=== PATIENT | male | born 1945 | race Caucasian/White ===

== ENCOUNTER 2020-10-31 07:32 | Outpatient (REF) | payer MEDICARE, SELFPAY ==
--- NOTE | ~2020-10-31 | XR_ITS ---
EXAMINATION: XR KNEE, RIGHT XR KNEE, STANDING BILATERAL CLINICAL INFORMATION: Pain. COMPARISON: Right knee on 06/04/2018 TECHNIQUE: Two views right knee and AP bilateral knees standing. FINDINGS: There is a right knee arthroplasty with a femoral and tibial component well articulated with no evidence of loosening. No soft tissue swelling seen on the lateral view. On AP bilateral knee exam, the right knee prosthesis is visualized in alignment. Mild reduction in the lateral and medial compartment joint space left knee is seen. No fracture seen in left knee. 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 No joint effusion is visualized on the present exam. There is no prosthetic loosening.
--- NOTE | ~2020-10-31 | XR_ITS ---
EXAMINATION: XR KNEE, RIGHT XR KNEE, STANDING BILATERAL CLINICAL INFORMATION: Pain. COMPARISON: Right knee on 06/04/2018 TECHNIQUE: Two views right knee and AP bilateral knees standing. FINDINGS: There is a right knee arthroplasty with a femoral and tibial component well articulated with no evidence of loosening. No soft tissue swelling seen on the lateral view. On AP bilateral knee exam, the right knee prosthesis is visualized in alignment. Mild reduction in the lateral and medial compartment joint space left knee is seen. No fracture seen in left knee. 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 No joint effusion is visualized on the present exam. There is no prosthetic loosening.
== END 2020-10-31 07:33 | disposition home or self-care (01) ==
LOC: HO.HOSX 07:32
PROVIDERS: Visit Provider Orthopaedic Surgery
DX: M25.461 Effusion, right knee (principal); M25.562 Pain in left knee; Z96.651 Presence of right artificial knee joint
CPT/HCPCS: 73560; 73565; 99202

== ENCOUNTER → 2020-11-08 10:54 | Outpatient (REF) | payer MEDICARE, SELFPAY ==
--- NOTE | ~2020-11-08 | NM_ITS ---
EXAMINATION: 3 PHASE BONE SCAN CLINICAL INFORMATION: Right knee pain and effusion. Total right knee arthroplasty. COMPARISON: Right knee x-ray 10/31/2020. TECHNIQUE: Following intravenous administration of 26 mCi of 99m- technetium MDP, three-phase bone scan of both knees and whole body third phase was obtained. FINDINGS: On the first phase of bone scan there is significant increased perfusion seen to the right knee. On second phase bone scan there is increased blood pool activity about the right knee joint. On third phase bone scan there is increased activity seen in the right anterior patella and the left medial joint with prosthesis-appearing area. On the third phase whole body scan there is no abnormal activity seen in the calvarium, neck, ribs or the upper extremities. There is smooth scoliosis of dorsolumbar spine. Both kidneys are joined at the interpole suggestive of horseshoe-shaped kidneys with mild focal caliectasis of the left kidney. Moderate intense activity seen in the right patella and moderate activity in the right knee joint. Also visualized is mild increased activity in the left ankle joint. NM/NM bone 3 phase IMPRESSION: Abnormal three-phase bone scan right knee with significant activity in the patella and medial femoral condyle. Also visualized is a right knee photopenic defect from prosthesis. Increased activity in patella may be related to osteomyelitis or osteonecrosis. Correlate with clinical exam. Also visualized is mild increased activity in the medial femoral condyle. Mild degenerative changes left ankle mortise. 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
== END ==
LOC: HO.NUCMED 10:54
PROVIDERS: PCP Physician Assistant Medical; Visit Provider Orthopaedic Surgery
DX: M25.461 Effusion, right knee (principal); Z96.651 Presence of right artificial knee joint
CPT/HCPCS: 78315; A9503

== ENCOUNTER → 2020-11-30 09:50 | Outpatient (BNVA) | payer MEDICARE, SELFPAY | PROVIDERS: Visit Provider Orthopaedic Surgery | DX: T84.032D Mechanical loosening of internal right knee prosthetic joint, subsequent encounter (principal) | CPT/HCPCS: 99212 ==

== ENCOUNTER → 2021-01-02 10:37 | Outpatient (BNVA) | payer MEDICARE, SELFPAY | PROVIDERS: PCP Physician Assistant Medical; Visit Provider Orthopaedic Surgery | DX: Z01.812 Encounter for preprocedural laboratory examination (principal); Z01.810 Encounter for preprocedural cardiovascular examination | CPT/HCPCS: 93005 ==

== ENCOUNTER → 2021-01-23 13:04 | Outpatient (BNVA) | payer MEDICARE, SELFPAY | PROVIDERS: PCP Physician Assistant Medical; Visit Provider Internal Medicine | DX: Z01.810 Encounter for preprocedural cardiovascular examination (principal); I48.0 Paroxysmal atrial fibrillation; I51.9 Heart disease, unspecified; E78.00 Pure hypercholesterolemia, unspecified; Z87.891 Personal history of nicotine dependence; Z88.1 Allergy status to other antibiotic agents; Z79.01 Long term (current) use of anticoagulants; Z79.899 Other long term (current) drug therapy | CPT/HCPCS: 99202 ==

== ENCOUNTER → 2021-01-29 09:18 | Outpatient (REF) | payer MEDICARE, SELFPAY ==
--- NOTE | 2021-01-29 09:22 | CA_ITS ---
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 - There is mild aortic valve regurgitation. Findings Left Ventricle Normal left ventricular cavity size. There is mildly increased left ventricular wall thickness. The left ventricular systolic function is low normal. E/E prime ratio is <8, consistent with normal filling pressures. Evidence suggests grade I (mild) diastolic dysfunction. Visually estimated LVEF about 50%. Right Ventricle Normal right ventricular cavity size and systolic function. Atria The left atrium is mildly dilated. The right atrium is normal in size. Aortic Valve There is a normal trileaflet aortic valve. There is no aortic valve stenosis. There is mild aortic valve regurgitation. Mitral Valve The mitral valve appears normal. There is no mitral valve stenosis. Trace to mild mitral regurgitation. Pulmonic Valve The pulmonic valve was not well visualized. Tricuspid Valve Normal tricuspid valve structure. There is trace tricuspid valve regurgitation. The pulmonary artery systolic pressure is normal. Great Vessels The asc aorta is normal in size. Venous The inferior vena cava is normal in size and collapses greater than 50% with inspiration. Pericardium/Pleural Prominent epicardial adipose tissue noted. Prior Study Comparison No prior study available for comparison. Measurements 2D Linear Measurements IVSd: 1.01 0.6-0.9/0.6-1.0 cm LVIDd: 4.26 3.9-5.3/4.2-5.9 cm LVIDd Index: 2.32 2.4-3.2/2.2-3.1 cm/m2 LVIDs: 3.19 2.0-3.6 cm LVPWd: 1.06 0.7-1.1 cm Ao Root: 3.70 2.1-3.5 cm LA Diam: 3.70 2.7-3.8/3.0-4.0 cm LAIDs Index: 2.01 1.5-2.3 cm/m2 LV Mass: 183.38 67-162/88-224 g LV Mass Index: 99.66 43-95/49-115 g/m2 LVOT Diam: 2.20 3.0+(-)1.3 cm 2D Systolic Function EF 4C: 44.20 >55% EF 2C: 46.50 >55% EF BiP: 45.90 >55% Mitral Valve MV Pk E: 0.45 MV PK A: 0.70 MV Decel Time: 366.00 E/A: 0.60 E'Lateral: 6.74 E'Medial: 7.18 E/E' Med: 6.30 E/E' Lat: 6.70 PHT: 107.00 MVA PHT: 2.06 Decel Mora: 1.23 Aortic Valve AoV Pk Sulaiman: 1.33 AoV Mn Sulaiman: 0.76 AoV VTI: 0.27 AoV Pk Grad: 7.00 Aov Mn Grad: 3.00 JANETTE Cont.VTI: 3.50 AI Pk Sulaiman: 3.65 AI Mora: 1.37 LVOT LVOT Pk Sulaiman: 1.07 LVOT Mn Sulaiman: 0.56 LVOT VTI: 0.25 LVOT Pk Grad: 5.00 LVOT Mn Grad: 2.00 LVOT Diam: 2.20 LVOT Area: 3.80 Diastolic Function MV Pk E: 0.45 MV Pk A: 0.70 E/A: 0.60 E'Medial: 7.18 E/E' Med: 6.30 E' Laterial: 6.74 E/E' Lat: 6.70 Right Ventricle TAPSE (mm): 24.00 TVS' Sulaiman: 13.00 Tricuspid Valve TR Pk Sulaiman: 2.11 TR Pk Grad: 18.00 RA Press: 3.00 RVSP: 21.00 Great Vessels Aorta Ao Root-2D: 3.70 2.0-3.7 cm Pulmonary Valve PV Pk Sulaiman: 0.84 Peak PV Grad: 3.00 Updated in Other Vendor System with Status of Final Von Gu MD electronically signed on 01/29/2021 11:54:56 AM with status of Final
== END ==
LOC: HO.CARD 09:18
PROVIDERS: Visit Provider Internal Medicine
DX: I48.0 Paroxysmal atrial fibrillation (principal)
CPT/HCPCS: 93306

== ENCOUNTER → 2021-01-30 09:22 | Outpatient (REF) | payer MEDICARE, SELFPAY ==
--- NOTE | ~2021-01-30 | NM_ITS ---
Myocardial perfusion study Indication: Preoperative cardiovascular risk stratification Technique: The patient was brought in for a Lexiscan perfusion study on 01/30/2021. Patient performed low-level exercise and was injected 0.4 mg of Lexiscan intravenously. Within a minute of injection, 25 mCi of sestamibi was given intravenously. Images were obtained using the SPECT gamma camera interlaced with the gating device. Images were obtained in supine position. Resting perfusion study was performed on 01/31/2021. Patient was administered 25 mCi of sestamibi intravenously at rest. Images were then obtained in supine position. Images obtained with and without CT attenuation. Total DLP 111 mGy-cm. Images were processed with the software and compared side to side in short axis, horizontal long axis and vertical long axis views. Findings: The stress perfusion study showed nonattenuated images show mildly to moderately reduced uptake in the inferior wall of the LV myocardium. Is also mildly reduced uptake in the inferoseptal wall of the LV myocardium. Remainder of the LV myocardium is normally perfused. Attenuation corrected images show mildly reduced uptake in the anterior wall and moderately to severely reduced uptake in the apex as well as mildly reduced uptake in the inferior wall of the LV myocardium. Lateral wall with normal perfusion.. The gated study shows reduced LV systolic function with calculated LVEF of 46%. LV cavity is mildly to moderately dilated size. The gated study shows reduced wall thickening and contraction of inferior segments. Resting study shows nonattenuated images show mildly to moderately reduced uptake in the inferior as well as inferoseptal wall of the LV myocardium. Remainder of the LV myocardium is normally perfused. Attenuation corrected images show normal uptake in the anterior wall of the LV myocardium. There is also improved uptake in the apex.. Gating at rest reveals inferior wall motion abnormality with ejection fraction at 50%. The findings are consistent with fixed inferior defect most suggestive of nontransmural infarct in the RCA territory. Inferior wall is normally perfused on nonattenuated images which may suggest normal perfusion. However there is abnormality noted on nonattenuated images.. NM/NM cardiolite stress test Impression: 1. Myocardial perfusion imaging study shows fixed inferior defect suggestive nontransmural infarct. There is no clear reversible defect on nonattenuated images suggestive of ischemia. 2. Gated LVEF is 46% with stress and 50% with rest 3. Transient ischemic dilatation present EKG is nondiagnostic for ischemia
--- NOTE | 2021-01-30 09:25 | CA_ITS ---
Acquisition Time: 2021-01-30 09:24:55 Total Exercise Time: 00:02:00 Test Indications: Abnormal ECG Medications: FLECAINIDE PRAVASTATIN WARFARIN Protocol: LEXISCAN Max HR: 096 BPM 67% of Pred: 143 BPM Max BP: 150/062 mmHG Max Work Load: 1.0 METS Pharmacological stress test with Lexiscan injection, while sitting and kicking his legs, without anginal symptoms, without arrythmia, with normotensive response to injection, with nondiagnostic EKG for ischemia. In recovery he reported shortness of breath and lightheadedness that was treated with aminophylline 75mg IVP to reverse Lexiscan with improvement in symptoms. Nuclear images pending. Test reviewed with Dr Gu. Referred By: Von Gu Overread By: RAYNA WAN
== END ==
LOC: HO.CARD 09:22
PROVIDERS: Visit Provider Internal Medicine
DX: Z01.810 Encounter for preprocedural cardiovascular examination (principal)
CPT/HCPCS: 78452; 93017; A9500; J0280; J2785

== ENCOUNTER 2021-02-04 12:47 | Outpatient (REF) | payer MEDICARE, SELFPAY ==
--- NOTE | ~2021-02-04 | XR_ITS ---
EXAMINATION: XR KNEE, RIGHT CLINICAL INFORMATION: Right knee pain. COMPARISON: 10/31/2020 and studies dating back to 09/16/2009 TECHNIQUE: AP and lateral views of the right knee. FINDINGS: The patient status post right knee arthroplasty. The femoral and tibial components appear in alignment on lateral view. No evidence of fracture or loosening. There is a right knee effusion. Vascular calcifications are noted. XR/XR knee RT 2V IMPRESSION: Status post right total knee arthroplasty without acute fracture or evidence of loosening. Right knee effusion.
[2021-02-04 18:29] LABS: Erythrocyte Sedimentation Rate 23 MM/HR (0-15)
== END 2021-02-04 12:48 | disposition home or self-care (01) ==
LOC: HO.HOSX 12:47
PROVIDERS: Visit Provider Orthopaedic Surgery
DX: M25.561 Pain in right knee (principal); Z87.891 Personal history of nicotine dependence; Z96.651 Presence of right artificial knee joint
CPT/HCPCS: 36415; 73560; 85652; 86140; 99212

== ENCOUNTER → 2021-02-11 11:59 | Outpatient (BNVA) | payer MEDICARE, SELFPAY | PROVIDERS: Visit Provider Orthopaedic Surgery | DX: M25.461 Effusion, right knee (principal); Z96.651 Presence of right artificial knee joint | CPT/HCPCS: 20610; 99212 ==

== ENCOUNTER → 2021-02-14 13:04 | Outpatient (BNVA) | payer MEDICARE, SELFPAY | PROVIDERS: Visit Provider Orthopaedic Surgery | DX: T84.59XA Infection and inflammatory reaction due to other internal joint prosthesis, initial encounter (principal); Z96.659 Presence of unspecified artificial knee joint | CPT/HCPCS: 99212 ==

== ENCOUNTER 2021-02-19 07:47 | Inpatient (IN) | payer MEDICARE, SELFPAY ==
[2021-02-18 13:00] VITALS: BP 178/72; PULSE 50; RESP 20; O2SAT 96; BMI 25.0
--- NOTE | 2021-02-18 13:27 | HO.ANESPROP2 ---
Documented by User: Elinor Godinez NP 02/18/21 14:44 HPI - Anesthesia Eval Consult details Narrative: 75yo M for Right Knee Total resection with antibiotic spacer insertion R TKA done 2016 Cardiac cleared at [facility] Coumadin for afib Pt stacy at [facility]. Recently started on Metoprolol by cardiology (switched from flecinide). PCP clearance lists ADR with metoprolol (severe bradycardia). Case reviewed with Dr Carmen. Pt to hold metoprolol preop. [facility] Active Problems Active Problems: All Active Problems (Updated 02/15/21 @ 08:20 by Izabella Herrera RN) Effusion, right knee (Acute) History of total right knee replacement (TKR) (Acute) Mechanical loosening of internal right knee prosthetic joint, subsequent encounter (Acute) PAF (paroxysmal atrial fibrillation) (Acute) Preoperative cardiovascular examination (Acute) Encounter for monitoring anti-arrhythmic therapy (Acute) Infected prosthetic knee joint (Acute) Past Medical History Medical History (Updated 02/15/21 @ 08:20 by Izabella Herrera RN) Abnormal gait Arthritis Atrial fibrillation Benign essential hypertension BPH (benign prostatic hyperplasia) Coronary arteriosclerosis in [place] artery Glaucoma Heart disease High cholesterol Myocardial infarct, old Raynaud phenomenon RBBB (right bundle branch block) Family History Family History Father No problems noted. Mother No problems noted. Family history of problems with anesthesia: No Surgical History Surgical History (Updated 02/18/21 @ 13:11 by Izabella Herrera RN) History of bunionectomy of left great toe History of cardiac radiofrequency ablation History of cystoscopy History of left inguinal hernia repair History of meniscectomy of right knee History of prostate surgery History of total knee replacement History of Problems with Anesthesia: No Social History Social History Are you a primary patient centered care specialist to a significant other at home: No Do you presently have visiting nurse or other home services: No Alcohol intake: never Patient Tobacco Use Status: Former Tobacco user Quit Date: 1991 Tobacco use type: Cigarette Second Hand Smoke Exposure: No Use of substances other than those prescribed or required for medical reasons: No Have you been hit, kicked, punched, or otherwise hurt by someone within the past year? If so, by whom?: No Are you DNR?: No Advance Directives: No (Patient to bring copy DOS) Advance Directives Information Provided: Yes Advance Directives on File: No Recently lost weight without trying: No Eating poorly because of decreased appetite: No Nutrition Risks: No Nutritional Risk Current occupational status: retired Current occupation: left handed Narrative Narrative: No recent illness No CP/SOB with walking Meds Allergies Allergy/AdvReac Type Severity Reaction Status Date / Time ciprofloxacin [From CIPRO] Allergy Intermediate RASH Verified 02/11/21 12:24 Chocolate Allergy Sneezing Verified 02/18/21 13:15 milk Allergy Sneezing Verified 02/18/21 13:25 metoprolol AdvReac Severe Verified 02/18/21 13:28 Bradycardia Home Medications Medication Instructions Recorded Confirmed Last Taken Type brimonidine 0.2 % eye drops 1 drp OPHTHALMIC (EYE) BID ml 10/31/20 02/18/21 02/19/21 History dorzolamide 22.3 mg-timolol 6.8 1 drp OPHTHALMIC (EYE) BID ml 10/31/20 02/18/21 Unknown History mg/mL eye drops latanoprost 0.005 % eye drops 1 drp OPHTHALMIC (EYE) BEDTIME 10/31/20 02/15/21 02/19/21 History pravastatin 80 mg tablet 80 mg PO BEDTIME 10/31/20 02/15/21 Unknown History warfarin 2.5 mg tablet 2.5 mg PO DAILY 10/31/20 02/18/21 02/14/21 History cholecalciferol (vitamin D3) 25 25 mcg PO DAILY 02/18/21 02/18/21 Unknown History mcg (1,000 unit) capsule (Vitamin D3) Exam Exam Date and Time: February 18, 2021 1327 Height,Weight and Vital Signs: Height 5 ft 7 in Weight 72.575 kg Last Vital Signs Pulse 50 02/18/21 13:00 Resp 20 02/18/21 13:00 BP 178/72 H 02/18/21 13:00 Pulse Ox 96 02/18/21 13:00 Pertinent Lab Results Pertinent Lab Results: Laboratory Tests 01/02/21 01/02/21 11:58 11:58 WBC 6.8 Hgb 13.3 L Hct 41.2 L Plt Count 204 Sodium 141 Potassium 4.3 Chloride 109 H Carbon Dioxide 26 BUN 22 H Creatinine 1.04 Narrative Narrative: EKG 12/2020 Vent. Rate : 047 BPM ? ? Atrial Rate : 047 BPM ?? P-R Int : 192 ms? QRS Dur : 146 ms ? ? QT Int : 482 ms ? ? ? P-R-T Axes : 077 -58 035 degrees ?? QTc Int : 426 ms ? Sinus bradycardia Left axis deviation Right bundle branch block Abnormal ECG When compared with ECG of 17-AUG-2018 14:15, QT has shortened ECHO 01/29/21 Conclusions: - Visually estimated LVEF about 50%. ? - There is mild aortic valve regurgitation.? ? ? NM cardiolite stress test 01/2021 Impression: ? 1.? Myocardial perfusion imaging study shows fixed inferior defect suggestive nontransmural infarct. There is no clear reversible defect on nonattenuated images suggestive of ischemia. 2.? Gated LVEF is 46% with stress and 50% with rest 3. Transient ischemic dilatation present ? EKG is nondiagnostic for ischemia Airway Mallampati Class: I TM Dist: >3cm Neck ROM: Full Loose/Missing/Broken Teeth: Yes (Molars extracted, 1xcrown) Heart: stacy, regular Lungs: CTAB Assessment and Plan Assessment Anesthesia Assessment: Anesthesia Plan Discussed and PAT Visit Final Anesthetic Review Family History of Problems with Anesthesia: No History of Problems with Anesthesia: No Documented by User: Jeromy Beckett MD 02/19/21 10:59 [facility] Past Medical History Medical History (Updated 02/15/21 @ 08:20 by Izabella Herrera RN) Abnormal gait Arthritis Atrial fibrillation Benign essential hypertension BPH (benign prostatic hyperplasia) Coronary arteriosclerosis in [place] artery Glaucoma Heart disease High cholesterol Myocardial infarct, old Raynaud phenomenon RBBB (right bundle branch block) Family History Family History Father No problems noted. Mother No problems noted. Surgical History Surgical History (Updated 02/18/21 @ 13:11 by Izabella Herrera RN) History of bunionectomy of left great toe History of cardiac radiofrequency ablation History of cystoscopy History of left inguinal hernia repair History of meniscectomy of right knee History of prostate surgery History of total knee replacement Social History Social History Are you a primary patient centered care specialist to a significant other at home: No Do you presently have visiting nurse or other home services: No Alcohol intake: never Patient Tobacco Use Status: Former Tobacco user Quit Date: 1991 Tobacco use type: Cigarette Second Hand Smoke Exposure: No Use of substances other than those prescribed or required for medical reasons: No Have you been hit, kicked, punched, or otherwise hurt by someone within the past year? If so, by whom?: No Are you DNR?: No Advance Directives: No (Patient to bring copy DOS) Advance Directives Information Provided: Yes Advance Directives on File: No Recently lost weight without trying: No Eating poorly because of decreased appetite: No Nutrition Risks: No Nutritional Risk Current occupational status: retired Current occupation: left handed Meds Allergies Allergy/AdvReac Type Severity Reaction Status Date / Time ciprofloxacin [From CIPRO] Allergy Intermediate RASH Verified 02/11/21 12:24 Chocolate Allergy Sneezing Verified 02/18/21 13:15 milk Allergy Sneezing Verified 02/18/21 13:25 metoprolol AdvReac Severe Verified 02/18/21 13:28 Bradycardia Home Medications Medication Instructions Recorded Confirmed Last Taken Type brimonidine 0.2 % eye drops 1 drp OPHTHALMIC (EYE) BID ml 10/31/20 02/18/21 02/19/21 History dorzolamide 22.3 mg-timolol 6.8 1 drp OPHTHALMIC (EYE) BID ml 10/31/20 02/18/21 Unknown History mg/mL eye drops latanoprost 0.005 % eye drops 1 drp OPHTHALMIC (EYE) BEDTIME 10/31/20 02/15/21 02/19/21 History pravastatin 80 mg tablet 80 mg PO BEDTIME 10/31/20 02/15/21 Unknown History warfarin 2.5 mg tablet 2.5 mg PO DAILY 0602/18/21 02/14/21 History cholecalciferol (vitamin D3) 25 25 mcg PO DAILY 02/18/21 02/18/21 Unknown History mcg (1,000 unit) capsule (Vitamin D3) Assessment and Plan Final Anesthetic Review NPO: Yes ASA Class: III Final Preanesthetic Review: No Changes in Pt Med Stat, Meds/Allgs Chart Reviewed, Consent Obtained/Reviewed and Anes Risks/Benef Reviewed Patient Risk: Intermediate Procedure Risk: Intermediate Anesthetic Plan Anesthetic Plan: GA and Regional Block Disposition: Standard PACU
[2021-02-18 15:31] LABS: MRSA Nasal PCR NEGATIVE (Negative); SA Nasal PCR NEGATIVE (Negative)
[2021-02-18 15:57] LABS: Basophils Absolute Auto 0.1 X10*3/uL (0.0-0.2); Basophils Percent Auto 0.8 % (0-2); Eosinophils Absolute Auto 0.3 X10*3/uL (0.0-0.4); Eosinophils Percent Auto 4.7 % (0-4); Hematocrit 44.7 % (42-52); Imm Gran Abs Auto 0.02 X10*3/uL (0.00-0.03); Imm Gran Pct Auto 0.3 % (0.0-0.4); Lymphocytes Absolute Auto 1.3 X10*3/uL (1.2-4.9); Lymphocytes Percent Auto 19.4 % (20-40); MANUAL DIFF FLAG NO; Mean Corpuscular HGB Conc 31.3 g/dl (31.0-36.0); Mean Corpuscular Hemoglobin 28.1 pg (27.0-33.0); Mean Corpuscular Volume 89.8 fL (80-98); Mean Platelet Volume 11.2 fL (9.4-12.4); Monocytes Absolute Auto 0.8 X10*3/uL (0.1-1.2); Monocytes Percent Auto 12.6 % (2-11); Neutrophils Absolute Auto 4.1 X10*3/uL (2.0-8.3); Neutrophils Percent Auto 62.2 % (45-73); Platelet Count 287 X10*3/uL (160-400); Red Blood Count 4.98 X10*6/uL (4.60-5.80); Red Cell Distribution Width 13.1 % (11.0-16.0); White Blood Count 6.7 X10*3/uL (4.8-10.8)
[2021-02-18 16:29] LABS: C Reactive Protein 3.34 mg/dL (< or = 0.50)
[2021-02-18 16:49] LABS: Erythrocyte Sedimentation Rate 33 MM/HR (0-15)
[2021-02-19] VITALS (12 sets, daily range): BP systolic 113–161; BP diastolic 61–73; PULSE 46–73; RESP 14–18; TEMP 36.3–37.2; O2SAT 94–100
--- NOTE | ~2021-02-19 | XR_ITS ---
EXAMINATION: XR KNEE, RIGHT CLINICAL INFORMATION: Revision right TKA with spacer COMPARISON: Radiographs right knee 10/31/2020 and 02/04/2021 TECHNIQUE: AP and crosstable lateral views of the right knee are obtained. FINDINGS: There are postsurgical changes with removal right total knee arthroplasty hardware and placement of spacer. There are numerous punctate high attenuation densities adjacent to the spacer. There are degenerative changes posterior patella and some chronic mineralization in the anterior superior soft tissues again seen. No acute fracture or dislocation. There is expected gas in the anterior superficial soft tissues and suprapatellar bursa with overlying skin anoop. XR/XR knee RT 2V IMPRESSION: Postsurgical changes. No acute fracture or dislocation.
[2021-02-19 08:14] LABS: INTERNATIONAL NORM RATIO 1.3 (0.9-1.1); Prothrombin Time 14.7 SEC (9.9-13.0)
[2021-02-19 08:34] LABS: COVID-19 Test Negative (Negative)
[2021-02-19] MEDS: Lactated Ringers 1,000 ML 100 ML IVCONT (08:47)
--- NOTE | 2021-02-19 09:54 | MHC.SHP ---
Pre-Procedural Eval Section A Date of Service: 02/19/21 The patient is an INPATIENT: No Changes since office visit: Yes Patient answered all questions; No Cold of Flu in the past 2 weeks, No New Medical Problems and No Changes in Medication The History & Physical has been completed within 30 days and I have reviewed it.: Yes Section B Chief Complaint: infected knee Allergies: Allergies Allergy/AdvReac Type Severity Reaction Status Date / Time ciprofloxacin [From CIPRO] Allergy Intermediate RASH Verified 02/11/21 12:24 Chocolate Allergy Sneezing Verified 02/18/21 13:15 milk Allergy Sneezing Verified 02/18/21 13:25 metoprolol AdvReac Severe Verified 02/18/21 13:28 Bradycardia Plan I have reviewed the history and physical and performed a pertinent physical examination on my patient. No changes have occurred unless specified.
[2021-02-19 11:17] LABS: Source Synovial Fluid Right knee
[2021-02-19 11:46] LABS: MN% 16.2 %; PMN% 83.8 %
[2021-02-19 11:47] LABS: RBC Synovial Fluid < 0.002 X10*6/uL; WBC Synovial Fluid 19.205 X10*3/uL
--- NOTE | 2021-02-19 12:50 | P.BOP_ITS ---
Brief Operative Note Date of Service: 02/19/21 Pre-op diagnosis: infected right knee arthroplasty Procedure: resection arthroplasty and placement of antibiotic spacer Implants: Remedy knee spacer M/M Surgeon: Valdez Agrawal MD Anesthesia: GETA and regional Was an Angle Furnaceman used for this Procedure?: Yes Angle Furnaceman: Devante Rinaldi Estimated blood loss (mL): 250 IV fluids (mL): 1,200 Pathology: other (cultures x3) Condition: stable Disposition: PACU
--- NOTE | 2021-02-19 12:53 | W.PM.OPN ---
Operative Note Operative Note Date of Service: 02/19/21 Narrative: Pre-op diagnosis: infected right knee arthroplasty Procedure: resection arthroplasty and placement of antibiotic spacer Implants: Remedy knee spacer M/M Surgeon: Valdez Agrawal MD Anesthesia: GETA and regional Was an Aircraft Steel Fabricator used for this Procedure?: Yes Aircraft Steel Fabricator: Devante Rinaldi Estimated blood loss (mL): 250 IV fluids (mL): 1,200 Pathology: other (cultures x3) Condition: stable Disposition: PACU Indications: Patient has had pain and effusion in the right knee for years. Aspiration showed elevated cell count with elevated synovial CRP as well as serum elevation of ESR and CRP all consistent with chronic infection. He was consented to undergo resection arthroplasty with placement of antibiotic spacer. Procedure in detail: Patient was brought to the operating room placed supine on the operative table and prepped and draped in standard sterile fashion. A time-out was called to identify proper site proper procedure proper surgeon IV antibiotics per weight were not administered. I aspirated 30 mL of straw-colored turbid fluid and sent this for culture. I then made a standard midline incision down to the retinaculum and performed a medial parapatellar arthrotomy. I everted patella and performed a medial peel. My Hohmann retractors were placed and I examined the knee. There was a fulminant synovitis which was removed and suspicious looking debris in the suprapatellar pouch which was removed and sent for culture. I then used a sagittal saw to undermine the femoral component and a flexible osteotome. I was able to remove the femoral component with minimal bone loss. Cultures deep to the prosthesis were obtained and sent. IV antibiotics were then removed. I then placed my dull Hohmann to protect the popliteal fossa and used a sagittal saw again to undermine the tibial component cutting that to trabecular metal posts. Again there was minimal bone loss upon removal and I subsequently used a flexible osteotome to remove the 2 posts. On the medial side there was some bone loss distal to the post. This was a contained defect. I then sized the spacer on the back table and trialed a medium femur and a medium tibia. I was happy with the extension and stability therefore all instrumentation was removed. I then proceeded to remove all necrotic debris from both the bone in the surrounding soft tissue envelope with a rongeur and currette and 9 L of warm saline was used via pulse lavage to thoroughly irrigate the knee. I then mixed 2 bags of Pal[place] bone cement with 10 g of powdered vancomycin this was then placed on the underside of the spacer and the components were placed while in flexion. I extended the knee and was able to compress the cement with acceptable alignment of the spacer. At full extension he was stable. Once the cement was dry all excess cement was removed. I then took the knee through 110 degree range of motion and was stable. I then performed a layered closure with Quill, subcuticular monofilament followed by anoop on the skin. Patient was sent placed in sterile dressing extubated brought to recovery room stable condition there were no known complications. He be placed on IV antibiotics and we will follow him for the next 2-3 months and when there is no evidence of infection he will return for reimplantation.
[2021-02-19 12:59] LABS: BF Shift QC OK YES; Lymphocytes Synovial Fluid 3 %; Monocytes Synovial Fluid 2 %; Neutrophils Synovial Fluid 95 %
[2021-02-19] MEDS: ondansetron HCL 4 MG/2 ML VIAL IVPUSH (13:12)
[2021-02-19] MEDS: Dextrose 5 % and 0.45 % NaCl 1,000 ML 80 ML IVCONT (14:09)
[2021-02-19 15:57] LABS: Creatinine Clr Calc Pharmacy 62.1; Estimated Glomerular Filt Rate > 60
--- NOTE | 2021-02-19 16:07 | PM.IMCN ---
History of Present Illness Data of Consult Service Date: 02/19/21 Primary Care Provider: Glenny Henderson PA-C HPI Reason for consult: afib 75-year-old male admitted for infected right knee arthroplasty, now status post resection of arthroplasty replacement of antibiotic spacer. Patient had right knee replacement in 2016, he has been having pain and swelling in the right knee and went to Orthopedics who performed aspiration which showed elevated cell count and synovial CRP as well as elevated serum ESR and CRP. Patient is being seen postoperatively, reports pain at surgical site. Denies any chest pain, shortness of breath, fever, chills. Review of Systems Review of Systems: Constitutional: Denies fever, denies Chills Eyes: denies blurry vision ENT: denies sore throat CVS: denies chest pain Respiratory: Denies dyspnea GI: no abdominal pain : denies dysuria MSK: denies neck pain Skin: denies rash Neuro: denies specific motor weakness Psych: denies suicidal ideation Endocrine: denies heat/cold intolerance Hematologic: denies easy bleeding Allergy: denies hives COUNT INCLUDES THE [facility] Medical History Abnormal gait Arthritis Atrial fibrillation Benign essential hypertension BPH (benign prostatic hyperplasia) Coronary arteriosclerosis in [place] artery Glaucoma Heart disease High cholesterol Myocardial infarct, old Raynaud phenomenon RBBB (right bundle branch block) Family History Father No problems noted. Mother No problems noted. Pertinent family history: see above Surgical History History of bunionectomy of left great toe History of cardiac radiofrequency ablation History of cystoscopy History of left inguinal hernia repair History of meniscectomy of right knee History of prostate surgery History of total knee replacement Social History Are you a primary animal care supervisor to a significant other at home: No Do you presently have visiting nurse or other home services: No Alcohol intake: never Patient Tobacco Use Status: Former Tobacco user Quit Date: 1991 Tobacco use type: Cigarette Second Hand Smoke Exposure: No Use of substances other than those prescribed or required for medical reasons: No Have you been hit, kicked, punched, or otherwise hurt by someone within the past year? If so, by whom?: No Are you DNR?: No Advance Directives: No (Patient to bring copy DOS) Advance Directives Information Provided: Yes Advance Directives on File: No Recently lost weight without trying: No Eating poorly because of decreased appetite: No Nutrition Risks: No Nutritional Risk Current occupational status: retired Current occupation: left handed Meds Allergies Allergy/AdvReac Type Severity Reaction Status Date / Time ciprofloxacin [From CIPRO] Allergy Intermediate RASH Verified 02/11/21 12:24 Chocolate Allergy Sneezing Verified 02/18/21 13:15 milk Allergy Sneezing Verified 02/18/21 13:25 metoprolol AdvReac Severe Verified 02/18/21 13:28 Bradycardia Active Medications: Current Medications Acetaminophen (Acetaminophen 325 Mg Tablet) 650 mg PO Q6H PRN PRN Reason: Pain, Mild (Pain Scale 1-3) Celecoxib (Celecoxib 200 Mg Capsule) 200 mg PO BID [facility] Docusate Sodium (Docusate Sodium 100 Mg Capsule) 100 mg PO BID [facility] Hydromorphone HCl (Hydromorphone Hcl 0.5 Mg/0.5 Ml Syringe) 0.25 mg IVPUSH Q4H PRN; Protocol PRN Reason: Pain, Severe (Pain Scale 7-10) Dextrose/Sodium Chloride (D51/2ns) 1,000 mls @ 80 mls/hr IVCONT .[id number] [facility] Last Admin: 02/19/21 14:09 Dose: 80 mls/hr Documented by: Vancomycin HCl 1,000 mg/ (Sodium Chloride) 270 mls @ 270 mls/hr IV BID [facility] Metoprolol Succinate (Metoprolol Succinate Er 25 Mg Tab.Er.24h) 25 mg PO DAILY [facility]; Protocol Ondansetron HCl (Ondansetron Hcl 4 Mg/2 Ml Vial) 4 mg IVPUSH Q8H PRN PRN Reason: Nausea and Vomiting Oxycodone HCl (Oxycodone Hcl Immed Release 5 Mg Tablet) 5 mg PO Q4H PRN PRN Reason: Pain, Moderate (Pain Scale 4-6 Oxycodone HCl (Oxycodone Hcl Er 10 Mg Tab.Er.12h) 10 mg PO BID [facility] Sodium Chloride (0.9 % Sodium Chloride Flush 3 Ml Syringe) 3 ml IVFLUSH QSHIFT [facility] Warfarin Sodium (Warfarin Sodium 2.5 Mg Tablet) 2.5 mg PO DAILY [facility] Home Medications Medication Instructions Recorded Confirmed Last Taken Type brimonidine 0.2 % eye drops 1 drp OPHTHALMIC (EYE) BID ml 10/31/20 02/18/21 02/19/21 History dorzolamide 22.3 mg-timolol 6.8 1 drp OPHTHALMIC (EYE) BID ml 10/31/20 02/18/21 Unknown History mg/mL eye drops latanoprost 0.005 % eye drops 1 drp OPHTHALMIC (EYE) BEDTIME 10/31/20 02/15/21 02/19/21 History pravastatin 80 mg tablet 80 mg PO BEDTIME 10/31/20 02/15/21 Unknown History warfarin 2.5 mg tablet 2.5 mg PO DAILY 10/31/20 02/18/21 02/14/21 History cholecalciferol (vitamin D3) 25 25 mcg PO DAILY 02/18/21 02/18/21 Unknown History mcg (1,000 unit) capsule (Vitamin D3) Physical Exam Vital Signs and Narrative: Vital Signs: Last Vital Signs Temp 97.5 F 02/19/21 15:22 Pulse 59 02/19/21 15:22 Resp 14 02/19/21 15:22 BP 139/68 02/19/21 15:22 Pulse Ox 94 02/19/21 15:22 Body Mass Index 25.0 General: in pain, lethargic HEENT: atraumatic Neck: normal to visual inspection CVS: S1, S2, RRR Resp: CTA bilateral Chest: non tender GI: soft, non tender, non distended : no CVA tenderness Skin: no rashes Extremities: no edema Neuro: Oriented X3, grossly intact Psych: cooperative Results Labs CBC and Chem 7: 02/18/21 14:10 02/19/21 15:38 Labs: Laboratory Results - last 24 hr 02/18/21 02/18/21 02/19/21 14:10 14:10 07:57 ESR 33 H PT 14.7 H INR 1.3 H Estim Creat Clear Calc Estimated GFR C-Reactive Protein 3.34 H Synovial Source Synovial WBC Synovial RBC Synovial Neutrophils Synovial Lymphocytes Synovial Monocytes COVID-19 (RY) COVID-19 Clin Com 02/19/21 02/19/21 02/19/21 07:58 11:05 15:38 ESR PT INR Estim Creat Clear Calc 62.1 Estimated GFR > 60 C-Reactive Protein Synovial Source Right knee Synovial WBC 19.205 Synovial RBC < 0.002 Synovial Neutrophils 95 Synovial Lymphocytes 3 Synovial Monocytes 2 COVID-19 (RY) Negative COVID-19 Clin Com See Note Imaging Radiologist's Impressions: Impressions Knee X-Ray 02/19/21 13:44 IMPRESSION: Postsurgical changes. No acute fracture or dislocation. 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
[2021-02-19] MEDS: oxyCODONE HCl Immed Release 5 MG TABLET PO (16:18)
[2021-02-19] MEDS: vancomycin HCL 1,500 MG in 0.9 % Sodium Chloride 500 ML 333.33 MG IV (18:24)
[2021-02-19] MEDS: 0.9 % Sodium Chloride Flush 3 ML SYRINGE IVFLUSH (18:26)
[2021-02-19] MEDS: Warfarin Sodium 2.5 MG TABLET PO (18:26)
[2021-02-19] MEDS: HYDROmorphone HCl 0.5 MG/0.5 ML SYRINGE 0.25 MG IVPUSH (18:34)
[2021-02-19] MEDS: oxyCODONE HCl ER 10 MG TAB.ER.12H PO (21:08)
[2021-02-19] MEDS: Celecoxib 200 MG CAPSULE PO (21:08)
[2021-02-19] MEDS: Docusate Sodium 100 MG CAPSULE PO (21:08)
[2021-02-20] MEDS: HYDROmorphone HCl 0.5 MG/0.5 ML SYRINGE 0.25 MG IVPUSH ×2 (00:34→06:54)
[2021-02-20 03:54] VITALS: BP 109/64; PULSE 67; RESP 17; TEMP 36.6; O2SAT 93
[2021-02-20] MEDS: Dextrose 5 % and 0.45 % NaCl 1,000 ML 80 ML IVCONT (04:45)
[2021-02-20 04:57] LABS: MANUAL DIFF FLAG NO
[2021-02-20 05:02] LABS: Basophils Percent Auto 0.4 % (0-2); Eosinophils Percent Auto 0.2 % (0-4); Hematocrit 33.9 % (42-52); Hemoglobin 10.9 g/dl (14.0-18.0); Imm Gran Abs Auto 0.02 X10*3/uL (0.00-0.03); Imm Gran Pct Auto 0.2 % (0.0-0.4); Lymphocytes Absolute Auto 1.3 X10*3/uL (1.2-4.9); Lymphocytes Percent Auto 13.5 % (20-40); Mean Corpuscular HGB Conc 32.2 g/dl (31.0-36.0); Mean Corpuscular Hemoglobin 28.6 pg (27.0-33.0); Mean Platelet Volume 10.8 fL (9.4-12.4); Monocytes Absolute Auto 1.4 X10*3/uL (0.1-1.2); Monocytes Percent Auto 15.1 % (2-11); Neutrophils Absolute Auto 6.6 X10*3/uL (2.0-8.3); Neutrophils Percent Auto 70.6 % (45-73); Platelet Count 250 X10*3/uL (160-400); Red Blood Count 3.81 X10*6/uL (4.60-5.80); Red Cell Distribution Width 13.2 % (11.0-16.0); White Blood Count 9.3 X10*3/uL (4.8-10.8)
[2021-02-20 05:08] LABS: INTERNATIONAL NORM RATIO 1.3 (0.9-1.1); Prothrombin Time 14.9 SEC (9.9-13.0)
[2021-02-20 05:19] LABS: Anion Gap 12 (12-20); Blood Urea Nitrogen 16 mg/dL (9-16); Calcium 7.9 mg/dL (8.4-10.2); Carbon Dioxide 23 mmol/L (22-29); Chloride 108 mmol/L (96-108); Creatinine Clr Calc Pharmacy 62.8; Estimated Glomerular Filt Rate > 60; Glucose Fasting 141 mg/dL (60-99); Potassium 4.1 mmol/L (3.3-5.1); Sodium 139 mmol/L (135-145)
[2021-02-20 07:53] VITALS: BP 104/56; PULSE 73; RESP 18; TEMP 36.6; O2SAT 93
--- NOTE | 2021-02-20 08:20 | PM.PNORT ---
Subjective Subjective Date of Service: 02/20/21 Interval history: Postop day 1 status post right knee resection arthroplasty with placement of antibiotic spacer No overnight events Difficulty voiding due to enlarged prostate Pain is tolerable, denies chest pain shortness of breath or palpitations. Physical Exam Vital Signs: Vital Signs: Last Vital Signs Temp 97.8 F 02/20/21 07:53 Pulse 73 02/20/21 07:53 Resp 18 02/20/21 07:53 BP 104/56 L 02/20/21 07:53 Pulse Ox 93 02/20/21 07:53 Body Mass Index 25.0 Const: General: cooperative, healthy appearing and no acute distress Resp: Effort & Inspection: normal respiratory effort and able to speak in complete sentences Cardio: Rate: regular rate Peripheral pulses: Peripheral pulses 2+ throughout GI: Palpation (GI): Soft to palpation Skin: General skin exam: no rashes or lesions noted Extrem: Other: Bandage clean dry and intact No erythema or joint effusion. Calf supple nontender. Neurovascularly intact. 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 Fall Risk Details Current Medications: Current Medications Acetaminophen (Acetaminophen 325 Mg Tablet) 650 mg PO Q6H PRN PRN Reason: Pain, Mild (Pain Scale 1-3) Celecoxib (Celecoxib 200 Mg Capsule) 200 mg PO BID [facility] Last Admin: 02/19/21 21:08 Dose: 200 mg Documented by: Docusate Sodium (Docusate Sodium 100 Mg Capsule) 100 mg PO BID [facility] Last Admin: 02/19/21 21:08 Dose: 100 mg Documented by: Hydromorphone HCl (Hydromorphone Hcl 0.5 Mg/0.5 Ml Syringe) 0.25 mg IVPUSH Q4H PRN; Protocol PRN Reason: Pain, Severe (Pain Scale 7-10) Last Admin: 02/20/21 06:54 Dose: 0.25 mg Documented by: Dextrose/Sodium Chloride (D51/2ns) 1,000 mls @ 80 mls/hr IVCONT .[id number] [facility] Last Admin: 02/20/21 04:45 Dose: 80 mls/hr Documented by: Vancomycin HCl 1,250 mg/ (Sodium Chloride) 250 mls @ 166.667 mls/hr IV Q24H [facility] Metoprolol Succinate (Metoprolol Succinate Er 25 Mg Tab.Er.24h) 25 mg PO DAILY [facility]; Protocol Ondansetron HCl (Ondansetron Hcl 4 Mg/2 Ml Vial) 4 mg IVPUSH Q8H PRN PRN Reason: Nausea and Vomiting Oxycodone HCl (Oxycodone Hcl Immed Release 5 Mg Tablet) 5 mg PO Q4H PRN PRN Reason: Pain, Moderate (Pain Scale 4-6 Last Admin: 02/19/21 16:18 Dose: 5 mg Documented by: Oxycodone HCl (Oxycodone Hcl Er 10 Mg Tab.Er.12h) 10 mg PO BID [facility] Last Admin: 02/19/21 21:08 Dose: 10 mg Documented by: Pharmacy Consult (Consult Rx Vancomycin Dosing) 1 each MISCELLANE DAILY PRN PRN Reason: Consult order Sodium Chloride (0.9 % Sodium Chloride Flush 3 Ml Syringe) 3 ml IVFLUSH QSHIFT [facility] Last Admin: 02/20/21 00:31 Dose: Not Given Documented by: Warfarin Sodium (Warfarin Sodium 2.5 Mg Tablet) 2.5 mg PO DAILY@1800 [facility] Last Admin: 02/19/21 18:26 Dose: 2.5 mg Documented by: Time Spent With Patient Time: Total time spent is greater than 50% in coordination of care (as documented) at patient's floor/unit and/or counseling patient: Time with patient: less than 15 minutes Quality Stroke Does the patient have a stroke diagnosis?: No VTE Prior VTE?: No VTE Risk Level:: Surgical - very high VTE Device Contraindication: N/A - Device Ordered VTE Drug Contraindication: N/A - Med Ordered
--- NOTE | 2021-02-20 08:29 | PC.NURSE ---
Pt was working with physical therapy, sitting on the toilet trying to void, became diaphretic, pale. Dr. Christina in with patient, VS Pulse 80, BP 119/76, O2 sat on RA 93%. BS 177. Pt ambulated with walker and assistance of 2 to recliner. Pt is no longer diaphretic. Feeling better awaiting breakfast.
[2021-02-20 08:34] LABS: Glucose, Whole Blood 171 mg/dL (60-115)
[2021-02-20] MEDS: oxyCODONE HCl Immed Release 5 MG TABLET PO ×3 (08:34→19:20)
[2021-02-20] MEDS: oxyCODONE HCl ER 10 MG TAB.ER.12H PO ×2 (08:34→21:00)
[2021-02-20] MEDS: Metoprolol Succinate ER 25 MG TAB.ER.24H PO (08:34)
[2021-02-20] MEDS: 0.9 % Sodium Chloride Flush 3 ML SYRINGE IVFLUSH (08:34)
[2021-02-20] MEDS: Docusate Sodium 100 MG CAPSULE PO ×2 (08:34→21:00)
[2021-02-20] MEDS: Celecoxib 200 MG CAPSULE PO ×2 (08:34→21:00)
[2021-02-20 08:42] VITALS: BP 104/56; PULSE 73; O2SAT 93
--- NOTE | 2021-02-20 09:13 | P.PNIM_ITS ---
Subjective Subjective Date of Service: 02/20/21 Interval History: cc: right knee pain interval history: lightheaded episode when trying to urinate, became diaphoretic, nauseous, resolved several minutes after sitting back down. Cardiovascular Cardiovascular: Reports no additional cardiovascular complaints Respiratory Respiratory: Reports no additional respiratory complaints Physical Exam Vital Signs: Vital Signs: Last Vital Signs Temp 97.8 F 02/20/21 07:53 Pulse 73 02/20/21 08:42 Resp 18 02/20/21 07:53 BP 104/56 L 02/20/21 08:42 Pulse Ox 93 02/20/21 08:42 Body Mass Index 25.0 Const General:?cooperative, healthy appearing and no acute distress Resp Effort & Inspection:?normal respiratory effort and able to speak in complete sentences Cardio Rate:?regular rate Peripheral pulses:?Peripheral pulses 2+ throughout GI Palpation (GI):?Soft to palpation Skin General skin exam:?no rashes or lesions noted Extrem Other:?Bandage clean dry and intact? No erythema or joint effusion.? Calf supple nontender.? Neurovascularly intact. Objective Data Active Medications Acetaminophen (Acetaminophen 325 Mg Tablet) 650 mg PO Q6H PRN PRN Reason: Pain, Mild (Pain Scale 1-3) Celecoxib (Celecoxib 200 Mg Capsule) 200 mg PO BID [facility] Last Admin: 02/20/21 08:34 Dose: 200 mg Documented by: AGATA Docusate Sodium (Docusate Sodium 100 Mg Capsule) 100 mg PO BID [facility] Last Admin: 02/20/21 08:34 Dose: 100 mg Documented by: AGATA Hydromorphone HCl (Hydromorphone Hcl 0.5 Mg/0.5 Ml Syringe) 0.25 mg IVPUSH Q4H PRN; Protocol PRN Reason: Pain, Severe (Pain Scale 7-10) Last Admin: 02/20/21 06:54 Dose: 0.25 mg Documented by: GHADA Dextrose/Sodium Chloride (D51/2ns) 1,000 mls @ 80 mls/hr IVCONT .[id number] [facility] Last Admin: 02/20/21 04:45 Dose: 80 mls/hr Documented by: GHADA Vancomycin HCl 1,250 mg/ (Sodium Chloride) 250 mls @ 166.667 mls/hr IV Q24H [facility] Metoprolol Succinate (Metoprolol Succinate Er 25 Mg Tab.Er.24h) 25 mg PO DAILY [facility]; Protocol Last Admin: 02/20/21 08:34 Dose: 25 mg Documented by: AGATA Ondansetron HCl (Ondansetron Hcl 4 Mg/2 Ml Vial) 4 mg IVPUSH Q8H PRN PRN Reason: Nausea and Vomiting Oxycodone HCl (Oxycodone Hcl Immed Release 5 Mg Tablet) 5 mg PO Q4H PRN PRN Reason: Pain, Moderate (Pain Scale 4-6 Last Admin: 02/20/21 08:34 Dose: 5 mg Documented by: AGATA Oxycodone HCl (Oxycodone Hcl Er 10 Mg Tab.Er.12h) 10 mg PO BID [facility] Last Admin: 02/20/21 08:34 Dose: 10 mg Documented by: AGATA Pharmacy Consult (Consult Rx Vancomycin Dosing) 1 each MISCELLANE DAILY PRN PRN Reason: Consult order Sodium Chloride (0.9 % Sodium Chloride Flush 3 Ml Syringe) 3 ml IVFLUSH QSHIFT [facility] Last Admin: 02/20/21 08:34 Dose: 3 ml Documented by: AGATA Warfarin Sodium (Warfarin Sodium 2.5 Mg Tablet) 2.5 mg PO DAILY@1800 [facility] Last Admin: 02/19/21 18:26 Dose: 2.5 mg Documented by: DEVON Labs CBC & Chem 7: 02/20/21 04:32 02/20/21 04:31 Labs: Laboratory Results - last 24 hr 02/18/21 02/19/21 02/19/21 14:10 11:05 15:38 Hgb 14.0 MCV MCH MCHC RDW Plt Count MPV Immature Gran % (Auto) Neut % (Auto) Lymph % (Auto) [place] % (Auto) Eos % (Auto) Baso % (Auto) Lymph # (Auto) [place] # (Auto) Eos # (Auto) Baso # (Auto) Abs Immat Gran (auto) Absolute Neuts (auto) Absolute Nucleated RBC Nucleated RBC % (auto) PT INR Anion Gap Estim Creat Clear Calc 62.1 Estimated GFR > 60 POC Glucose Fasting Glucose Calcium Synovial Source Right knee Synovial WBC 19.205 Synovial RBC < 0.002 Synovial Neutrophils 95 Synovial Lymphocytes 3 Synovial Monocytes 2 02/20/21 02/20/21 02/20/21 04:31 04:31 04:32 Hgb 10.9 L D MCV 89.0 MCH 28.6 MCHC 32.2 RDW 13.2 Plt Count 250 MPV 10.8 Immature Gran % (Auto) 0.2 Neut % (Auto) 70.6 Lymph % (Auto) 13.5 L [place] % (Auto) 15.1 H Eos % (Auto) 0.2 Baso % (Auto) 0.4 Lymph # (Auto) 1.3 [place] # (Auto) 1.4 H Eos # (Auto) 0.0 Baso # (Auto) 0.0 Abs Immat Gran (auto) 0.02 Absolute Neuts (auto) 6.6 Absolute Nucleated RBC 0.000 Nucleated RBC % (auto) 0.0 PT 14.9 H INR 1.3 H Anion Gap 12 Estim Creat Clear Calc 62.8 Estimated GFR > 60 POC Glucose Fasting Glucose 141 H Calcium 7.9 L D Synovial Source Synovial WBC Synovial RBC Synovial Neutrophils Synovial Lymphocytes Synovial Monocytes 02/20/21 08:27 Hgb MCV MCH MCHC RDW Plt Count MPV Immature Gran % (Auto) Neut % (Auto) Lymph % (Auto) [place] % (Auto) Eos % (Auto) Baso % (Auto) Lymph # (Auto) [place] # (Auto) Eos # (Auto) Baso # (Auto) Abs Immat Gran (auto) Absolute Neuts (auto) Absolute Nucleated RBC Nucleated RBC % (auto) PT INR Anion Gap Estim Creat Clear Calc Estimated GFR POC Glucose 171 H Fasting Glucose Calcium Synovial Source Synovial WBC Synovial RBC Synovial Neutrophils Synovial Lymphocytes Synovial Monocytes Microbiology Microbiology Results: Microbiology 02/19/21 11:14 Gram Stain - Final Knee,Right 02/19/21 11:14 Gram Stain - Final Knee,Right 02/19/21 11:05 Gram Stain - Final Knee,Right 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 with presence of antibiotic-impregnated cement spacer: Status: Acute (2) PAF (paroxysmal atrial fibrillation): Status: Acute Assessment and Plan: 75M presented with 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
--- NOTE | 2021-02-20 09:56 | MHC.CM.PN ---
PATIENT LIVES WITH HIS /NEW HCP (COPY UPLOADED INTO [employer] AND IN CHART. HE IS AWARE THAT PHYSICAL THERAPY IS RECOMMENDING HOME WITH P.T. SERVICES. HE ASKS FOR A REFERRAL TO [facility], NOW PLACED. CASE MANAGEMENT FOLLOWING. PATIENT HAS BEEN FULLY VACCINATED AGAINST COVID-19 WITH MODERNA, ALTHOUGH HE CANNOT RECALL THE DATES OF HIS VACCINATION SERIES. IMM 02/20 IN CHART
--- NOTE | 2021-02-20 11:14 | HO.POSTANES ---
Post Anesthesia Evaluation Post Anesthesia Evaluation Vital Signs: Vital Signs Temp Pulse Resp BP Pulse Ox 02/20/21 08:42 73 104/56 L 93 02/20/21 07:53 97.8 F 73 18 104/56 L 93 02/20/21 03:54 97.8 F 67 17 109/64 93 02/19/21 23:54 97.8 F 70 17 113/61 95 Anesthesia: Nerve Block and General Mental Status: Awake Pain Control: Satisfactory Nausea/Vomiting: None Hydration: Adequate Anesthesia-Related Issues: No Anes. Related Issues Comments: near syncopal episode secondary to most likely pain meds
--- NOTE | 2021-02-20 13:00 | P.PICC_ITS ---
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 Following completion of [place] Protocol the skin and soft tissues were anesthetized with 1% Lidocaine plain. Using ultrasound guidance, BASILIC vein access was obtained IN SINGLE ATTEMPT BY THIS RN. Over an 0.018 wire through peel-away sheath, a 4-URUGUAYAN, SINGLE LUMEN, PASV PICC line was positioned. Catheter length is 37 CM internal length, 1 CM external length, for a total trimmed length of 38 CM. The procedure was performed in [facility]. Tip verification was performed by Joseluis Edwards with [place] 3CG. Tip located in SVC. Ultrasound was used to document vein patency and for needle entry. A formal ultrasound picture and cardiac rhythm strip was recorded. [employer] [employer] has released the line for use and it is currently dressed with a StatLock, Tegaderm, and CHG disc. Verification has been performed for blood return and line patency. Arm Circumference: 29 CM Equipment: [employer] POWERPICC SOLO Catheter Type: SINGLE LUMEN, PASV, 4-URUGUAYAN Lot #: [id number]
[2021-02-20] MEDS: Acetaminophen 325 MG TABLET 650 MG PO (13:45)
[2021-02-20] MEDS: 0.9 % Sodium Chloride Flush 10 ML SYRINGE 5 ML IVFLUSH (13:46)
[2021-02-20 15:31] VITALS: BP 94/53; PULSE 65; RESP 16; TEMP 36.2; O2SAT 97
[2021-02-20] MEDS: vancomycin HCL 1,250 MG in 0.9 % Sodium Chloride 250 ML 166.67 MG IV (19:19)
[2021-02-20] MEDS: Warfarin Sodium 2.5 MG TABLET PO (19:20)
[2021-02-20 19:26] VITALS: BP 124/57; PULSE 66; RESP 16; TEMP 36.6; O2SAT 94
[2021-02-21] VITALS (12 sets, daily range): BP systolic 97–118; BP diastolic 50–68; PULSE 60–71; RESP 16–18; TEMP 36.1–36.7; O2SAT 93–97
[2021-02-21 05:07] LABS: Hematocrit 34.3 % (42-52); Hemoglobin 10.1 g/dl (14.0-18.0); Mean Corpuscular HGB Conc 29.4 g/dl (31.0-36.0); Mean Corpuscular Hemoglobin 28.5 pg (27.0-33.0); Mean Corpuscular Volume 96.6 fL (80-98); Mean Platelet Volume 10.9 fL (9.4-12.4); Platelet Count 193 X10*3/uL (160-400); Red Blood Count 3.55 X10*6/uL (4.60-5.80); Red Cell Distribution Width 13.2 % (11.0-16.0)
[2021-02-21 05:17] LABS: Anion Gap 12 (12-20); Blood Urea Nitrogen 20 mg/dL (9-16); Calcium 7.7 mg/dL (8.4-10.2); Carbon Dioxide 18 mmol/L (22-29); Chloride 110 mmol/L (96-108); Creatinine Clr Calc Pharmacy 52.5; Estimated Glomerular Filt Rate > 60; Glucose Fasting 107 mg/dL (60-99); Potassium 4.2 mmol/L (3.3-5.1); Sodium 136 mmol/L (135-145)
[2021-02-21 07:48] LABS: INTERNATIONAL NORM RATIO 1.6 (0.9-1.1); Prothrombin Time 18.4 SEC (9.9-13.0)
[2021-02-21] MEDS: Metoprolol Succinate ER 25 MG TAB.ER.24H PO (09:04)
[2021-02-21] MEDS: Celecoxib 200 MG CAPSULE PO ×2 (09:04→22:16)
[2021-02-21] MEDS: Docusate Sodium 100 MG CAPSULE PO ×2 (09:04→22:16)
[2021-02-21] MEDS: oxyCODONE HCl ER 10 MG TAB.ER.12H PO ×2 (09:04→22:16)
--- NOTE | 2021-02-21 09:12 | P.PNIM_ITS ---
Subjective Subjective Date of Service: 02/21/21 Interval History: cc: knee pain interval history: still feeling pain, less whoozy then yesterday, difficulty urinating, had 900cc pvr Cardiovascular Cardiovascular: Reports no additional cardiovascular complaints Respiratory Respiratory: Reports no additional respiratory complaints Physical Exam Vital Signs: Vital Signs: Last Vital Signs Temp 97.2 F 02/21/21 07:45 Pulse 68 02/21/21 09:04 Resp 18 02/21/21 07:45 BP 110/57 L 02/21/21 09:04 Pulse Ox 96 02/21/21 08:55 Body Mass Index 25.0 Const General:?cooperative, healthy appearing and no acute distress Resp Effort & Inspection:?normal respiratory effort and able to speak in complete sentences Cardio Rate:?regular rate Peripheral pulses:?Peripheral pulses 2+ throughout GI Palpation (GI):?Soft to palpation Skin General skin exam:?no rashes or lesions noted Extrem Other:?Bandage clean dry and intact? No erythema or joint effusion.? Calf supple nontender.? Neurovascularly intact. Objective Data Active Medications Acetaminophen (Acetaminophen 325 Mg Tablet) 650 mg PO Q6H PRN PRN Reason: Pain, Mild (Pain Scale 1-3) Last Admin: 02/20/21 13:45 Dose: 650 mg Documented by: AGATA Celecoxib (Celecoxib 200 Mg Capsule) 200 mg PO BID [facility] Last Admin: 02/21/21 09:04 Dose: 200 mg Documented by: PAT Docusate Sodium (Docusate Sodium 100 Mg Capsule) 100 mg PO BID [facility] Last Admin: 02/21/21 09:04 Dose: 100 mg Documented by: PAT Hydromorphone HCl (Hydromorphone Hcl 0.5 Mg/0.5 Ml Syringe) 0.25 mg IVPUSH Q4H PRN; Protocol PRN Reason: Pain, Severe (Pain Scale 7-10) Last Admin: 02/20/21 06:54 Dose: 0.25 mg Documented by: GHADA Dextrose/Sodium Chloride (D51/2ns) 1,000 mls @ 80 mls/hr IVCONT .[id number] [facility] Last Admin: 02/21/21 00:00 Dose: 80 mls/hr Documented by: MINISTERIO Vancomycin HCl 1,250 mg/ (Sodium Chloride) 250 mls @ 166.667 mls/hr IV Q24H [facility] Last Infusion: 02/20/21 20:58 Dose: 0 mls/hr Documented by: DEVON Metoprolol Succinate (Metoprolol Succinate Er 25 Mg Tab.Er.24h) 25 mg PO DAILY [facility]; Protocol Last Admin: 02/21/21 09:04 Dose: 25 mg Documented by: PAT Ondansetron HCl (Ondansetron Hcl 4 Mg/2 Ml Vial) 4 mg IVPUSH Q8H PRN PRN Reason: Nausea and Vomiting Oxycodone HCl (Oxycodone Hcl Immed Release 5 Mg Tablet) 5 mg PO Q4H PRN PRN Reason: Pain, Moderate (Pain Scale 4-6 Last Admin: 02/20/21 19:20 Dose: 5 mg Documented by: DEVON Oxycodone HCl (Oxycodone Hcl Er 10 Mg Tab.Er.12h) 10 mg PO BID [facility] Last Admin: 02/21/21 09:04 Dose: 10 mg Documented by: PAT Pharmacy Consult (Consult Rx Vancomycin Dosing) 1 each MISCELLANE DAILY PRN PRN Reason: Consult order Sodium Chloride (0.9 % Sodium Chloride Flush 3 Ml Syringe) 3 ml IVFLUSH QSHIFT [facility] Last Admin: 02/21/21 07:40 Dose: Not Given Documented by: PAT Non-Admin Reason: IV Running Warfarin Sodium (Warfarin Sodium 2.5 Mg Tablet) 2.5 mg PO DAILY@1800 [facility] Last Admin: 02/20/21 19:20 Dose: 2.5 mg Documented by: DEOVN Labs CBC & Chem 7: 02/21/21 04:43 02/21/21 04:42 Labs: Laboratory Results - last 24 hr 02/21/21 02/21/21 02/21/21 04:42 04:43 07:27 MCV 96.6 D MCH 28.5 MCHC 29.4 L RDW 13.2 Plt Count 193 MPV 10.9 Absolute Nucleated RBC 0.000 Nucleated RBC % (auto) 0.0 PT 18.4 H D INR 1.6 H Anion Gap 12 Estim Creat Clear Calc 52.5 Estimated GFR > 60 Fasting Glucose 107 H Calcium 7.7 L Microbiology Microbiology Results: Microbiology 02/19/21 11:05 Gram Stain - Final Knee,Right Routine Culture - Final No growth after 2 days Anaerobic Culture - Preliminary No growth to date. 02/19/21 11:14 Gram Stain - Final Knee,Right Routine Culture - Final No growth after 2 days Anaerobic Culture - Preliminary No growth to date. 02/19/21 11:14 Gram Stain - Final Knee,Right Routine Culture - Final No growth after 2 days Anaerobic Culture - Preliminary No growth to date. 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
--- NOTE | 2021-02-21 09:46 | PM.PNORT ---
Subjective Subjective Date of Service: 02/21/21 Interval history: Postop day 2 status post resection right total knee with placement of antibiotic spacer No overnight events Patient is having some urinary retention Tolerating right knee pain well he has been working with physical therapy and is resting in a chair. Physical Exam Vital Signs: Vital Signs: Last Vital Signs Temp 97.2 F 02/21/21 07:45 Pulse 68 02/21/21 09:28 Resp 18 02/21/21 07:45 BP 110/57 L 02/21/21 09:28 Pulse Ox 96 02/21/21 08:55 Body Mass Index 25.0 Const: General: cooperative, healthy appearing and no acute distress Resp: Effort & Inspection: normal respiratory effort and able to speak in complete sentences Cardio: Rate: regular rate Peripheral pulses: Peripheral pulses 2+ throughout GI: Palpation (GI): Soft to palpation Skin: General skin exam: no rashes or lesions noted Extrem: Other: Bandage intact No erythema or joint effusion. Calf supple nontender. Neurovascularly intact. 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 with presence of antibiotic-impregnated cement spacer: Status: Acute Assessment and Plan: Continue the management Continue Coumadin with INR goal of 2-3 Monitor Vanco trough Started on doxazosin and consult Urology Dispo planning Fall Risk Details Current Medications: Current Medications Acetaminophen (Acetaminophen 325 Mg Tablet) 650 mg PO Q6H PRN PRN Reason: Pain, Mild (Pain Scale 1-3) Last Admin: 02/20/21 13:45 Dose: 650 mg Documented by: Celecoxib (Celecoxib 200 Mg Capsule) 200 mg PO BID [facility] Last Admin: 02/21/21 09:04 Dose: 200 mg Documented by: Docusate Sodium (Docusate Sodium 100 Mg Capsule) 100 mg PO BID [facility] Last Admin: 02/21/21 09:04 Dose: 100 mg Documented by: Doxazosin Mesylate (Doxazosin Mesylate 2 Mg Tablet) 8 mg PO DAILY [facility]; Protocol Hydromorphone HCl (Hydromorphone Hcl 0.5 Mg/0.5 Ml Syringe) 0.25 mg IVPUSH Q4H PRN; Protocol PRN Reason: Pain, Severe (Pain Scale 7-10) Last Admin: 02/20/21 06:54 Dose: 0.25 mg Documented by: Dextrose/Sodium Chloride (D51/2ns) 1,000 mls @ 80 mls/hr IVCONT .[id number] [facility] Last Admin: 02/21/21 00:00 Dose: 80 mls/hr Documented by: Vancomycin HCl 1,250 mg/ (Sodium Chloride) 250 mls @ 166.667 mls/hr IV Q24H [facility] Last Infusion: 02/20/21 20:58 Dose: Infused Documented by: Metoprolol Succinate (Metoprolol Succinate Er 25 Mg Tab.Er.24h) 25 mg PO DAILY [facility]; Protocol Last Admin: 02/21/21 09:04 Dose: 25 mg Documented by: Ondansetron HCl (Ondansetron Hcl 4 Mg/2 Ml Vial) 4 mg IVPUSH Q8H PRN PRN Reason: Nausea and Vomiting Oxycodone HCl (Oxycodone Hcl Immed Release 5 Mg Tablet) 5 mg PO Q4H PRN PRN Reason: Pain, Moderate (Pain Scale 4-6 Last Admin: 02/20/21 19:20 Dose: 5 mg Documented by: Oxycodone HCl (Oxycodone Hcl Er 10 Mg Tab.Er.12h) 10 mg PO BID [facility] Last Admin: 02/21/21 09:04 Dose: 10 mg Documented by: Pharmacy Consult (Consult Rx Vancomycin Dosing) 1 each MISCELLANE DAILY PRN PRN Reason: Consult order Sodium Chloride (0.9 % Sodium Chloride Flush 3 Ml Syringe) 3 ml IVFLUSH QSHIFT [facility] Last Admin: 02/21/21 07:40 Dose: Not Given Documented by: Warfarin Sodium (Warfarin Sodium 2.5 Mg Tablet) 2.5 mg PO DAILY@1800 [facility] Last Admin: 02/20/21 19:20 Dose: 2.5 mg Documented by: Time Spent With Patient Time: Total time spent is greater than 50% in coordination of care (as documented) at patient's floor/unit and/or counseling patient: Time with patient: less than 15 minutes Quality Stroke Does the patient have a stroke diagnosis?: No VTE Prior VTE?: No VTE Risk Level:: Surgical - very high VTE Device Contraindication: N/A - Device Ordered VTE Drug Contraindication: N/A - Med Ordered
[2021-02-21] MEDS: Doxazosin Mesylate 2 MG TABLET 8 MG PO (09:54)
[2021-02-21 10:40] LABS: Vancomycin Trough 14.1 mcg/mL (10.0-20.0)
--- NOTE | 2021-02-21 11:47 | MHC.CM.PN ---
[facility] UNABLE TO OFFER SERVICES. [facility] REFERRAL SEARCH PLACED. [facility] WILL BE IN TODAY TO TEACH
--- NOTE | 2021-02-21 13:15 | MHC.CM.PN ---
[facility] IS OFFERING SERVICES. [facility] AWARE. CURRENTLY AWAITING ID CONSULT AND DOSAGE
[2021-02-21] MEDS: Dextrose 5 % and 0.45 % NaCl 1,000 ML 80 ML IVCONT ×2 (14:48)
[2021-02-21] MEDS: Warfarin Sodium 2.5 MG TABLET PO (17:09)
[2021-02-21] MEDS: 0.9 % Sodium Chloride Flush 3 ML SYRINGE IVFLUSH ×2 (17:09→22:16)
[2021-02-21] MEDS: vancomycin HCL 1,250 MG in 0.9 % Sodium Chloride 250 ML 166.67 MG IV (17:09)
[2021-02-22] VITALS: BP 92/48; PULSE 68; RESP 15; TEMP 36.4; O2SAT 94
--- NOTE | 2021-02-22 01:41 | PC.NURSE ---
02/21/211999 amb pt to bathroom.voided small amt bladder scanned for 308 ml.st cathed for 600cc clear yellow urine at 2230.
[2021-02-22] MEDS: Dextrose 5 % and 0.45 % NaCl 1,000 ML 80 ML IVCONT (02:43)
[2021-02-22 03:18] VITALS: BP 94/48; PULSE 66; RESP 15; TEMP 36.6; O2SAT 95
[2021-02-22 06:06] LABS: MANUAL DIFF FLAG NO
[2021-02-22 06:12] LABS: Basophils Percent Auto 0.5 % (0-2); Eosinophils Absolute Auto 0.2 X10*3/uL (0.0-0.4); Hematocrit 25.6 % (42-52); Hemoglobin 8.2 g/dl (14.0-18.0); Imm Gran Abs Auto 0.02 X10*3/uL (0.00-0.03); Imm Gran Pct Auto 0.4 % (0.0-0.4); Lymphocytes Absolute Auto 0.9 X10*3/uL (1.2-4.9); Lymphocytes Percent Auto 15.6 % (20-40); Mean Corpuscular Hemoglobin 28.6 pg (27.0-33.0); Mean Corpuscular Volume 89.2 fL (80-98); Mean Platelet Volume 11.3 fL (9.4-12.4); Monocytes Absolute Auto 0.9 X10*3/uL (0.1-1.2); Monocytes Percent Auto 14.9 % (2-11); Neutrophils Absolute Auto 3.7 X10*3/uL (2.0-8.3); Neutrophils Percent Auto 64.6 % (45-73); Platelet Count 175 X10*3/uL (160-400); Red Blood Count 2.87 X10*6/uL (4.60-5.80); Red Cell Distribution Width 13.1 % (11.0-16.0); White Blood Count 5.7 X10*3/uL (4.8-10.8)
[2021-02-22] MEDS: oxyCODONE HCl Immed Release 5 MG TABLET PO (06:41)
--- NOTE | 2021-02-22 06:51 | PC.NURSE ---
bladder scanned pt for 700cc.amb pt to br voided small amt.bladder scanned again for 488cc.st.cathed for 600cc clear yellow urine.
[2021-02-22 07:05] LABS: Anion Gap 9 (12-20); Blood Urea Nitrogen 17 mg/dL (9-16); Calcium 7.6 mg/dL (8.4-10.2); Carbon Dioxide 24 mmol/L (22-29); Chloride 108 mmol/L (96-108); Creatinine Clr Calc Pharmacy 60.8; Estimated Glomerular Filt Rate > 60; Glucose Fasting 107 mg/dL (60-99); Potassium 3.7 mmol/L (3.3-5.1); Sodium 137 mmol/L (135-145)
[2021-02-22 08:00] VITALS: BP 118/56; PULSE 60; RESP 18; TEMP 36.2; O2SAT 96
[2021-02-22] MEDS: Metoprolol Succinate ER 25 MG TAB.ER.24H PO (08:15)
[2021-02-22] MEDS: oxyCODONE HCl ER 10 MG TAB.ER.12H PO (08:15)
[2021-02-22] MEDS: Doxazosin Mesylate 2 MG TABLET 8 MG PO (08:15)
[2021-02-22] MEDS: Docusate Sodium 100 MG CAPSULE PO (08:16)
[2021-02-22] MEDS: Celecoxib 200 MG CAPSULE PO (08:16)
[2021-02-22 08:25] VITALS: BP 118/56; PULSE 60; O2SAT 96
--- NOTE | 2021-02-22 08:29 | HO.PM.IMPN ---
Subjective Subjective Date of Service: 02/22/21 Interval History: cc: knee pain continues to have urinary retention Cardiovascular Cardiovascular: Reports no additional cardiovascular complaints Respiratory Respiratory: Reports no additional respiratory complaints Physical Exam Vital Signs: Vital Signs: Last Vital Signs Temp 97.1 F 02/22/21 08:00 Pulse 60 02/22/21 08:25 Resp 18 02/22/21 08:00 BP 118/56 L 02/22/21 08:25 Pulse Ox 96 02/22/21 08:25 Body Mass Index 25.0 Const General:?cooperative, healthy appearing and no acute distress Resp Effort & Inspection:?normal respiratory effort and able to speak in complete sentences Cardio Rate:?regular rate Peripheral pulses:?Peripheral pulses 2+ throughout GI Palpation (GI):?Soft to palpation Skin General skin exam:?no rashes or lesions noted Extrem Other:?Bandage intact No erythema or joint effusion.? Calf supple nontender.? Neurovascularly intact. Objective Data Active Medications Acetaminophen (Acetaminophen 325 Mg Tablet) 650 mg PO Q6H PRN PRN Reason: Pain, Mild (Pain Scale 1-3) Last Admin: 02/20/21 13:45 Dose: 650 mg Documented by: AGATA Celecoxib (Celecoxib 200 Mg Capsule) 200 mg PO BID [facility] Last Admin: 02/22/21 08:16 Dose: 200 mg Documented by: AGATA Docusate Sodium (Docusate Sodium 100 Mg Capsule) 100 mg PO BID [facility] Last Admin: 02/22/21 08:16 Dose: 100 mg Documented by: AGATA Doxazosin Mesylate (Doxazosin Mesylate 2 Mg Tablet) 8 mg PO DAILY [facility]; Protocol Last Admin: 02/22/21 08:15 Dose: 8 mg Documented by: AGATA Hydromorphone HCl (Hydromorphone Hcl 0.5 Mg/0.5 Ml Syringe) 0.25 mg IVPUSH Q4H PRN; Protocol PRN Reason: Pain, Severe (Pain Scale 7-10) Last Admin: 02/20/21 06:54 Dose: 0.25 mg Documented by: GHADA Dextrose/Sodium Chloride (D51/2ns) 1,000 mls @ 80 mls/hr IVCONT .[id number] [facility] Last Admin: 02/22/21 02:43 Dose: 80 mls/hr Documented by: SHAHIDA Vancomycin HCl 1,250 mg/ (Sodium Chloride) 250 mls @ 166.667 mls/hr IV Q24H [facility] Last Infusion: 02/21/21 19:58 Dose: 0 mls/hr Documented by: SHHAIDA Metoprolol Succinate (Metoprolol Succinate Er 25 Mg Tab.Er.24h) 25 mg PO DAILY [facility]; Protocol Last Admin: 02/22/21 08:15 Dose: 25 mg Documented by: AGATA Ondansetron HCl (Ondansetron Hcl 4 Mg/2 Ml Vial) 4 mg IVPUSH Q8H PRN PRN Reason: Nausea and Vomiting Oxycodone HCl (Oxycodone Hcl Immed Release 5 Mg Tablet) 5 mg PO Q4H PRN PRN Reason: Pain, Moderate (Pain Scale 4-6 Last Admin: 02/22/21 06:41 Dose: 5 mg Documented by: SHAHIDA Oxycodone HCl (Oxycodone Hcl Er 10 Mg Tab.Er.12h) 10 mg PO BID [facility] Last Admin: 02/22/21 08:15 Dose: 10 mg Documented by: AGATA Pharmacy Consult (Consult Rx Vancomycin Dosing) 1 each MISCELLANE DAILY PRN PRN Reason: Consult order Sodium Chloride (0.9 % Sodium Chloride Flush 3 Ml Syringe) 3 ml IVFLUSH QSHIFT [facility] Last Admin: 02/22/21 08:15 Dose: Not Given Documented by: AGATA Non-Admin Reason: IV Running Warfarin Sodium (Warfarin Sodium 2.5 Mg Tablet) 2.5 mg PO DAILY@1800 [facility] Last Admin: 02/21/21 17:09 Dose: 2.5 mg Documented by: PAT Labs CBC & Chem 7: 02/22/21 05:26 02/22/21 05:26 Labs: Laboratory Results - last 24 hr 02/21/21 02/22/21 02/22/21 09:18 05:26 05:26 MCV 89.2 D MCH 28.6 MCHC 32.0 RDW 13.1 Plt Count 175 MPV 11.3 Immature Gran % (Auto) 0.4 Neut % (Auto) 64.6 Lymph % (Auto) 15.6 L [place] % (Auto) 14.9 H Eos % (Auto) 4.0 Baso % (Auto) 0.5 Lymph # (Auto) 0.9 L [place] # (Auto) 0.9 Eos # (Auto) 0.2 Baso # (Auto) 0.0 Abs Immat Gran (auto) 0.02 Absolute Neuts (auto) 3.7 Absolute Nucleated RBC 0.000 Nucleated RBC % (auto) 0.0 Anion Gap 9 L Estim Creat Clear Calc 60.8 Estimated GFR > 60 Fasting Glucose 107 H Calcium 7.6 L Vancomycin Trough 14.1 Microbiology Microbiology Results: Microbiology 02/19/21 11:05 Gram Stain - Final Knee,Right Routine Culture - Final No growth after 2 days Anaerobic Culture - Preliminary No growth to date. 02/19/21 11:14 Gram Stain - Final Knee,Right Routine Culture - Final No growth after 2 days Anaerobic Culture - Preliminary No growth to date. 02/19/21 11:14 Gram Stain - Final Knee,Right Routine Culture - Final No growth after 2 days Anaerobic Culture - Preliminary No growth to date. 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
[2021-02-22 08:30] LABS: INTERNATIONAL NORM RATIO 1.6 (0.9-1.1); Prothrombin Time 18.8 SEC (9.9-13.0)
--- NOTE | 2021-02-22 08:44 | P.DS_ITS ---
DS: Providers Provider Date of Service: 02/22/21 Date of admission: 02/19/21 07:47 Primary care physician: Glenny Henderson PA-C Consults: 02/19/21 14:59 Consult to Hospitalist Routine Consulting Provider: Hospitalist Reason For Exam: post op medical management Consult to Infectious Diseases Routine Consulting Provider: Bhumika Palacios Reason for consultation: RT TKA infection 02/21/21 09:10 Consult to Urology Routine Consulting Provider: Baldemar Moreno Reason for consultation: urinary retention 02/21/21 09:14 Consult to Urology Routine Consulting Provider: Baldemar Moreno Reason for consultation: urinary retention DS: Diagnosis Discharge Diagnosis (1) 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 He had a Synovasure aspiration which resulted in positive bacteria growth.? He was then booked for right knee resection arthroplasty with placement of antibiotic spacer The patient underwent a successful arthroplasty, was transferred to PACU and then to the floor to recover. During their stay, their vitals were stable, afebrile at 97.1. Labs were unremarkable, H/H 8.2/25.6. POD 1 resumed his Coumadin, INR on discharge 1.6 they also received services twice a day. Prior to discharge, their dressing was changed, incision clean dry and intact, new Aquacel dressing applied and the plan was to be discharged home with [facility]NA services Urology consult placed while patient was in house postop day 3-due to urinary retention. Recommended sending home with catheter and will follow up with his urologist outpatient. PICC line instructions * Daily BUN/creatinine * Check Vanco trough levels after 4th dose * Keep Vanco trough level between 10 and 20 * Flush PICC line with 10 cc of normal saline 3 times a day * Routine discharge flushing with 10 mL of normal saline after blood specimen withdrawal, medication administration or post transfusion flushing Time Spent with Patient Time attestation: Total time spent providing and/or coordinating discharge services: Discharge coordination time: Less than 30 minutes Quality: Stroke Does the patient have a stroke diagnosis?: No Physical Exam Vital Signs: Vital Signs: Last Vital Signs Temp 97.1 F 02/22/21 08:00 Pulse 60 02/22/21 08:25 Resp 18 02/22/21 08:00 BP 118/56 L 02/22/21 08:25 Pulse Ox 96 02/22/21 08:25 Body Mass Index 25.0 Const: General: cooperative, healthy appearing and no acute distress Resp: Effort & Inspection: normal respiratory effort and able to speak in complete sentences Cardio: Rate: regular rate Peripheral pulses: Peripheral pulses 2+ throughout GI: Palpation (GI): Soft to palpation Skin: General skin exam: no rashes or lesions noted Extrem: Other: incision clean dry and intact. Leann intact. No erythema or joint effusion. Calf supple nontender. Neurovascularly intact. DS: Data Data Completed and Pending Labs on day of discharge: Laboratory Results - last 24 hr 02/21/21 02/22/21 02/22/21 09:18 05:26 05:26 WBC 5.7 RBC 2.87 L Hgb 8.2 L Hct 25.6 L D MCV 89.2 D MCH 28.6 MCHC 32.0 RDW 13.1 Plt Count 175 MPV 11.3 Immature Gran % (Auto) 0.4 Neut % (Auto) 64.6 Lymph % (Auto) 15.6 L [place] % (Auto) 14.9 H Eos % (Auto) 4.0 Baso % (Auto) 0.5 Lymph # (Auto) 0.9 L [place] # (Auto) 0.9 Eos # (Auto) 0.2 Baso # (Auto) 0.0 Abs Immat Gran (auto) 0.02 Absolute Neuts (auto) 3.7 Absolute Nucleated RBC 0.000 Nucleated RBC % (auto) 0.0 PT INR Sodium 137 Potassium 3.7 Chloride 108 Carbon Dioxide 24 Anion Gap 9 L BUN 17 H Creatinine 0.95 Estim Creat Clear Calc 60.8 Estimated GFR > 60 Fasting Glucose 107 H Calcium 7.6 L Vancomycin Trough 14.1 02/22/21 08:12 WBC RBC Hgb Hct MCV MCH MCHC RDW Plt Count MPV Immature Gran % (Auto) Neut % (Auto) Lymph % (Auto) [place] % (Auto) Eos % (Auto) Baso % (Auto) Lymph # (Auto) [place] # (Auto) Eos # (Auto) Baso # (Auto) Abs Immat Gran (auto) Absolute Neuts (auto) Absolute Nucleated RBC Nucleated RBC % (auto) PT 18.8 H INR 1.6 H Sodium Potassium Chloride Carbon Dioxide Anion Gap BUN Creatinine Estim Creat Clear Calc Estimated GFR Fasting Glucose Calcium Vancomycin Trough Preliminary micro results at discharge 02/19/21 11:05 Anaerobic Culture - Preliminary Knee,Right No growth to date. 02/19/21 11:14 Anaerobic Culture - Preliminary Knee,Right No growth to date. 02/19/21 11:14 Anaerobic Culture - Preliminary Knee,Right No growth to date. Discharge Plan Discharge Patient Disposition: Home Health Service Discharge Diagnosis: Resection RT total knee with placement of abx spacer Referrals: [facility] [Outside] - 1 Week Devante Rinaldi PA-C [Physician Embossing Unit Operator] - 1 Week (03/06/21 11:30 [facility] Devante Rinaldi PA-C) Discharge Medications: New vancomycin in 0.9 % sodium chl 1.25 gram/250 mL solution 1.25 g IV Q12H 42 Days Qty: 18623 RF: 0 acetaminophen 325 mg Tablet 650 mg PO Q6H PRN (Reason: Pain, Mild (Pain Scale 1-3)) 30 Days Qty: 240 RF: 0 doxazosin 2 mg Tablet 8 mg PO DAILY 30 Days Qty: 120 RF: 0 oxycodone 5 mg Tablet 5 mg PO Q4H PRN (Reason: Pain, Moderate (Pain Scale 4-6) 7 Days Qty: 42 RF: 0 Continued metoprolol succinate 25 mg tablet extended release 24 hr 25 mg PO DAILY Qty: 30 RF: 5 cholecalciferol (vitamin D3) [Vitamin D3] 25 mcg (1,000 unit) Capsule 25 mcg PO DAILY RF: 0 pravastatin 80 mg tablet 80 mg PO BEDTIME RF: 0 warfarin 2.5 mg tablet 2.5 mg PO DAILY RF: 0 latanoprost 0.005 % drops 1 drp ophthalmic (eye) BEDTIME RF: 0 brimonidine 0.2 % drops 1 drp ophthalmic (eye) BID RF: 0 dorzolamide-timolol 22.3-6.8 mg/mL drops 1 drp ophthalmic (eye) BID RF: 0 Discharge Orders: Discharge Order (Routine); Ordered 02/22/21 Ordered By: Devante Rinaldi Diet: regular diet Activity on Discharge: Use cane or walker Stand Alone Forms: Patient Portal Discharge page Care Plan Goals: Restore function of joint Health Concerns: none Plan of Treatment: Physical Therapy Pain management DVT prophylaxis Assessment: * Physical Therapy for Total knee arthroplasty: gait training, ROM 0-12, quad strength * Limit stair climbing * No showering, no tub bath-keep dressing clean, dry and intact * No driving x6 weeks * Continue Coumadin with INR goal of 2-3 * Daily INR until therapeutic * Follow up with [facility] in 2 weeks * Daily BUN/creatinine * Check Vanco trough levels after 4th dose * Keep Vanco trough level between 10 and 20 * Flush PICC line with 10 cc of normal saline 3 times a day * Routine discharge flushing with 10 mL of normal saline after blood specimen withdrawal, medication administration or post transfusion flushing * Follow-up with urology
--- NOTE | 2021-02-22 09:28 | P.F2F_ITS ---
Service Date Service Date: 02/22/21 Encounter Date of encounter: 02/22/21 Reasons for Services Reason for penitentiary: administration of IV, SQ, or IM injection, central line care, monitoring of PT/INR, medication management and medication treatment Reason for physical therapy: home safety and mobility, therapeutic exercises, restore joint function, gait/transfer training, ADL training and energy conservation Reason for occupational therapy: home safety and mobility, therapeutic exercises, restore joint function, gait/transfer training, ADL training and energy conservation Overseeing Care: Valdez Agrawal Homebound: Leaving the home is medically contraindicated at this time without the asist of a device and/or another person due th the listed conditions above and below. Reason homebound: unsteady gait / fall risk, leg weakness, pain with ambulation, poor balance / fall risk and unable to drive Homebound supporting statement: Pt. is considered home bound due to recent surgery. Unable to drive, poor balance, poor gait mechanics. Certification: Based on the above findings, I certify that this patient is confined to the home and needs intermittent penitentiary care, physical t herapy and/or speech therapy, or continues to need occupational therapy. The patient is under my care, and I have initiated the establishment of the plan of care. The patient will be followed by a physician who will periodically review the plan of care.
--- NOTE | 2021-02-22 09:36 | MHC.CM.PN ---
PATIENT IS DISCHARGED HOME WITH [facility] FOR HOME INFUSION. [facility] IS OFFERING RN AND PT SKILLS. RN AWARE OF PLAN.
--- NOTE | 2021-02-22 10:10 | MHC.CM.PN ---
SIGNED FLUSH ORDERS INDICATE LAB DRAWS QD. PER CONVERSATION WITH DISCHARGING PA, EVERY 4TH DAY (ALONG WITH TROUGH) IS ACCEPTABLE. [facility] MADE AWARE. FLUSH ORDERS, PICC VERIFICATION, AND RX FAXED TO [phone]
[2021-02-22] MEDS: ondansetron HCL 4 MG/2 ML VIAL IVPUSH (10:21)
--- NOTE | 2021-02-22 10:35 | PM.UROCN ---
History of Present Illness Consult details Consult date: 02/22/21 Narrative: Wali is a pleasant male In hospital for removal of infected knee replacement left side Consultation called for urinary retention Has required straight cath q.8 hours for past 48 hours since procedure Has known prostate issue and is followed by urologist in [place] Recommendation for Gonzáles catheter placement with catheter plug No need for bag Empty every 3-4 hours Follow-up with [place] urologist in a week Review of Systems Constitutional: Constitutional: Denies chills and Denies fever(s) Cardiovascular: Cardiovascular: Reports no additional cardiovascular complaints and Denies syncope Respiratory: Respiratory: Denies cough Gastrointestinal: Gastrointestinal: Denies abdominal pain and Denies heartburn Genitourinary: Genitourinary: Reports as per HPI and Denies change in libido Neurologic: Denies syncope Psychiatric: Psychiatric: Denies change in libido Endocrine: Endocrine: Denies change in libido [facility] Past Medical History Medical History Abnormal gait Arthritis Atrial fibrillation Benign essential hypertension BPH (benign prostatic hyperplasia) Coronary arteriosclerosis in [place] artery Glaucoma Heart disease High cholesterol Myocardial infarct, old Raynaud phenomenon RBBB (right bundle branch block) Family History Family History Father No problems noted. Mother No problems noted. Surgical History Surgical History History of bunionectomy of left great toe History of cardiac radiofrequency ablation History of cystoscopy History of left inguinal hernia repair History of meniscectomy of right knee History of prostate surgery History of total knee replacement Social History Social History Are you a primary care transport nurse to a significant other at home: No Do you presently have visiting nurse or other home services: No Alcohol intake: never Patient Tobacco Use Status: Former Tobacco user Quit Date: 1991 Tobacco use type: Cigarette Second Hand Smoke Exposure: No service: No Current occupational status: retired Current occupation: left handed Meds Allergies Allergy/AdvReac Type Severity Reaction Status Date / Time ciprofloxacin [From CIPRO] Allergy Intermediate RASH Verified 02/11/21 12:24 Chocolate Allergy Sneezing Verified 02/18/21 13:15 milk Allergy Sneezing Verified 02/18/21 13:25 metoprolol AdvReac Severe Verified 02/18/21 13:28 Bradycardia Active Medications: Current Medications Acetaminophen (Acetaminophen 325 Mg Tablet) 650 mg PO Q6H PRN PRN Reason: Pain, Mild (Pain Scale 1-3) Last Admin: 02/20/21 13:45 Dose: 650 mg Documented by: Celecoxib (Celecoxib 200 Mg Capsule) 200 mg PO BID [facility] Last Admin: 02/22/21 08:16 Dose: 200 mg Documented by: Docusate Sodium (Docusate Sodium 100 Mg Capsule) 100 mg PO BID [facility] Last Admin: 02/22/21 08:16 Dose: 100 mg Documented by: Doxazosin Mesylate (Doxazosin Mesylate 2 Mg Tablet) 8 mg PO DAILY [facility]; Protocol Last Admin: 02/22/21 08:15 Dose: 8 mg Documented by: Hydromorphone HCl (Hydromorphone Hcl 0.5 Mg/0.5 Ml Syringe) 0.25 mg IVPUSH Q4H PRN; Protocol PRN Reason: Pain, Severe (Pain Scale 7-10) Last Admin: 02/20/21 06:54 Dose: 0.25 mg Documented by: Dextrose/Sodium Chloride (D51/2ns) 1,000 mls @ 80 mls/hr IVCONT .[id number] [facility] Last Admin: 02/22/21 02:43 Dose: 80 mls/hr Documented by: Vancomycin HCl 1,250 mg/ (Sodium Chloride) 250 mls @ 166.667 mls/hr IV Q24H [facility] Last Infusion: 02/21/21 19:58 Dose: Infused Documented by: Metoprolol Succinate (Metoprolol Succinate Er 25 Mg Tab.Er.24h) 25 mg PO DAILY [facility]; Protocol Last Admin: 02/22/21 08:15 Dose: 25 mg Documented by: Ondansetron HCl (Ondansetron Hcl 4 Mg/2 Ml Vial) 4 mg IVPUSH Q8H PRN PRN Reason: Nausea and Vomiting Last Admin: 02/22/21 10:21 Dose: 4 mg Documented by: Oxycodone HCl (Oxycodone Hcl Immed Release 5 Mg Tablet) 5 mg PO Q4H PRN PRN Reason: Pain, Moderate (Pain Scale 4-6 Last Admin: 02/22/21 06:41 Dose: 5 mg Documented by: Oxycodone HCl (Oxycodone Hcl Er 10 Mg Tab.Er.12h) 10 mg PO BID [facility] Last Admin: 02/22/21 08:15 Dose: 10 mg Documented by: Pharmacy Consult (Consult Rx Vancomycin Dosing) 1 each MISCELLANE DAILY PRN PRN Reason: Consult order Sodium Chloride (0.9 % Sodium Chloride Flush 3 Ml Syringe) 3 ml IVFLUSH QSHIFT [facility] Last Admin: 02/22/21 08:15 Dose: Not Given Documented by: Warfarin Sodium (Warfarin Sodium 2.5 Mg Tablet) 2.5 mg PO DAILY@1800 [facility] Last Admin: 02/21/21 17:09 Dose: 2.5 mg Documented by: Home Medications Medication Instructions Recorded Confirmed Last Taken Type brimonidine 0.2 % eye drops 1 drp OPHTHALMIC (EYE) BID ml 10/31/20 02/18/21 02/19/21 History dorzolamide 22.3 mg-timolol 6.8 1 drp OPHTHALMIC (EYE) BID ml 10/31/20 02/18/21 Unknown History mg/mL eye drops latanoprost 0.005 % eye drops 1 drp OPHTHALMIC (EYE) BEDTIME 10/31/20 02/15/21 02/19/21 History pravastatin 80 mg tablet 80 mg PO BEDTIME 10/31/20 02/15/21 Unknown History warfarin 2.5 mg tablet 2.5 mg PO DAILY 10/31/20 02/18/21 02/14/21 History cholecalciferol (vitamin D3) 25 25 mcg PO DAILY 02/18/21 02/18/21 Unknown History mcg (1,000 unit) capsule (Vitamin D3) Physical Exam Vital Signs: Vital Signs: Last Vital Signs Temp 97.1 F 02/22/21 08:00 Pulse 60 02/22/21 08:25 Resp 18 02/22/21 08:00 BP 118/56 L 02/22/21 08:25 Pulse Ox 96 02/22/21 08:25 Body Mass Index 25.0 Const: General: cooperative, healthy appearing, comfortable and no acute distress Orientation/consciousness: patient oriented x3 HENMT: Face and sinus: Yes normal facial exam Mouth: moist mucous membranes Neck: Neck: Yes normal visual inspection, Yes full ROM and Yes trachea midline Chest: Chest palpation & inspection: normal inspection of the chest Resp: Effort & Inspection: normal respiratory effort, able to speak in complete sentences and no respiratory distress GI: Inspection: Yes normal to inspection Back/Spine/Pelvis: Cervical Spine: normal cervical lordosis Thoracic/Lumbar Spine: thoracic and lumbar spine normal to inspection Skin: General skin exam: no rashes or lesions noted Neuro: General: patient oriented x3, gait normal, tone normal and moves all extremities Extrem: General: Yes normal to inspection and Yes capillary refill normal Results Labs Result diagrams: 02/22/21 05:26 02/22/21 05:26 Labs: Abnormal lab results 02/22/21 02/22/21 02/22/21 Range/Units 05:26 05:26 08:12 RBC 2.87 L (4.60-5.80) X10*6/uL Hgb 8.2 L (14.0-18.0) g/dl Hct 25.6 L D (42-52) % Lymph % (Auto) 15.6 L (20-40) % [place] % (Auto) 14.9 H (2-11) % Lymph # (Auto) 0.9 L (1.2-4.9) X10*3/uL PT 18.8 H (9.9-13.0) SEC INR 1.6 H (0.9-1.1) Anion Gap 9 L (12-20) BUN 17 H (9-16) mg/dL Fasting Glucose 107 H (60-99) mg/dL Calcium 7.6 L (8.4-10.2) mg/dL Short CBC 02/22/21 Range/Units 05:26 WBC 5.7 (4.8-10.8) X10*3/uL Hgb 8.2 L (14.0-18.0) g/dl Hct 25.6 L D (42-52) % Plt Count 175 (160-400) X10*3/uL BMP 02/22/21 05:26 Sodium 137 Potassium 3.7 Chloride 108 Carbon Dioxide 24 BUN 17 H Creatinine 0.95 Calcium 7.6 L All other labs normal. Assessment and Plan (1) Urinary retention with incomplete bladder emptying: Status: Acute Gonzáles catheter Catheter cap Follow up with local urologist Procedures Date of Service Date of Service: 02/22/21
== END 2021-02-22 12:20 | disposition home health service (06) | DRG 465 ==
LOC: HO.SSSA 08:03 → HO.S3 14:01
PROVIDERS: Internal Medicine; Nurse Practitioner; Orthopaedic Surgery; Physician Assistant; Admitting Provider Orthopaedic Surgery; PCP Physician Assistant Medical; Visit Provider Orthopaedic Surgery
PROC: 0SPC0JZ Removal of Synthetic Substitute from Right Knee Joint, Open Approach (ICD-10-PCS; CPT 27487; principal; 2021-02-19 09:40)
DX: T84.53XA Infection and inflammatory reaction due to internal right knee prosthesis, initial encounter (principal); R33.9 Retention of urine, unspecified; I48.0 Paroxysmal atrial fibrillation; Z20.822 Contact with and (suspected) exposure to COVID-19; Z87.891 Personal history of nicotine dependence; Z79.899 Other long term (current) drug therapy
CPT/HCPCS: 36415; 36573; 73560; 80048; 80202; 82565; 82947; 85025; 85027; 85610; 85652; 86140; 86850; 86900; 86901; 87071; 87073; 87205; 87635; 87640; 87641; 89051; 93005; 97110; 97116; 97162; C1713; C1751; C1758; C1776; J0690; J1170; J2370; J2405; J2550; J3370

== ENCOUNTER 2021-02-23 09:44 | Emergency (ER) | payer MEDICARE, SELFPAY ==
[2021-02-23 10:09] VITALS: BP 110/52; PULSE 90; RESP 16; TEMP 36.6; O2SAT 96; BMI 25.0
--- NOTE | 2021-02-23 11:23 | ED_ITS ---
HPI - Male Genitourinary General Chief complaint: Urogenital-Male Stated complaint: BLOCKED CATH Time Seen by Provider: 02/23/21 10:20 Source: patient Mode of arrival: ambulatory Limitations: no limitations History of Present Illness HPI Narrative: Patient is status post right knee surgery had Gonzáles catheter placed 2 days ago was removed today earlier as it was not working patient comes here as unable to urinate. Patient does have history of prostate enlargement status post surgery long time ago and was doing fine until this happened. Patient comes here as unable to urinate just dribbles few drops bladder scan showed more than 600 cc of urine Related Data Home Medications Medication Instructions Recorded Confirmed brimonidine 0.2 % eye drops 1 drp OPHTHALMIC (EYE) BID ml 10/31/20 02/18/21 dorzolamide 22.3 mg-timolol 6.8 1 drp OPHTHALMIC (EYE) BID ml 10/31/20 02/18/21 mg/mL eye drops latanoprost 0.005 % eye drops 1 drp OPHTHALMIC (EYE) BEDTIME 10/31/20 02/15/21 pravastatin 80 mg tablet 80 mg PO BEDTIME 10/31/20 02/15/21 warfarin 2.5 mg tablet 2.5 mg PO DAILY 10/31/20 02/18/21 cholecalciferol (vitamin D3) 25 25 mcg PO DAILY 02/18/21 02/18/21 mcg (1,000 unit) capsule (Vitamin D3) Previous Rx's Medication Instructions Recorded metoprolol succinate 25 mg 25 mg PO DAILY #30 tab 02/01/21 tablet,extended release 24 hr vancomycin 1.25 gram/250 mL in 0.9 1.25 g IV Q12H 42 Days #56537 ml 02/21/21 % sodium chloride intravenous acetaminophen 325 mg tablet 650 mg PO Q6H PRN 30 Days #240 tab 02/22/21 doxazosin 2 mg tablet 8 mg PO DAILY 30 Days #120 tab 02/22/21 oxycodone 5 mg tablet 5 mg PO Q4H PRN 7 Days #42 tab 02/22/21 Allergies Allergy/AdvReac Type Severity Reaction Status Date / Time ciprofloxacin [From CIPRO] Allergy Intermediate RASH Verified 02/11/21 12:24 Chocolate Allergy Sneezing Verified 02/18/21 13:15 milk Allergy Sneezing Verified 02/18/21 13:25 metoprolol AdvReac Severe Verified 02/18/21 13:28 Bradycardia Review of Systems Review of Systems: Yes all other systems are reviewed and are negative [facility] Past Medical History Medical History Abnormal gait Arthritis Atrial fibrillation Benign essential hypertension BPH (benign prostatic hyperplasia) Coronary arteriosclerosis in [place] artery Effusion, right knee Glaucoma Heart disease High cholesterol Myocardial infarct, old PAF (paroxysmal atrial fibrillation) Raynaud phenomenon RBBB (right bundle branch block) Surgical History History of bunionectomy of left great toe History of cardiac radiofrequency ablation History of cystoscopy History of left inguinal hernia repair History of meniscectomy of right knee History of prostate surgery History of total knee replacement Family History Family History Father No problems noted. Mother No problems noted. Social History Social History Are you a primary rn complex care to a significant other at home: No Do you presently have visiting nurse or other home services: No Alcohol intake: never Patient Tobacco Use Status: Former Tobacco user Quit Date: 1991 Tobacco use type: Cigarette Second Hand Smoke Exposure: No Advance Directives: Yes Advance Directives Information Provided: Yes Advance Directives on File: No service: No Current occupational status: retired Current occupation: left handed Physical Exam Vital Signs: Vital Signs: Last Vital Signs Temp 97.8 F 02/23/21 10:09 Pulse 84 02/23/21 12:35 Resp 16 02/23/21 12:35 BP 119/51 L 02/23/21 12:35 Pulse Ox 96 02/23/21 12:35 Body Mass Index 25.0 Appearance: Alert. Oriented X3. No acute distress. ENT: Pharynx normal. Oral Mucosa moist Neck: Normal inspection. Neck supple. CVS: Normal heart rate and rhythm. Pulses normal. Respiratory: No respiratory distress. Equal air entry bilateral, Abdomen: Soft and nontender. Bowel sounds are present, Skin: Skin warm and dry. Normal skin color. Normal skin turgor. Extremities: Right knee postop Neuro: Oriented X 3. MDM - Male Genitourinary MDM Narrative Medical decision making narrative: Gonzáles catheter was replaced UA is negative for infection discharge patient Lab Data Attestation: I reviewed the patient's lab results. Labs: Lab Results 02/23/21 Range/Units 12:35 Urine Color YELLOW Urine Appearance HAZY Urine pH 6.0 (5.0-8.0) Ur Specific [place] 1.015 (1.005-1.025) Urine Protein TRACE (NEG-TRACE) MG/DL Urine Glucose (UA) NEG (NEG) MG/DL Urine Ketones NEG (NEG) MG/DL Urine Blood 3+ H (NEG) Urine Nitrite NEG (NEG) Ur Leukocyte Esterase NEG (NEG) Urine RBC TNTC H (0) /HPF Urine WBC 5-9 H (0-4) /HPF Ur Squamous Epith Cells TRACE /LPF Amorphous Sediment TRACE /LPF Urine Bacteria 1+ /LPF Discharge Plan Discharge Clinical Impression: Acute retention of urine Patient Disposition: Home, Self-Care Instructions: Gonzáles Catheter Placement and Care (ED) Additional Instructions: Drink plenty of fluids Care of Gonzáles catheter as advised Follow up with your PCP next week for catheter removal Prescriptions: No Action metoprolol succinate 25 mg tablet extended release 24 hr 25 mg PO DAILY Qty: 30 RF: 5 cholecalciferol (vitamin D3) [Vitamin D3] 25 mcg (1,000 unit) Capsule 25 mcg PO DAILY RF: 0 vancomycin in 0.9 % sodium chl 1.25 gram/250 mL solution 1.25 g IV Q12H 42 Days Qty: 85698 RF: 0 acetaminophen 325 mg Tablet 650 mg PO Q6H PRN (Reason: Pain, Mild (Pain Scale 1-3)) 30 Days Qty: 240 RF: 0 doxazosin 2 mg Tablet 8 mg PO DAILY 30 Days Qty: 120 RF: 0 oxycodone 5 mg Tablet 5 mg PO Q4H PRN (Reason: Pain, Moderate (Pain Scale 4-6) 7 Days Qty: 42 RF: 0 pravastatin 80 mg tablet 80 mg PO BEDTIME RF: 0 warfarin 2.5 mg tablet 2.5 mg PO DAILY RF: 0 latanoprost 0.005 % drops 1 drp ophthalmic (eye) BEDTIME RF: 0 brimonidine 0.2 % drops 1 drp ophthalmic (eye) BID RF: 0 dorzolamide-timolol 22.3-6.8 mg/mL drops 1 drp ophthalmic (eye) BID RF: 0
[2021-02-23 12:35] VITALS: BP 119/51; PULSE 84; RESP 16; O2SAT 96
[2021-02-23 12:45] LABS: Appearance Urine HAZY; Color Urine YELLOW; Glucose Urine UA NEG (NEG); Leukocyte Esterase Urine NEG (NEG); Nitrite Urine NEG (NEG); Specific Gravity - Urine 1.015 (1.005-1.025); UACC Culture Trigger NO; Urine Blood 3+ (NEG); Urine Ketones NEG (NEG); Urine Protein TRACE MG/DL (NEG-TRACE)
[2021-02-23 12:54] LABS: Bacteria Urine 1+ /LPF; RBC Urine TNTC /HPF (0); Squamous Epithelial Cell Urine TRACE /LPF; UACC CULT YES
[2021-02-23 12:55] LABS: Amorphous Sediment Urine TRACE /LPF
--- NOTE | 2021-02-23 12:55 | PC.NURSE ---
600 ml of urine output from [facility]. aware.
[2021-02-23 13:47] VITALS: BP 116/80; PULSE 68; RESP 15; O2SAT 96
== END 2021-02-23 13:58 | disposition home or self-care (01) ==
PROVIDERS: Emergency Provider Internal Medicine; PCP Physician Assistant Medical
DX: R33.9 Retention of urine, unspecified (principal); Z79.899 Other long term (current) drug therapy; Z87.891 Personal history of nicotine dependence
CPT/HCPCS: 81001; 87086; 99284; 99285

== ENCOUNTER → 2021-03-06 11:20 | Outpatient (BNVA) | payer MEDICARE, SELFPAY | PROVIDERS: Visit Provider Physician Assistant | DX: Z89.529 Acquired absence of unspecified knee (principal) | CPT/HCPCS: 99212 ==

== ENCOUNTER → 2021-03-15 15:05 | Outpatient (BNVA) | payer MEDICARE, SELFPAY | PROVIDERS: Visit Provider Internal Medicine | DX: T84.53XA Infection and inflammatory reaction due to internal right knee prosthesis, initial encounter (principal); I51.9 Heart disease, unspecified; I48.0 Paroxysmal atrial fibrillation; I45.10 Unspecified right bundle-branch block; E78.00 Pure hypercholesterolemia, unspecified; Z87.891 Personal history of nicotine dependence; Z96.651 Presence of right artificial knee joint | CPT/HCPCS: 99202 ==

== ENCOUNTER → 2021-04-04 11:07 | Outpatient (BNVA) | payer MEDICARE, SELFPAY | PROVIDERS: Visit Provider Orthopaedic Surgery | DX: Z89.529 Acquired absence of unspecified knee (principal) | CPT/HCPCS: 99212 ==

== ENCOUNTER → 2021-04-15 13:45 | Outpatient (BNVA) | payer MEDICARE, SELFPAY | PROVIDERS: Visit Provider Internal Medicine | DX: T84.59XA Infection and inflammatory reaction due to other internal joint prosthesis, initial encounter (principal); Z96.651 Presence of right artificial knee joint | CPT/HCPCS: 99212 ==

== ENCOUNTER 2021-04-19 09:36 | Outpatient (REF) | payer MEDICARE, SELFPAY ==
[2021-04-19 09:49] LABS: MANUAL DIFF FLAG NO
[2021-04-19 10:53] LABS: Basophils Absolute Auto 0.1 X10*3/uL (0.0-0.2); Basophils Percent Auto 0.9 % (0-2); Eosinophils Absolute Auto 0.3 X10*3/uL (0.0-0.4); Eosinophils Percent Auto 5.1 % (0-4); Hemoglobin 11.5 g/dl (14.0-18.0); Imm Gran Abs Auto 0.01 X10*3/uL (0.00-0.03); Imm Gran Pct Auto 0.2 % (0.0-0.4); Lymphocytes Absolute Auto 1.2 X10*3/uL (1.2-4.9); Lymphocytes Percent Auto 21.6 % (20-40); Mean Corpuscular HGB Conc 30.3 g/dl (31.0-36.0); Mean Corpuscular Hemoglobin 26.8 pg (27.0-33.0); Mean Corpuscular Volume 88.6 fL (80.0-98.0); Mean Platelet Volume 12.1 fL (9.4-12.4); Monocytes Absolute Auto 0.7 X10*3/uL (0.1-1.2); Monocytes Percent Auto 12.7 % (2-11); Neutrophils Absolute Auto 3.4 x10*3/uL (2.0-8.3); Neutrophils Percent Auto 59.5 % (45-73); Platelet Count 212 X10*3/uL (160-400); Red Blood Count 4.29 X10*6/uL (4.60-5.80); Red Cell Distribution Width 14.7 % (11.0-16.0); White Blood Count 5.7 X10*3/uL (4.8-10.8)
[2021-04-19 11:46] LABS: Erythrocyte Sedimentation Rate 10 MM/HR (0-15)
[2021-04-19 11:47] LABS: Anion Gap 11 (12-20); Blood Urea Nitrogen 24 mg/dL (9-16); C Reactive Protein 0.54 mg/dL (< or = 0.50); Calcium 9.4 mg/dL (8.4-10.2); Carbon Dioxide 26 mmol/L (22-29); Chloride 106 mmol/L (96-108); Estimated Glomerular Filt Rate > 60; Glucose Random 73 mg/dL (60-115); Potassium 4.4 mmol/L (3.3-5.1); Sodium 139 mmol/L (135-145)
== END 2021-04-19 09:37 | disposition home or self-care (01) ==
LOC: HO.LAB 09:36
PROVIDERS: PCP Physician Assistant Medical; Visit Provider Orthopaedic Surgery
DX: Z01.812 Encounter for preprocedural laboratory examination (principal); T84.59XA Infection and inflammatory reaction due to other internal joint prosthesis, initial encounter; B99.9 Unspecified infectious disease; Z96.659 Presence of unspecified artificial knee joint
CPT/HCPCS: 36415; 80048; 85025; 85652; 86140

== ENCOUNTER → 2021-04-26 08:54 | Outpatient (BNVA) | payer MEDICARE, SELFPAY | PROVIDERS: PCP Physician Assistant Medical; Visit Provider Orthopaedic Surgery | DX: Z47.1 Aftercare following joint replacement surgery (principal); Z96.659 Presence of unspecified artificial knee joint | CPT/HCPCS: 99212 ==

== ENCOUNTER → 2021-04-29 08:24 | Outpatient (BNVA) | payer MEDICARE, SELFPAY | PROVIDERS: PCP Physician Assistant Medical; Visit Provider Internal Medicine | DX: Z89.529 Acquired absence of unspecified knee (principal) | CPT/HCPCS: 20610; 99212 ==

== ENCOUNTER 2021-05-08 06:13 | Inpatient (IN) | payer MEDICARE, SELFPAY ==
[2021-05-01 12:16] VITALS: BMI 24.9
--- NOTE | 2021-05-07 08:33 | HO.ANESPROP2 ---
Documented by User: Elinor Godinez NP 05/07/21 08:50 HPI - Anesthesia Eval Consult details Narrative: 76yo M for Right Knee Total Revision arthroplasty s/p revision 01/2021 with GA-ETT 7.5 Cardiac cleared at [facility] prior to 01/2021 Coumadin for afib PMFSH Active Problems Active Problems: All Active Problems (Updated 04/29/21 @ 08:57 by Von Gu MD) History of total right knee replacement (TKR) (Acute) Mechanical loosening of internal right knee prosthetic joint, subsequent encounter (Acute) Preoperative cardiovascular examination (Acute) Encounter for monitoring anti-arrhythmic therapy (Acute) Infected prosthetic knee joint (Acute) 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 with presence of antibiotic-impregnated cement spacer (Acute) Urinary retention with incomplete bladder emptying (Acute) Atherosclerotic cardiovascular disease (Acute) Past Medical History Medical History Abnormal gait Arthritis Atrial fibrillation Benign essential hypertension BPH (benign prostatic hyperplasia) Coronary arteriosclerosis in [place] artery Effusion, right knee Glaucoma Heart disease High cholesterol Myocardial infarct, old PAF (paroxysmal atrial fibrillation) Raynaud phenomenon RBBB (right bundle branch block) Family History Family History Father No problems noted. Mother No problems noted. Family history of problems with anesthesia: No Surgical History Surgical History History of bunionectomy of left great toe History of cardiac radiofrequency ablation History of cystoscopy History of left inguinal hernia repair History of meniscectomy of right knee History of prostate surgery History of right knee surgery History of total knee replacement History of Problems with Anesthesia: No Social History Social History Are you a primary congregational care pastor to a significant other at home: No Do you presently have visiting nurse or other home services: Yes (Patient's Granddaughter comes M-F to help) Alcohol intake: never Patient Tobacco Use Status: Former Tobacco user Quit Date: 1991 Tobacco use type: Cigarette Second Hand Smoke Exposure: No Use of substances other than those prescribed or required for medical reasons: No Have you been hit, kicked, punched, or otherwise hurt by someone within the past year? If so, by whom?: No Are you DNR?: No Advance Directives: No Advance Directives Information Provided: No Advance Directives on File: No Recently lost weight without trying: No Eating poorly because of decreased appetite: No Nutrition Risks: No Nutritional Risk service: No Current occupational status: retired Current occupation: left handed Meds Allergies Allergy/AdvReac Type Severity Reaction Status Date / Time ciprofloxacin [From CIPRO] Allergy Intermediate RASH Verified 05/01/21 10:35 Chocolate Allergy Sneezing Verified 05/01/21 10:35 milk Allergy Sneezing Verified 05/01/21 10:35 Home Medications Medication Instructions Recorded Confirmed Last Taken Type brimonidine 0.2 % eye drops 1 drp OPHTHALMIC (EYE) BID ml 10/31/20 05/01/21 02/19/21 History dorzolamide 22.3 mg-timolol 6.8 1 drp OPHTHALMIC (EYE) BID ml 10/31/20 05/01/21 Unknown History mg/mL eye drops latanoprost 0.005 % eye drops 1 drp OPHTHALMIC (EYE) BEDTIME 10/31/20 05/01/21 02/19/21 History pravastatin 80 mg tablet 80 mg PO BEDTIME 10/31/20 05/01/21 Unknown History warfarin 2.5 mg tablet 2.5 mg PO DAILY 10/31/20 05/01/21 05/01/21 History cholecalciferol (vitamin D3) 25 25 mcg PO DAILY 02/18/21 05/01/21 Unknown History mcg (1,000 unit) capsule (Vitamin D3) tamsulosin 0.4 mg capsule 1 cap PO DAILY 05/01/21 05/01/21 Unknown History Exam Exam Date and Time: May 07, 2021 0833 Height,Weight and Vital Signs: Height 5 ft 7 in Weight 72.121 kg Pertinent Lab Results Pertinent Lab Results: Laboratory Tests 04/19/21 04/19/21 09:48 09:48 WBC 5.7 Hgb 11.5 L Hct 38.0 L Plt Count 212 Sodium 139 Potassium 4.4 Chloride 106 Carbon Dioxide 26 BUN 24 H Creatinine 1.02 Narrative Narrative: EKG 12/2020 Vent. Rate : 047 BPM ? ? Atrial Rate : 047 BPM ?? P-R Int : 192 ms? QRS Dur : 146 ms ? ? QT Int : 482 ms ? ? ? P-R-T Axes : 077 -58 035 degrees ?? QTc Int : 426 ms ? Sinus bradycardia Left axis deviation Right bundle branch block Abnormal ECG When compared with ECG of 17-AUG-2018 14:15, QT has shortened ECHO 01/29/21 Conclusions: - Visually estimated LVEF about 50%. ? - There is mild aortic valve regurgitation.? ? ? NM cardiolite stress test 01/2021 Impression: ? 1.? Myocardial perfusion imaging study shows fixed inferior defect suggestive nontransmural infarct. There is no clear reversible defect on nonattenuated images suggestive of ischemia. 2.? Gated LVEF is 46% with stress and 50% with rest 3. Transient ischemic dilatation present ? EKG is nondiagnostic for ischemia Assessment and Plan Assessment Anesthesia Assessment: Chart Reviewed Final Anesthetic Review Family History of Problems with Anesthesia: No History of Problems with Anesthesia: No Documented by User: Rachna Santos MD 05/08/21 08:52 HPI - Anesthesia Eval Consult details Narrative: 76yo M with acquired absence of knee joint. 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 Denies recent chest pain Past Medical History Medical History Abnormal gait Arthritis Atrial fibrillation Benign essential hypertension BPH (benign prostatic hyperplasia) Coronary arteriosclerosis in [place] artery Effusion, right knee Glaucoma Heart disease High cholesterol Myocardial infarct, old PAF (paroxysmal atrial fibrillation) Raynaud phenomenon RBBB (right bundle branch block) Family History Family History Father No problems noted. Mother No problems noted. Surgical History Surgical History History of bunionectomy of left great toe History of cardiac radiofrequency ablation History of cystoscopy History of left inguinal hernia repair History of meniscectomy of right knee History of prostate surgery History of right knee surgery History of total knee replacement Social History Social History Are you a primary congregational care pastor to a significant other at home: No Do you presently have visiting nurse or other home services: Yes (Patient's Granddaughter comes M-F to help) Alcohol intake: never Patient Tobacco Use Status: Former Tobacco user Quit Date: 1991 Tobacco use type: Cigarette Second Hand Smoke Exposure: No Use of substances other than those prescribed or required for medical reasons: No Have you been hit, kicked, punched, or otherwise hurt by someone within the past year? If so, by whom?: No Are you DNR?: No Advance Directives: No Advance Directives Information Provided: No Advance Directives on File: No Recently lost weight without trying: No Eating poorly because of decreased appetite: No Nutrition Risks: No Nutritional Risk service: No Current occupational status: retired Current occupation: left handed Meds Allergies Allergy/AdvReac Type Severity Reaction Status Date / Time ciprofloxacin [From CIPRO] Allergy Intermediate RASH Verified 05/01/21 10:35 Chocolate Allergy Sneezing Verified 05/01/21 10:35 milk Allergy Sneezing Verified 05/01/21 10:35 Home Medications Medication Instructions Recorded Confirmed Last Taken Type brimonidine 0.2 % eye drops 1 drp OPHTHALMIC (EYE) BID ml 10/31/20 05/01/21 02/19/21 History dorzolamide 22.3 mg-timolol 6.8 1 drp OPHTHALMIC (EYE) BID ml 10/31/20 05/01/21 Unknown History mg/mL eye drops latanoprost 0.005 % eye drops 1 drp OPHTHALMIC (EYE) BEDTIME 10/31/20 05/01/21 02/19/21 History pravastatin 80 mg tablet 80 mg PO BEDTIME 10/31/20 05/01/21 Unknown History warfarin 2.5 mg tablet 2.5 mg PO DAILY 10/31/20 05/01/21 05/01/21 History cholecalciferol (vitamin D3) 25 25 mcg PO DAILY 02/18/21 05/01/21 Unknown History mcg (1,000 unit) capsule (Vitamin D3) tamsulosin 0.4 mg capsule 1 cap PO DAILY 05/01/21 05/01/21 Unknown History Exam Height,Weight and Vital Signs: Height 5 ft 7 in Weight 72.121 kg Vital Signs Temp Pulse Resp BP Pulse Ox 05/08/21 06:47 97.3 F 48 L 16 155/66 H 100 Pertinent Lab Results Pertinent Lab Results: Laboratory Tests 04/19/21 04/19/21 09:48 09:48 WBC 5.7 Hgb 11.5 L Hct 38.0 L Plt Count 212 Sodium 139 Potassium 4.4 Chloride 106 Carbon Dioxide 26 BUN 24 H Creatinine 1.02 Lab Results 05/08/21 05/08/21 05/08/21 Range/Units 06:07 06:17 06:17 PT 12.3 (9.9-13.0) SEC INR 1.1 (0.9-1.1) COVID-19 (RY) Negative (Negative) COVID-19 Clin Com See Note Blood Type O Positive Antibody Screen NEGATIVE Airway Mallampati Class: II TM Dist: >3cm Neck ROM: Full Loose/Missing/Broken Teeth: Yes (Molars missing.) Heart: RRR Lungs: CTAB Assessment and Plan Assessment Anesthesia Assessment: Anesthesia Plan Discussed Final Anesthetic Review NPO: Yes ASA Class: III Final Preanesthetic Review: No Changes in Pt Med Stat, Meds/Allgs Chart Reviewed, Consent Obtained/Reviewed and Anes Risks/Benef Reviewed Patient Risk: Intermediate Procedure Risk: Intermediate Assessment/Block/Sedation in SS: Assess/Block/Sedation- Anesthetic Plan Anesthetic Plan: GA, Spinal and Regional Block (Right adductor canal block ) Disposition: Standard PACU and Inp. Admit - Standard Bed
[2021-05-08] VITALS (17 sets, daily range): BP systolic 77–155; BP diastolic 39–71; PULSE 43–76; RESP 10–18; TEMP 36–37.2; O2SAT 92–100
--- NOTE | ~2021-05-08 | XR_ITS ---
EXAMINATION: XR KNEE, RIGHT CLINICAL INFORMATION: Right total knee arthroplasty. COMPARISON: February 19, 2021 and studies dating back to December 11, 2015 TECHNIQUE: AP and lateral views of the right knee. FINDINGS: Patient status post revision of right total knee at the plasty with prosthetic components in good position. No acute fracture is appreciated. There is some gas within the soft tissues from the recent surgery as well as a knee effusion. Anterior staple line present. XR/XR knee RT 2V IMPRESSION: Satisfactory appearance status post right total knee arthroplasty.
[2021-05-08 06:40] LABS: INTERNATIONAL NORM RATIO 1.1 (0.9-1.1); Prothrombin Time 12.3 SEC (9.9-13.0)
[2021-05-08 06:52] LABS: COVID-19 Test Negative (Negative)
[2021-05-08] MEDS: Lactated Ringers 1,000 ML 100 ML IVCONT (06:59)
[2021-05-08] MEDS: vancomycin HCL 1,000 MG in 0.9 % Sodium Chloride 250 ML 270 MG IV ×2 (07:01→19:29)
--- NOTE | 2021-05-08 07:29 | MHC.SHP ---
Pre-Procedural Eval Section A Date of Service: 05/08/21 The patient is an INPATIENT: No Changes since office visit: Yes Patient answered all questions; No Cold of Flu in the past 2 weeks, No New Medical Problems and No Changes in Medication The History & Physical has been completed within 30 days and I have reviewed it.: Yes Section B Chief Complaint: revision rt tka Allergies: Allergies Allergy/AdvReac Type Severity Reaction Status Date / Time ciprofloxacin [From CIPRO] Allergy Intermediate RASH Verified 05/01/21 10:35 Chocolate Allergy Sneezing Verified 05/01/21 10:35 milk Allergy Sneezing Verified 05/01/21 10:35 Plan I have reviewed the history and physical and performed a pertinent physical examination on my patient. No changes have occurred unless specified.
--- NOTE | 2021-05-08 10:54 | P.BOP_ITS ---
Brief Operative Note Date of Service: 05/08/21 Pre-op diagnosis: infected prosthesis right knee Post-op diagnosis: same Procedure: revision right knee arthroplasty Implants: [place] tribhargav TS 07/26/18TS/s Surgeon: Valdez Agrawal MD Anesthesia: regional and spinal Was an Member Of Parliament used for this Procedure?: No Estimated blood loss (mL): 200 IV fluids (mL): 1,000 Pathology: none sent Condition: stable Disposition: PACU
--- NOTE | 2021-05-08 11:12 | W.PM.OPN ---
Operative Note Operative Note Date of Service: 05/08/21 Narrative: Pre-op diagnosis: infected prosthesis right knee Post-op diagnosis: same Procedure: revision right knee arthroplasty Implants: [place] [employer] TS 07/26/18TS/31s Surgeon: Valdez Agrawal MD Anesthesia: regional and spinal Was an Hogshead Hooper used for this Procedure?: No Estimated blood loss (mL): 200 IV fluids (mL): 1,000 Pathology: none sent Condition: stable Disposition: PACU Procedure in detail: I began by making a midline incision through the prior incision. Skin flaps were developed and a medial parapatellar arthrotomy was performed. I translated the patella laterally and with an osteotome removed the femoral and tibial cement prosthesis without difficulty. There was minimal additional bone loss. There was no evidence of infection or air pockets of irregular looking tissue. I then began with the tibia but I have removing the abundant prepatellar scar tissue and removing the fibrous tissue from the meniscal beds. Hohmann retractors were placed and I visualized the tibia. I had some bone loss posteromedially but minimal. I performed a 5 mm clean up cut medially and is 0 mm clean-up cut laterally after I placed my intramedullary tibial alignment ryan. I sized my tibia, made my sagittal cut to allow for the medial augment and then turned my attention to the femur. I used it intramedullary femoral ryan after a reamed up to a 16 and then placed my distal femoral cutting guide. I made 2 clean-up cuts accounting for 5 degree augments based on the medial epicondyle. I then sized a 3 femur and made my anterior posterior and chamfer cuts. There were 5 mm posterior augments as well. I then placed a 3 trial after I made my box cut and trialed a 4 tibia. I took the knee through range of motion and I was happy with the stability and and the tracking. I then turned my attention to the patella. The center of the patella had depth of 10 mm. I used the oscillating saw to remove extraneous bone and then measured a 30mm symmetric patella. This was provisionally placed and the knee was taken through range of motion I was very happy with the tracking. I then returned to the tibia where I prepared my tibial canal. All instrumentation was then removed and copious irrigation was performed. All excess fibrous tissue and bony/cement debris was removed. Two bags of [place] bone cement were mixed on the back table and then I cemented in the femur and tibia in standard fashion while applying axial compression with a clamp on the patella. Once the cement was completely dried I removed all nonessential instrumentation and then trialed with a 13 for 16 and 19 TS insert. I was happiest with the 19. This was placed. A 3 minute iodine soak with TXA was administered and then a layered closure was performed with anoop on the skin. Patient was placed in sterile dressing extubated brought to recovery room in stable condition there were no known complications.
[2021-05-08] MEDS: fentaNYL citrate/PF 100 MCG/2 ML VIAL 25 MCG IVPUSH ×2 (11:25→11:57)
[2021-05-08] MEDS: oxyCODONE HCl Immed Release 5 MG TABLET PO ×2 (11:25→16:15)
[2021-05-08] MEDS: Acetaminophen 325 MG TABLET 650 MG PO (11:25)
[2021-05-08] MEDS: HYDROmorphone HCl 0.5 MG/0.5 ML SYRINGE 0.25 MG IVPUSH (13:10)
[2021-05-08] MEDS: Dextrose 5 % and 0.45 % NaCl 1,000 ML 80 ML IVCONT (14:20)
--- NOTE | 2021-05-08 14:43 | HO.PM.IMCN ---
History of Present Illness Data of Consult Service Date: 05/08/21 Requesting physician: Valdez Agrawal Primary Care Provider: Glenny Henderson PA-C HPI Reason for consult: medical management 76yo M with?infected prosthesis of R knee who underwent revision of R knee arthroplasty. Hospitalist consultation requested for medical management. Pt has AF and is anticoagulated on warfarin. Hx of HI in . Had preop stress test showing fixed inferior transmural infarcation, flecainide was stopped. Pt on beta-vignesh. No chest pain or dyspnea. Review of Systems Review of Systems: Yes all other systems are reviewed and are negative [facility] Medical History Abnormal gait Arthritis Atrial fibrillation Benign essential hypertension BPH (benign prostatic hyperplasia) Coronary arteriosclerosis in [place] artery Effusion, right knee Glaucoma Heart disease High cholesterol Myocardial infarct, old PAF (paroxysmal atrial fibrillation) Raynaud phenomenon RBBB (right bundle branch block) Family History Father No problems noted. Mother No problems noted. Surgical History History of bunionectomy of left great toe History of cardiac radiofrequency ablation History of cystoscopy History of left inguinal hernia repair History of meniscectomy of right knee History of prostate surgery History of right knee surgery History of total knee replacement Social History Are you a primary care transport nurse to a significant other at home: No Do you presently have visiting nurse or other home services: Yes (Patient's Granddaughter comes M-F to help) Alcohol intake: never Patient Tobacco Use Status: Former Tobacco user Quit Date: 1991 Tobacco use type: Cigarette Second Hand Smoke Exposure: No Use of substances other than those prescribed or required for medical reasons: No Currently Displaying Signs/Symptoms of Drug Intoxication Withdrawal: No Have you been hit, kicked, punched, or otherwise hurt by someone within the past year? If so, by whom?: No Are you DNR?: No Advance Directives: No Advance Directives Information Provided: No Advance Directives on File: No Do you have thoughts of harming others: None Do you have a plan to hurt others: No Plan Recently lost weight without trying: No Eating poorly because of decreased appetite: No Nutrition Risks: No Nutritional Risk service: No Current occupational status: retired Current occupation: left handed Meds Allergies Allergy/AdvReac Type Severity Reaction Status Date / Time ciprofloxacin [From CIPRO] Allergy Intermediate RASH Verified 05/01/21 10:35 Chocolate Allergy Sneezing Verified 05/01/21 10:35 milk Allergy Sneezing Verified 05/01/21 10:35 Active Medications: Current Medications Acetaminophen (Acetaminophen 325 Mg Tablet) 650 mg PO Q6H PRN PRN Reason: Pain, Mild (Pain Scale 1-3) Acetaminophen (Acetaminophen 325 Mg Tablet) 650 mg PO Q6H PRN PRN Reason: Pain, Mild (Pain Scale 1-3) Brimonidine Tartrate (Brimonidine Tartrate 0.2% Oph 5 Ml Bottle) 1 drop EYE-BOTH BID [facility] Celecoxib (Celecoxib 200 Mg Capsule) 200 mg PO BID [facility] Dorzolamide/Timolol (Dorzolamide/Timolo 2.23%/0.68% 10 Ml Drbtl) 1 drop EYE-BOTH BID [facility] Doxazosin Mesylate (Doxazosin Mesylate 2 Mg Tablet) 8 mg PO DAILY [facility]; Protocol Hydromorphone HCl (Hydromorphone Hcl 0.5 Mg/0.5 Ml Syringe) 0.25 mg IVPUSH Q4H PRN; Protocol PRN Reason: Pain, Severe (Pain Scale 7-10) Last Admin: 05/08/21 13:10 Dose: 0.25 mg Documented by: Dextrose/Sodium Chloride (D51/2ns) 1,000 mls @ 80 mls/hr IVCONT .[id number] [facility] Last Admin: 05/08/21 14:20 Dose: 80 mls/hr Documented by: Vancomycin HCl 1,000 mg/ (Sodium Chloride) 270 mls @ 270 mls/hr IV POSTOP ONE Stop: 05/08/21 19:59 Latanoprost (Latanoprost 0.005 % Ophth Loretta 2.5 Ml Drops) 1 drop EYE-BOTH BEDTIME [facility] Ondansetron HCl (Ondansetron Hcl 4 Mg/2 Ml Vial) 4 mg IVPUSH Q8H PRN PRN Reason: Nausea and Vomiting Oxycodone HCl (Oxycodone Hcl Immed Release 5 Mg Tablet) 5 mg PO Q4H PRN PRN Reason: Pain, Moderate (Pain Scale 4-6 Oxycodone HCl (Oxycodone Hcl Er 10 Mg Tab.Er.12h) 10 mg PO BID [facility] Pharmacy Consult (Consult Rx Vancomycin Dosing) 1 each MISCELLANE DAILY PRN PRN Reason: Consult order Pravastatin Sodium (Pravastatin Sodium 80 Mg Tablet) 80 mg PO BEDTIME [facility] Sodium Chloride (0.9 % Sodium Chloride Flush 3 Ml Syringe) 3 ml IVFLUSH QSHIFT [facility] Last Admin: 05/08/21 14:23 Dose: Not Given Documented by: Tamsulosin HCl (Tamsulosin Hcl 0.4 Mg Capsule) 0.4 mg PO DAILY [facility] Vitamin D (Cholecalciferol (Vitamin D3) 25 Mcg Tablet) 25 mcg PO DAILY [facility] Home Medications Medication Instructions Recorded Confirmed Last Taken Type brimonidine 0.2 % eye drops 1 drp OPHTHALMIC (EYE) BID ml 10/31/20 05/01/21 02/19/21 History dorzolamide 22.3 mg-timolol 6.8 1 drp OPHTHALMIC (EYE) BID ml 10/31/20 05/01/21 Unknown History mg/mL eye drops latanoprost 0.005 % eye drops 1 drp OPHTHALMIC (EYE) BEDTIME 10/31/20 05/01/21 02/19/21 History pravastatin 80 mg tablet 80 mg PO BEDTIME 10/31/20 05/01/21 Unknown History warfarin 2.5 mg tablet 2.5 mg PO DAILY 10/31/20 05/01/21 05/01/21 History cholecalciferol (vitamin D3) 25 25 mcg PO DAILY 02/18/21 05/01/21 Unknown History mcg (1,000 unit) capsule (Vitamin D3) tamsulosin 0.4 mg capsule 1 cap PO DAILY 05/01/21 05/01/21 Unknown History Physical Exam Vital Signs and Narrative: Vital Signs: Last Vital Signs Temp 97.2 F 05/08/21 12:46 Pulse 65 05/08/21 12:46 Resp 15 05/08/21 12:46 BP 139/60 05/08/21 12:46 Pulse Ox 98 05/08/21 12:46 BMI result Body Mass Index 24.9 Gen: in no acute distress HEENT: sclera anicteric, moist mucus membranes Neck: supple Lungs: clear to auscultation bilaterally Heart: irregular, no murmurs Abd: soft, non-tender, non-distended Ext: no edema Skin: warm/well-perfused Neuro: alert and oriented x3, no focal findings Psych: appropriate affect Results Labs Labs: Laboratory Results - last 24 hr 05/08/21 05/08/21 05/08/21 06:07 06:17 06:17 PT 12.3 INR 1.1 COVID-19 (RY) Negative COVID-19 Clin Com See Note Blood Type O Positive Antibody Screen NEGATIVE Imaging Radiologist's Impressions: Impressions Knee X-Ray 05/08/21 13:30 IMPRESSION: Satisfactory appearance status post right total knee arthroplasty. Assessment and Plan (1) History of total right knee replacement (TKR): Status: Acute (2) Atrial fibrillation: Status: Acute 76yo M with?infected prosthesis of R knee who underwent revision of R knee arthroplasty. Medical consultation for management of comorbid conditions. # infected R TKA - s/p resection and placement of spacer 02/19/21, s/p revision arthroplasty today - ID consult, continue vancomycin # pAF - continue metoprolol succinate - resume warfarin, goal INR 2-3 # HLD - continue pravastatin # BPH - continue tamsulosin [does not take doxazosin anymore]
[2021-05-08] MEDS: Ketorolac Tromethamine 30 MG/ML VIAL IVPUSH (14:52)
[2021-05-08] MEDS: oxyCODONE HCl ER 10 MG TAB.ER.12H PO (19:30)
[2021-05-08] MEDS: Latanoprost 0.005 % Ophth Sol 2.5 ML DROPS 1 DROP EYE-BOTH (19:30)
[2021-05-08] MEDS: Pravastatin Sodium 80 MG TABLET PO (19:30)
[2021-05-08] MEDS: Celecoxib 200 MG CAPSULE PO (19:30)
[2021-05-08] MEDS: Brimonidine Tartrate 0.2% Oph 5 ML BOTTLE 1 DROP EYE-BOTH (19:30)
[2021-05-08] MEDS: Dorzolamide/Timolo 2.23%/0.68% 10 ML DRBTL 1 DROP EYE-BOTH (19:30)
[2021-05-08] MEDS: 0.9 % Sodium Chloride Flush 3 ML SYRINGE IVFLUSH (19:31)
[2021-05-08] MEDS: Tamsulosin HCL 0.4 MG CAPSULE PO (20:34)
[2021-05-09] MEDS: Dextrose 5 % and 0.45 % NaCl 1,000 ML 80 ML IVCONT (00:39)
[2021-05-09] MEDS: ondansetron HCL 4 MG/2 ML VIAL IVPUSH ×2 (03:22→17:27)
[2021-05-09 03:41] VITALS: BP 141/67; PULSE 65; RESP 18; TEMP 36; O2SAT 95
[2021-05-09 06:22] LABS: MANUAL DIFF FLAG NO
[2021-05-09 06:24] LABS: Basophils Percent Auto 0.1 % (0-2); Hematocrit 27.9 % (42.0-52.0); Hemoglobin 8.9 g/dl (14.0-18.0); Imm Gran Abs Auto 0.07 X10*3/uL (0.00-0.03); Imm Gran Pct Auto 0.5 % (0.0-0.4); Lymphocytes Percent Auto 7.7 % (20-40); Mean Corpuscular HGB Conc 31.9 g/dl (31.0-36.0); Mean Corpuscular Hemoglobin 27.7 pg (27.0-33.0); Mean Corpuscular Volume 86.9 fL (80.0-98.0); Mean Platelet Volume 11.1 fL (9.4-12.4); Monocytes Absolute Auto 1.1 X10*3/uL (0.1-1.2); Monocytes Percent Auto 8.5 % (2-11); Neutrophils Absolute Auto 10.9 x10*3/uL (2.0-8.3); Neutrophils Percent Auto 83.2 % (45-73); Platelet Count 151 X10*3/uL (160-400); Red Blood Count 3.21 X10*6/uL (4.60-5.80); Red Cell Distribution Width 14.9 % (11.0-16.0); White Blood Count 13.2 X10*3/uL (4.8-10.8)
[2021-05-09 06:29] LABS: INTERNATIONAL NORM RATIO 1.2 (0.9-1.1); Prothrombin Time 13.6 SEC (9.9-13.0)
[2021-05-09 06:42] LABS: Anion Gap 9 (12-20); Blood Urea Nitrogen 25 mg/dL (9-16); Calcium 8.6 mg/dL (8.4-10.2); Carbon Dioxide 28 mmol/L (22-29); Chloride 107 mmol/L (96-108); Creatinine Clr Calc Pharmacy 58.6; Estimated Glomerular Filt Rate > 60; Glucose Fasting 154 mg/dL (60-99); Sodium 139 mmol/L (135-145)
[2021-05-09 07:39] VITALS: BP 152/67; PULSE 72; RESP 16; TEMP 36.3; O2SAT 97
[2021-05-09] MEDS: Tamsulosin HCL 0.4 MG CAPSULE PO (08:00)
[2021-05-09] MEDS: Celecoxib 200 MG CAPSULE PO ×2 (08:00→20:02)
[2021-05-09] MEDS: Metoprolol Succinate ER 25 MG TAB.ER.24H PO (08:00)
[2021-05-09] MEDS: Cholecalciferol (Vitamin D3) 25 MCG TABLET PO (08:00)
[2021-05-09] MEDS: Brimonidine Tartrate 0.2% Oph 5 ML BOTTLE 1 DROP EYE-BOTH ×2 (08:00→20:03)
[2021-05-09] MEDS: Dorzolamide/Timolo 2.23%/0.68% 10 ML DRBTL 1 DROP EYE-BOTH ×2 (08:00→20:03)
[2021-05-09] MEDS: oxyCODONE HCl ER 10 MG TAB.ER.12H PO ×2 (08:00→20:02)
--- NOTE | 2021-05-09 09:13 | PM.PNORT ---
Subjective Subjective Date of Service: 05/09/21 Interval history: POD 1 s/p revision RT TKA No overnight events pain tolerable, has been out of bed ambulating no concerns Physical Exam Vital Signs: Vital Signs: Last Vital Signs Temp 97.4 F 05/09/21 07:39 Pulse 72 05/09/21 07:39 Resp 16 05/09/21 07:39 BP 152/67 H 05/09/21 07:39 Pulse Ox 97 05/09/21 07:39 BMI result Body Mass Index 24.9 Const: General: cooperative, healthy appearing and no acute distress Resp: Effort & Inspection: normal respiratory effort and able to speak in complete sentences Cardio: Rate: regular rate Peripheral pulses: Peripheral pulses 2+ throughout GI: Palpation (GI): Soft to palpation Skin: General skin exam: no rashes or lesions noted Extrem: Other: Right knee dressing intact, pulses present. Procedures Date of Service Date of Service: 05/09/21 Progress Note: A&P Assessment and plan (1) Status post revision of total replacement of right knee: Status: Acute Assessment and Plan: Continue pain mgmnt Begin Coumadin begin PT for RT TKA monitor h/h Dispo planning-Pending PT eval, pain mgmnt Fall Risk Details Current Medications: Current Medications Acetaminophen (Acetaminophen 325 Mg Tablet) 650 mg PO Q6H PRN PRN Reason: Pain, Mild (Pain Scale 1-3) Acetaminophen (Acetaminophen 325 Mg Tablet) 650 mg PO Q6H PRN PRN Reason: Pain, Mild (Pain Scale 1-3) Brimonidine Tartrate (Brimonidine Tartrate 0.2% Oph 5 Ml Bottle) 1 drop [facility]-BOTH BID [facility] Last Admin: 05/09/21 08:00 Dose: 1 drop Documented by: Celecoxib (Celecoxib 200 Mg Capsule) 200 mg PO BID [facility] Last Admin: 05/09/21 08:00 Dose: 200 mg Documented by: Dorzolamide/Timolol (Dorzolamide/Timolo 2.23%/0.68% 10 Ml Drbtl) 1 drop EYE-BOTH BID [facility] Last Admin: 05/09/21 08:00 Dose: 1 drop Documented by: Hydromorphone HCl (Hydromorphone Hcl 0.5 Mg/0.5 Ml Syringe) 0.5 mg IVPUSH Q3H PRN; Protocol PRN Reason: Pain, Severe (Pain Scale 7-10) Dextrose/Sodium Chloride (D51/2ns) 1,000 mls @ 80 mls/hr IVCONT .[id number] [facility] Last Admin: 05/09/21 00:39 Dose: 80 mls/hr Documented by: Latanoprost (Latanoprost 0.005 % Ophth Loretta 2.5 Ml Drops) 1 drop EYE-BOTH BEDTIME [facility] Last Admin: 05/08/21 19:30 Dose: 1 drop Documented by: Metoprolol Succinate (Metoprolol Succinate Er 25 Mg Tab.Er.24h) 25 mg PO DAILY [facility]; Protocol Last Admin: 05/09/21 08:00 Dose: 25 mg Documented by: Ondansetron HCl (Ondansetron Hcl 4 Mg/2 Ml Vial) 4 mg IVPUSH Q8H PRN PRN Reason: Nausea and Vomiting Last Admin: 05/09/21 03:22 Dose: 4 mg Documented by: Oxycodone HCl (Oxycodone Hcl Er 10 Mg Tab.Er.12h) 10 mg PO BID [facility] Last Admin: 05/09/21 08:00 Dose: 10 mg Documented by: Oxycodone HCl (Oxycodone Hcl Immed Release 5 Mg Tablet) 10 mg PO Q4H PRN PRN Reason: Pain, Moderate (Pain Scale 4-6 Pharmacy Consult (Consult Rx Vancomycin Dosing) 1 each MISCELLANE DAILY PRN PRN Reason: Consult order Pravastatin Sodium (Pravastatin Sodium 80 Mg Tablet) 80 mg PO BEDTIME [facility] Last Admin: 05/08/21 19:30 Dose: 80 mg Documented by: Sodium Chloride (0.9 % Sodium Chloride Flush 3 Ml Syringe) 3 ml IVFLUSH QSHIFT [facility] Last Admin: 05/09/21 08:01 Dose: Not Given Documented by: Tamsulosin HCl (Tamsulosin Hcl 0.4 Mg Capsule) 0.4 mg PO DAILY [facility] Last Admin: 05/09/21 08:00 Dose: 0.4 mg Documented by: Vitamin D (Cholecalciferol (Vitamin D3) 25 Mcg Tablet) 25 mcg PO DAILY [facility] Last Admin: 05/09/21 08:00 Dose: 25 mcg Documented by: Warfarin Sodium (Warfarin Sodium 5 Mg Tablet) 5 mg PO ONCE@1600 ONE Stop: 05/09/21 16:01 Time Spent With Patient Time: Total time spent is greater than 50% in coordination of care (as documented) at patient's floor/unit and/or counseling patient: Time with patient: less than 15 minutes Quality Stroke Does the patient have a stroke diagnosis?: No VTE Prior VTE?: No VTE Risk Level:: Surgical - very high VTE Device Contraindication: N/A - Device Ordered VTE Drug Contraindication: N/A - Med Ordered
--- NOTE | 2021-05-09 10:09 | P.PNIM_ITS ---
Subjective Subjective Date of Service: 05/09/21 Interval History: Ambulated c PT today No chest pain or palpitations No dyspnea Postop pain controlled Review of Systems Review of Systems: Yes all other systems are reviewed and are negative Physical Exam Vital Signs: Vital Signs: Last Vital Signs Temp 97.4 F 05/09/21 07:39 Pulse 72 05/09/21 07:39 Resp 16 05/09/21 07:39 BP 152/67 H 05/09/21 07:39 Pulse Ox 97 05/09/21 07:39 BMI result Body Mass Index 24.9 Gen: in no acute distress HEENT: sclera anicteric, moist mucus membranes Neck: supple Lungs: clear to auscultation bilaterally Heart: regular rate and rhythm, no murmurs Abd: soft, non-tender, non-distended Ext: no edema Skin: warm/well-perfused, R knee dressing dry Neuro: alert and oriented x3, no focal findings Psych: appropriate affect Objective Data Active Medications Acetaminophen (Acetaminophen 325 Mg Tablet) 650 mg PO Q6H PRN PRN Reason: Pain, Mild (Pain Scale 1-3) Acetaminophen (Acetaminophen 325 Mg Tablet) 650 mg PO Q6H PRN PRN Reason: Pain, Mild (Pain Scale 1-3) Brimonidine Tartrate (Brimonidine Tartrate 0.2% Oph 5 Ml Bottle) 1 drop EYE- BOTH BID [facility] Last Admin: 05/09/21 08:00 Dose: 1 drop Documented by: MARTIN Celecoxib (Celecoxib 200 Mg Capsule) 200 mg PO BID [facility] Last Admin: 05/09/21 08:00 Dose: 200 mg Documented by: MARTIN Dorzolamide/Timolol (Dorzolamide/Timolo 2.23%/0.68% 10 Ml Drbtl) 1 drop EYE- BOTH BID [facility] Last Admin: 05/09/21 08:00 Dose: 1 drop Documented by: MARTIN Hydromorphone HCl (Hydromorphone Hcl 0.5 Mg/0.5 Ml Syringe) 0.5 mg IVPUSH Q3H PRN; Protocol PRN Reason: Pain, Severe (Pain Scale 7-10) Dextrose/Sodium Chloride (D51/2ns) 1,000 mls @ 80 mls/hr IVCONT .[id number] [facility] Last Admin: 05/09/21 00:39 Dose: 80 mls/hr Documented by: GEMINI Latanoprost (Latanoprost 0.005 % Ophth Loretta 2.5 Ml Drops) 1 drop EYE-BOTH BEDTIME [facility] Last Admin: 05/08/21 19:30 Dose: 1 drop Documented by: GEMINI Metoprolol Succinate (Metoprolol Succinate Er 25 Mg Tab.Er.24h) 25 mg PO DAILY [facility]; Protocol Last Admin: 05/09/21 08:00 Dose: 25 mg Documented by: MARTIN Ondansetron HCl (Ondansetron Hcl 4 Mg/2 Ml Vial) 4 mg IVPUSH Q8H PRN PRN Reason: Nausea and Vomiting Last Admin: 05/09/21 03:22 Dose: 4 mg Documented by: GEMINI Oxycodone HCl (Oxycodone Hcl Er 10 Mg Tab.Er.12h) 10 mg PO BID [facility] Last Admin: 05/09/21 08:00 Dose: 10 mg Documented by: MARTIN Oxycodone HCl (Oxycodone Hcl Immed Release 5 Mg Tablet) 10 mg PO Q4H PRN PRN Reason: Pain, Moderate (Pain Scale 4-6 Pharmacy Consult (Consult Rx Vancomycin Dosing) 1 each MISCELLANE DAILY PRN PRN Reason: Consult order Pravastatin Sodium (Pravastatin Sodium 80 Mg Tablet) 80 mg PO BEDTIME [facility] Last Admin: 05/08/21 19:30 Dose: 80 mg Documented by: GEMINI Sodium Chloride (0.9 % Sodium Chloride Flush 3 Ml Syringe) 3 ml IVFLUSH QSHIFT [facility] Last Admin: 05/09/21 08:01 Dose: Not Given Documented by: MARTIN Non-Admin Reason: IV Running Tamsulosin HCl (Tamsulosin Hcl 0.4 Mg Capsule) 0.4 mg PO DAILY [facility] Last Admin: 05/09/21 08:00 Dose: 0.4 mg Documented by: MARTIN Vitamin D (Cholecalciferol (Vitamin D3) 25 Mcg Tablet) 25 mcg PO DAILY [facility] Last Admin: 05/09/21 08:00 Dose: 25 mcg Documented by: MARTIN Warfarin Sodium (Warfarin Sodium 2.5 Mg Tablet) 2.5 mg PO DAILY@1800 [facility] Labs CBC & Chem 7: 05/09/21 06:07 05/09/21 06:07 Labs: Laboratory Results - last 24 hr 05/09/21 05/09/21 05/09/21 06:07 06:07 06:07 MCV 86.9 MCH 27.7 MCHC 31.9 RDW 14.9 Plt Count 151 L D MPV 11.1 Immature Gran % (Auto) 0.5 H Neut % (Auto) 83.2 H Lymph % (Auto) 7.7 L [place] % (Auto) 8.5 Eos % (Auto) 0.0 Baso % (Auto) 0.1 Lymph # (Auto) 1.0 L [place] # (Auto) 1.1 Eos # (Auto) 0.0 Baso # (Auto) 0.0 Abs Immat Gran (auto) 0.07 H Absolute Neuts (auto) 10.9 H Absolute Nucleated RBC 0.000 Nucleated RBC % (auto) 0.0 PT 13.6 H INR 1.2 H Anion Gap 9 L Estim Creat Clear Calc 58.6 Estimated GFR > 60 Fasting Glucose 154 H D Calcium 8.6 D Assessment and Plan (1) Atrial fibrillation: Status: Acute (2) Status post revision of total replacement of right knee: Status: Acute Assessment and Plan: 76yo M with hx of ?infected prosthesis of R knee who underwent revision of R knee arthroplasty 05/08/21.? Medical consultation for management of comorbid conditions. # history of infected R TKA - s/p resection and placement of spacer 02/19/21, s/p revision arthroplasty 05/08/21 # pAF - continue metoprolol succinate - resume warfarin, goal INR 2-3 # HLD - continue pravastatin # BPH - continue tamsulosin [does not take doxazosin anymore] # VTE ppx - warfarin Quality Stroke Does the patient have a stroke diagnosis?: No VTE Prior VTE?: No VTE Risk Level:: Surgical - very high VTE Device Contraindication: N/A - Device Ordered VTE Drug Contraindication: N/A - Med Ordered
--- NOTE | 2021-05-09 11:09 | HO.POSTANES ---
Post Anesthesia Evaluation Post Anesthesia Evaluation Vital Signs: Vital Signs Temp Pulse Resp BP Pulse Ox 05/09/21 07:39 97.4 F 72 16 152/67 H 97 05/09/21 03:41 96.8 F 65 18 141/67 H 95 05/08/21 23:47 96.8 F 69 18 132/61 94 Anesthesia: Spinal and Nerve Block Mental Status: Awake Pain Control: Satisfactory Nausea/Vomiting: None Hydration: Adequate Anesthesia-Related Issues: No Anes. Related Issues
[2021-05-09 11:29] VITALS: BP 102/56; PULSE 60; RESP 17; TEMP 36.7; O2SAT 94
--- NOTE | 2021-05-09 14:21 | MHC.CM.PN ---
CM MET WITH PT WHO REPORTS HE LIVES AT HOME WITH HIS AND IS INDEPENDENT WITH CARE PT REPORTS HE USES A [facility]ALK[facility] AT HOME AND HAS NO SERVICES PT HAS A HCP AND PCP ON FILE HE CONFIRMS ACCURATE PTS HCP IS HIS , TERRY [phone] PTS PCP IS GENARO CABRAL. IMM DELIVERED CURRENT DC PLAN IS HOME WITH [facility] FOR HOME PT PT WILL SELF ARRANGE TRANSPORTATION
[2021-05-09 15:09] VITALS: BP 125/60; PULSE 50; RESP 14; TEMP 36.1; O2SAT 91
[2021-05-09] MEDS: Warfarin Sodium 2.5 MG TABLET PO (17:29)
[2021-05-09 19:08] VITALS: BP 140/65; PULSE 59; RESP 16; TEMP 36.2; O2SAT 96
[2021-05-09] MEDS: Pravastatin Sodium 80 MG TABLET PO (20:02)
[2021-05-09] MEDS: 0.9 % Sodium Chloride Flush 3 ML SYRINGE IVFLUSH (20:02)
[2021-05-09] MEDS: Latanoprost 0.005 % Ophth Sol 2.5 ML DROPS 1 DROP EYE-BOTH (20:03)
[2021-05-09] MEDS: Acetaminophen 325 MG TABLET 650 MG PO (20:05)
[2021-05-10] VITALS: BP 122/60; PULSE 54; RESP 16; TEMP 36.5; O2SAT 97
[2021-05-10] MEDS: Dextrose 5 % and 0.45 % NaCl 1,000 ML 80 ML IVCONT (00:07)
[2021-05-10] MEDS: ondansetron HCL 4 MG/2 ML VIAL IVPUSH (01:55)
[2021-05-10 03:41] VITALS: BP 133/61; PULSE 60; RESP 17; TEMP 36.4; O2SAT 94
[2021-05-10 06:07] LABS: MANUAL DIFF FLAG NO
[2021-05-10 06:08] LABS: Basophils Percent Auto 0.4 % (0-2); Eosinophils Absolute Auto 0.3 X10*3/uL (0.0-0.4); Eosinophils Percent Auto 4.6 % (0-4); Hemoglobin 8.5 g/dl (14.0-18.0); Imm Gran Abs Auto 0.03 X10*3/uL (0.00-0.03); Imm Gran Pct Auto 0.4 % (0.0-0.4); Lymphocytes Percent Auto 14.1 % (20-40); Mean Corpuscular HGB Conc 31.5 g/dl (31.0-36.0); Mean Corpuscular Hemoglobin 27.8 pg (27.0-33.0); Mean Corpuscular Volume 88.2 fL (80.0-98.0); Mean Platelet Volume 11.9 fL (9.4-12.4); Monocytes Percent Auto 13.2 % (2-11); Neutrophils Absolute Auto 4.9 x10*3/uL (2.0-8.3); Neutrophils Percent Auto 67.3 % (45-73); Platelet Count 129 X10*3/uL (160-400); Red Blood Count 3.06 X10*6/uL (4.60-5.80); Red Cell Distribution Width 15.2 % (11.0-16.0); White Blood Count 7.2 X10*3/uL (4.8-10.8)
[2021-05-10 06:16] LABS: INTERNATIONAL NORM RATIO 1.2 (0.9-1.1); Prothrombin Time 13.4 SEC (9.9-13.0)
[2021-05-10 06:34] LABS: Anion Gap 9 (12-20); Blood Urea Nitrogen 24 mg/dL (9-16); Calcium 8.3 mg/dL (8.4-10.2); Carbon Dioxide 28 mmol/L (22-29); Chloride 108 mmol/L (96-108); Creatinine Clr Calc Pharmacy 53.6; Estimated Glomerular Filt Rate > 60; Glucose Fasting 99 mg/dL (60-99); Potassium 4.6 mmol/L (3.3-5.1); Sodium 140 mmol/L (135-145)
[2021-05-10] MEDS: oxyCODONE HCl ER 10 MG TAB.ER.12H PO (07:05)
[2021-05-10] MEDS: 0.9 % Sodium Chloride Flush 3 ML SYRINGE IVFLUSH (07:05)
[2021-05-10] MEDS: Cholecalciferol (Vitamin D3) 25 MCG TABLET PO (07:06)
[2021-05-10] MEDS: oxyCODONE HCl Immed Release 5 MG TABLET 10 MG PO ×2 (07:06→11:28)
[2021-05-10] MEDS: Metoprolol Succinate ER 25 MG TAB.ER.24H PO (07:06)
[2021-05-10] MEDS: Celecoxib 200 MG CAPSULE PO (07:06)
[2021-05-10] MEDS: Tamsulosin HCL 0.4 MG CAPSULE PO (07:06)
[2021-05-10] MEDS: Dorzolamide/Timolo 2.23%/0.68% 10 ML DRBTL 1 DROP EYE-BOTH (07:06)
[2021-05-10] MEDS: Brimonidine Tartrate 0.2% Oph 5 ML BOTTLE 1 DROP EYE-BOTH (07:06)
[2021-05-10 08:00] VITALS: BP 141/63; PULSE 56; RESP 18; TEMP 36.4; O2SAT 95
[2021-05-10 09:48] VITALS: BP 141/63; PULSE 56; O2SAT 95
[2021-05-10 09:52] VITALS: BP 141/63; PULSE 56; O2SAT 95
--- NOTE | 2021-05-10 10:13 | P.PNIM_ITS ---
Subjective Subjective Date of Service: 05/10/21 Interval History: no chest pain or dyspnea postop pain well-controlled back on warfarin 2.5 mg/d Review of Systems Review of Systems: Yes all other systems are reviewed and are negative Physical Exam Vital Signs: Vital Signs: Last Vital Signs Temp 97.5 F 05/10/21 08:00 Pulse 56 05/10/21 09:52 Resp 18 05/10/21 08:00 BP 141/63 H 05/10/21 09:52 Pulse Ox 95 05/10/21 09:52 BMI result Body Mass Index 24.9 Gen: in no acute distress HEENT: sclera anicteric, moist mucus membranes Neck: supple Lungs: clear to auscultation bilaterally Heart: regular rate and rhythm, no murmurs Abd: soft, non-tender, non-distended Ext: no edema Skin: warm/well-perfused, R knee dressing dry Neuro: alert and oriented x3, no focal findings Psych: appropriate affect Objective Data Active Medications Acetaminophen (Acetaminophen 325 Mg Tablet) 650 mg PO Q6H PRN PRN Reason: Pain, Mild (Pain Scale 1-3) Last Admin: 05/09/21 20:05 Dose: 650 mg Documented by: GEMINI Acetaminophen (Acetaminophen 325 Mg Tablet) 650 mg PO Q6H PRN PRN Reason: Pain, Mild (Pain Scale 1-3) Brimonidine Tartrate (Brimonidine Tartrate 0.2% Oph 5 Ml Bottle) 1 drop EYE- BOTH BID [facility] Last Admin: 05/10/21 07:06 Dose: 1 drop Documented by: MARIELLE Celecoxib (Celecoxib 200 Mg Capsule) [address] [facility] Last Admin: 05/10/21 07:06 Dose: 200 mg Documented by: MARIELLE Dorzolamide/Timolol (Dorzolamide/Timolo 2.23%/0.68% 10 Ml Drbtl) 1 drop EYE- BOTH BID [facility] Last Admin: 05/10/21 07:06 Dose: 1 drop Documented by: MARIELLE Hydromorphone HCl (Hydromorphone Hcl 0.5 Mg/0.5 Ml Syringe) 0.5 mg IVPUSH Q3H PRN; Protocol PRN Reason: Pain, Severe (Pain Scale 7-10) Dextrose/Sodium Chloride (D51/2ns) 1,000 mls @ 80 mls/hr IVCONT .[id number] [facility] Last Admin: 05/10/21 00:07 Dose: 80 mls/hr Documented by: GEMINI Latanoprost (Latanoprost 0.005 % Ophth Loretta 2.5 Ml Drops) 1 drop EYE-BOTH BEDTIME [facility] Last Admin: 05/09/21 20:03 Dose: 1 drop Documented by: GEMINI Metoprolol Succinate (Metoprolol Succinate Er 25 Mg Tab.Er.24h) [address] [facility]; Protocol Last Admin: 05/10/21 07:06 Dose: 25 mg Documented by: MARIELLE Ondansetron HCl (Ondansetron Hcl 4 Mg/2 Ml Vial) 4 mg IVPUSH Q8H PRN PRN Reason: Nausea and Vomiting Last Admin: 05/10/21 01:55 Dose: 4 mg Documented by: GEMINI Oxycodone HCl (Oxycodone Hcl Er 10 Mg Tab.Er.12h) [address] [facility] Last Admin: 05/10/21 07:05 Dose: 10 mg Documented by: MARIELLE Oxycodone HCl (Oxycodone Hcl Immed Release 5 Mg Tablet) 10 mg PO Q4H PRN PRN Reason: Pain, Moderate (Pain Scale 4-6 Last Admin: 05/10/21 07:06 Dose: 10 mg Documented by: MARIELLE Pharmacy Consult (Consult Rx Vancomycin Dosing) 1 each MISCELLANE DAILY PRN PRN Reason: Consult order Pravastatin Sodium (Pravastatin Sodium 80 Mg Tablet) [address] [facility] Last Admin: 05/09/21 20:02 Dose: 80 mg Documented by: GEMINI Sodium Chloride (0.9 % Sodium Chloride Flush 3 Ml Syringe) [address] [facility] Last Admin: 05/10/21 07:05 Dose: 3 ml Documented by: MARIELLE Tamsulosin HCl (Tamsulosin Hcl 0.4 Mg Capsule) 0.[address] [facility] Last Admin: 05/10/21 07:06 Dose: 0.4 mg Documented by: MARIELLE Vitamin D (Cholecalciferol (Vitamin D3) 25 Mcg Tablet) [address] [facility] Last Admin: 05/10/21 07:06 Dose: 25 mcg Documented by: MARIELLE Warfarin Sodium (Warfarin Sodium 2.5 Mg Tablet) 2.5 mg PO DAILY@1800 [facility] Last Admin: 05/09/21 17:29 Dose: 2.5 mg Documented by: DABJina Labs CBC & Chem 7: 05/10/21 05:41 05/10/21 05:41 Labs: Laboratory Results - last 24 hr 05/10/21 05/10/21 05/10/21 05:41 05:41 05:41 MCV 88.2 MCH 27.8 MCHC 31.5 RDW 15.2 Plt Count 129 L MPV 11.9 Immature Gran % (Auto) 0.4 Neut % (Auto) 67.3 Lymph % (Auto) 14.1 L [place] % (Auto) 13.2 H Eos % (Auto) 4.6 H Baso % (Auto) 0.4 Lymph # (Auto) 1.0 L [place] # (Auto) 1.0 Eos # (Auto) 0.3 Baso # (Auto) 0.0 Abs Immat Gran (auto) 0.03 Absolute Neuts (auto) 4.9 Absolute Nucleated RBC 0.000 Nucleated RBC % (auto) 0.0 PT 13.4 H INR 1.2 H Anion Gap 9 L Estim Creat Clear Calc 53.6 Estimated GFR > 60 Fasting Glucose 99 D Calcium 8.3 L Assessment and Plan (1) Atrial fibrillation: Status: Acute (2) Status post revision of total replacement of right knee: Status: Acute Assessment and Plan: 76yo M with hx of infected prosthesis of R knee who underwent revision of R knee arthroplasty 05/08/21.? Medical consultation for management of comorbid conditions. # history of infected R TKA - s/p resection and placement of spacer 02/19/21, s/p revision arthroplasty 05/08/21 # pAF - continue metoprolol succinate - resume warfarin, goal INR 2-3, recheck next week as outpt # HLD - continue pravastatin # BPH - continue tamsulosin [does not take doxazosin anymore] # VTE ppx - warfarin Quality Stroke Does the patient have a stroke diagnosis?: No VTE Prior VTE?: No VTE Risk Level:: Surgical - very high VTE Device Contraindication: N/A - Device Ordered VTE Drug Contraindication: N/A - Med Ordered
--- NOTE | 2021-05-10 12:44 | MHC.CM.PN ---
nurse case finisher note electronic medical record reviewed along , tried to meet with patient this am x3 he was being evaluated by the physical therapist and then doing stairs with the physical therapsit , then asked me to come back as he was washing up . patietn discharge was finalized before i met with him and his granddaUGHTER , PATIENT LIVES WITH HOS , HE HAS NO SERVICES IN THE HOME , NO DME SERVICES , HE HAS A HEALTH CARE PROXY NAMING HIS . CONFIRMED PATIENT [facility]PC[facility]O CABRAL, DISCHARGE PLAN HOME WITH NEW REFERRAL TO THE [facility] FOR HOME PHYSICAL THERAPY TO START TOMORROW TRANSPORTATION FAMILY
--- NOTE | 2021-05-10 12:59 | PM.DS ---
DS: Providers Provider Date of Service: 05/10/21 Date of admission: 05/08/21 06:13 Primary care physician: Glenny Henderson PA-C Consults: 05/08/21 12:46 Consult to Hospitalist Routine Consulting Provider: Hospitalist Reason For Exam: routine medical management DS: Diagnosis Discharge Diagnosis (1) Atrial fibrillation: Status: Acute (2) Status post revision of total replacement of right knee: Status: Acute DS: Summary Hospital Course Hospital Course: The patient underwent a successful Revision right total knee arthroplasty, was transferred to PACU and then to the floor to recover. During their stay, their vitals were stable, afebrile at 97.5. Labs were unremarkable, H/H 8.5/27.0 . POD 1 he was re-started on his Coumadin, 2.5mg tabs qd. INR on discharge 1.2. He received PT services twice a day. Prior to discharge, his dressing was change, incision clean dry and intact, new Aquacel dressing applied and the plan was to be discharged home with VNA services. INR goal 2-3 Time Spent with Patient Time attestation: Total time spent providing and/or coordinating discharge services: Discharge coordination time: Less than 30 minutes Quality: Stroke Does the patient have a stroke diagnosis?: No Physical Exam Vital Signs: Vital Signs: Last Vital Signs Temp 97.5 F 05/10/21 08:00 Pulse 56 05/10/21 09:52 Resp 18 05/10/21 08:00 BP 141/63 H 05/10/21 09:52 Pulse Ox 95 05/10/21 09:52 BMI result Body Mass Index 24.9 Const: General: cooperative, healthy appearing and no acute distress Resp: Effort & Inspection: normal respiratory effort and able to speak in complete sentences Cardio: Rate: regular rate Peripheral pulses: Peripheral pulses 2+ throughout GI: Palpation (GI): Soft to palpation Skin: General skin exam: no rashes or lesions noted Extrem: Other: incision clean dry and intact. [place] intact. No erythema or joint effusion. Calf supple nontender. Neurovascularly intact. DS: Data Data Completed and Pending Completed studies during hospitalization [Text1]: Procedures Insertion of Infusion Device into Superior Vena Cava, Percutaneous Approach (02/19/21) Insertion of Spacer into Right Knee Joint, Open Approach (02/19/21) Removal of Synthetic Substitute from Right Knee Joint, Open Approach (02/19/21) Labs on day of discharge: Laboratory Results - last 24 hr 05/10/21 05/10/21 05/10/21 05:41 05:41 05:41 WBC 7.2 RBC 3.06 L Hgb 8.5 L Hct 27.0 L MCV 88.2 MCH 27.8 MCHC 31.5 RDW 15.2 Plt Count 129 L MPV 11.9 Immature Gran % (Auto) 0.4 Neut % (Auto) 67.3 Lymph % (Auto) 14.[address] [place] % (Auto) 13.2 H Eos % (Auto) 4.6 H Baso % (Auto) 0.4 Lymph # (Auto) 1.[address] [place] # (Auto) 1.0 Eos # (Auto) 0.3 Baso # (Auto) 0.0 Abs Immat Gran (auto) 0.03 Absolute Neuts (auto) 4.9 Absolute Nucleated RBC 0.000 Nucleated RBC % (auto) 0.0 PT 13.4 H INR 1.2 H Sodium 140 Potassium 4.6 Chloride 108 Carbon Dioxide 28 Anion Gap 9 L BUN 24 H Creatinine 1.06 Estim Creat Clear Calc 53.6 Estimated GFR > 60 Fasting Glucose 99 D Calcium 8.3 L Discharge Plan Discharge Patient Disposition: Home Health Service Discharge Diagnosis: s/p rt tka Referrals: Louisa GEORGE [Outside] - 1 Day (LOUISA GEORGE for home physical therapy to start tomorrow [facility] Devante Rinaldi PA-C [[employer]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] - 2 Weeks (05/23/21 11:30 [facility] Devante Rinaldi PA-C) Discharge Medications: New acetaminophen 325 mg Tablet 650 mg PO Q6H PRN (Reason: Pain, Mild (Pain Scale 1-3)) 30 Days Qty: 240 RF: 0 ondansetron HCl [Zofran] 4 mg tablet 4 mg PO Q6H PRN (Reason: nausea and vomiting) 7 Days Qty: 28 RF: 0 oxycodone 10 mg tablet 10 mg PO Q4H PRN (Reason: Pain, Moderate (Pain Scale 4-6) 7 Days Qty: 42 RF: 0 Continued metoprolol succinate 25 mg tablet extended release 24 hr 25 mg PO DAILY Qty: 90 RF: 3 tamsulosin 0.4 mg capsule 1 cap PO DAILY RF: 0 cholecalciferol (vitamin D3) [Vitamin D3] 25 mcg (1,000 unit) Capsule 25 mcg PO DAILY RF: 0 doxazosin 2 mg Tablet 8 mg PO DAILY 30 Days Qty: 120 RF: 0 pravastatin 80 mg tablet 80 mg PO BEDTIME RF: 0 warfarin 2.5 mg tablet 2.5 mg PO DAILY RF: 0 latanoprost 0.005 % drops 1 drp ophthalmic (eye) BEDTIME RF: 0 brimonidine 0.2 % drops 1 drp ophthalmic (eye) BID RF: 0 dorzolamide-timolol 22.3-6.8 mg/mL drops 1 drp ophthalmic (eye) BID RF: 0 Discontinued acetaminophen 325 mg Tablet 650 mg PO Q6H PRN (Reason: Pain, Mild (Pain Scale 1-3)) 30 Days Qty: 240 RF: 0 Discharge Orders: Discharge Order (Routine); Ordered 05/10/21 Ordered By: Devante Rinaldi Diet: regular diet Activity on Discharge: Use cane or walker Stand Alone Forms: Patient Portal Discharge page Care Plan Goals: Restore function of joint Health Concerns: none Plan of Treatment: Physical Therapy Pain management DVT prophylaxis Assessment: Physical Therapy for Total knee arthroplasty: gait training, ROM 0-12, quad strength Limit stair climbing No showering, no tub bath-keep dressing clean, dry and intact No driving x6 weeks Coumadin INR goal 2-3 - please check your INR Thursday05/13/21 Follow up with [facility] [place] 2 weeks Discharge Date/Time: 05/10/21 13:03
--- NOTE | 2021-05-14 08:00 | P.F2F_ITS ---
Service Date Service Date: 05/14/21 Reasons for Services Signs and symptoms assessed: s/p rt TKA revision Reason for physical therapy: home safety and mobility, therapeutic exercises, restore joint function, gait/transfer training and ADL training Reason for occupational therapy: home safety and mobility, therapeutic exercises, restore joint function, gait/transfer training and ADL training Homebound: Leaving the home is medically contraindicated at this time without the asist of a device and/or another person due th the listed conditions above and below. Reason homebound: unsteady gait / fall risk, leg weakness, pain with ambulation, pain with transfers, poor balance / fall risk and unable to drive Homebound supporting statement: Pt. is considered homebound due to recent surgery. Unable to drive, poor balance, poor gait mechanics. Certification: Based on the above findings, I certify that this patient is confined to the home and needs intermittent [facility] care, physical therapy and/or speech therapy, or continues to need occupational therapy. The patient is under my care, and I have initiated the establishment of the plan of care. The patient will be followed by a physician who will periodically review the plan of care.
== END 2021-05-10 13:03 | disposition home health service (06) | DRG 468 ==
LOC: HO.SSSA 06:16 → HO.S3 11:26
PROVIDERS: Family Medicine; Nurse Practitioner; Physician Assistant; Admitting Provider Orthopaedic Surgery; PCP Physician Assistant Medical; Visit Provider Orthopaedic Surgery
PROC: 0SPC0JZ Removal of Synthetic Substitute from Right Knee Joint, Open Approach (ICD-10-PCS; CPT 27487; principal; 2021-05-08 07:30)
DX: T84.53XA Infection and inflammatory reaction due to internal right knee prosthesis, initial encounter (principal); I48.0 Paroxysmal atrial fibrillation; E78.5 Hyperlipidemia, unspecified; N40.0 Benign prostatic hyperplasia without lower urinary tract symptoms; Z20.822 Contact with and (suspected) exposure to COVID-19; Z79.899 Other long term (current) drug therapy
CPT/HCPCS: 36415; 73560; 80048; 85025; 85610; 86850; 86900; 86901; 87635; 97110; 97116; 97162; 97530; C1713; C1776; G0180; J1100; J1170; J1885; J2250; J2405; J3010; J3370

== ENCOUNTER → 2021-05-23 11:08 | Outpatient (BNVA) | payer MEDICARE, SELFPAY | PROVIDERS: PCP Physician Assistant Medical; Visit Provider Physician Assistant | DX: Z47.1 Aftercare following joint replacement surgery (principal); Z96.651 Presence of right artificial knee joint | CPT/HCPCS: 99212 ==

== ENCOUNTER 2021-05-27 10:01 | Outpatient (REF) | payer MEDICARE, SELFPAY ==
--- NOTE | ~2021-05-27 | US_ITS ---
EXAMINATION: US VENOUS ULTRASOUND WITH DOPPLER LOWER EXTREMITY, RIGHT CLINICAL INFORMATION: Pain. Post knee replacement April 2021 COMPARISON: None TECHNIQUE: Ultrasound of the deep veins is performed from the hip to the calf with compression sonography and color and pulse Doppler assessment. Spectral analysis with color-flow imaging is performed. FINDINGS: There is normal venous compression and respiratory variation and augmented flow. The visualized common femoral vein, superficial femoral vein, profunda femoral vein, popliteal vein, and the trifurcation region shows no evidence of deep venous thrombosis. There is no significant popliteal fossa cyst. If the patient's symptoms persist, followup ultrasound in 5 days 7 days might be of value to exclude proximal propagation from a non-visualized calf vein. US/US venous duplex LE RT IMPRESSION: No DVT demonstrated in the right lower extremity.
[2021-05-27 11:38] LABS: INTERNATIONAL NORM RATIO 1.8 (0.9-1.1); Prothrombin Time 20.4 SEC (9.9-13.0)
== END 2021-05-27 10:02 | disposition home or self-care (01) ==
LOC: HO.HMGCX 10:01
PROVIDERS: Visit Provider Physician Assistant
DX: M79.661 Pain in right lower leg (principal); R60.9 Edema, unspecified; Z96.651 Presence of right artificial knee joint
CPT/HCPCS: 36415; 85610; 93971

== ENCOUNTER 2021-06-06 11:18 | Outpatient (REF) | payer MEDICARE, SELFPAY ==
--- NOTE | ~2021-06-06 | XR_ITS ---
EXAMINATION: XR KNEE STANDING BILATERAL XR KNEE RIGHT CLINICAL INFORMATION: Knee pain COMPARISON: 02/11/2021 and 05/08/2021 TECHNIQUE: AP standing view both knees Right knee, 2 views FINDINGS: At the right knee, the constrained components of the total knee arthroplasty are in stable position compared to 05/08/2021. No osteolysis around the hardware. No periprosthetic fracture. The patella is in normal position. There is postoperative soft tissue swelling of the anterior knee. Rucey-vn-[id number] knee joint effusion is suspected. The evaluation for joint effusion is partially limited by the soft tissue swelling of the anterior knee. There are postoperative micronodular metallic fragments at the posterior knee, status post removal of previously observed arthroplasty hardware. No interval development of osseous erosion or periostitis. Chronic chondrocalcinosis is observed at the left knee. The left knee tibiofemoral joint spaces are maintained. An old osteochondral body is present in the medial knee joint. XR/XR knee standing BI IMPRESSION: * No evidence of loosening of components of the revised right total knee arthroplasty. No periprosthetic fracture. * Persistent postoperative soft tissue swelling of the anterior knee, and a postoperative knee joint effusion is suspected.
--- NOTE | ~2021-06-06 | XR_ITS ---
EXAMINATION: XR KNEE STANDING BILATERAL XR KNEE RIGHT CLINICAL INFORMATION: Knee pain COMPARISON: 02/11/2021 and 05/08/2021 TECHNIQUE: AP standing view both knees Right knee, 2 views FINDINGS: At the right knee, the constrained components of the total knee arthroplasty are in stable position compared to 05/08/2021. No osteolysis around the hardware. No periprosthetic fracture. The patella is in normal position. There is postoperative soft tissue swelling of the anterior knee. Ikjok-kv-ptfsquka knee joint effusion is suspected. The evaluation for joint effusion is partially limited by the soft tissue swelling of the anterior knee. There are postoperative micronodular metallic fragments at the posterior knee, status post removal of previously observed arthroplasty hardware. No interval development of osseous erosion or periostitis. Chronic chondrocalcinosis is observed at the left knee. The left knee tibiofemoral joint spaces are maintained. An old osteochondral body is present in the medial knee joint. XR/XR knee RT 2V IMPRESSION: * No evidence of loosening of components of the revised right total knee arthroplasty. No periprosthetic fracture. * Persistent postoperative soft tissue swelling of the anterior knee, and a postoperative knee joint effusion is suspected.
== END 2021-06-06 11:19 | disposition home or self-care (01) ==
LOC: HO.HOSX 11:18
PROVIDERS: Visit Provider Orthopaedic Surgery
DX: Z47.1 Aftercare following joint replacement surgery (principal); Z96.651 Presence of right artificial knee joint
CPT/HCPCS: 73560; 73565; 99212

== ENCOUNTER → 2021-06-24 12:53 | Outpatient (BNVA) | payer MEDICARE, SELFPAY | PROVIDERS: PCP Physician Assistant Medical; Visit Provider Physician Assistant | DX: Z47.89 Encounter for other orthopedic aftercare (principal); Z96.651 Presence of right artificial knee joint | CPT/HCPCS: 99212 ==

== ENCOUNTER 2021-07-17 10:00 | Outpatient (RCR) | payer MEDICARE, SELFPAY ==
--- NOTE | 2021-05-23 12:54 | MHC.PT.EP ---
[facility] [place] Office [place] Office [place] Office [address] Polina Martinez [address] [phone] F: [phone] F: [phone] F: [phone] F: [phone] Physical Therapy Plan of Care Date of Evaluation: Date of Surgery: 05/08/21 Diagnosis: revision right knee arthroplasty Assessment: 76 YO MALE REF TO PT S/P Rt TKA REVISION ON 05/08/21- HE HAD H/O OF PRIOR Rt TKA , WHICH DUE TO AN INFECTION WAS REPLACED W A SPACER- Pt RESIDES W AND GRANDTR- HE IS MOTIVATED FOR PT/ REHAB, HE IS ON WARFARIN FOR HIS ATRIAL FIB. OBJECTIVE FINDINGS INCLUDE Rt KNEE EXTENSION LAG, SUPINE Rt KNEE EXT -25*, FLEX 119*; DECR STRENGTH IN Rt LE -ESPEC QUAD AND GLUTE; DECR ROM IN Rt ANKLE, AND MILD GENERAL Rt KNEE SORENESS AND HEALING Rt ANT KNEE INCISION. FUNCTIONALLY, Pt HAS COMPENSATORY GAIT DUE TO Rt KNEE EXTEN DEFICITS, GAIT W CANE SHORT DISTANCES, DECR VEDA TO STANDING, ALTERED MECH W STAIR MANAGEMENT. Pt IS A GREAT CANDIDATE FOR PT TO ADDRESS THE ABOVE FINDINGS, AND GUIDE HIM ALONG HIS POST OP COURSE TO MAXIMIZE FUNCTIONAL INDEP. Frequency and Duration: The patient will be seen 2 x WK x 5 WKS Short Term Goals: Pt DEMON PROPER Rt QUAD SET IN 1 WK Pt'S Rt KNEE PAIN DECREASED TO 2-3/10 IN 2 WKS Pt DEMON AROM Rt KNEE EXTENSION TO 0* IN 2 WKS Pt DEMO IMPROVED GAIT MECH W CANE AD ON LEVEL GROUND AND STAIRS IN 2 WKS Renal Medicine Physician Goals: Pt INDEP W HEP PROGRESSION AND SELF-SX MGMT STRATEGIES IN 5 WKS Pt RESUME REG ADLs EVIDENT W IMPROVED LEFI SCORE BY 8-10 POINTS (AT EVAL ) IN 6 WKS Pt INCR LE STRENGTH BY 1 GRADE IN 5 WKS Treatment Plan: Modalities to reduce pain, spasms and effusion. Manual therapy to restore motion and function. Therapeutic exercise to improve strength and flexibility. Neuromuscular re-education for posture and balance. Therapeutic activities to return to functional activities of daily living. Electronically signed by: Nikkie Marks PT Please sign and return to therapist. Thank you for your referral.
--- NOTE | 2021-08-20 11:38 | MHC.PT.DC ---
[facility] [place] Office [place] Office [place] Office [address] Polina Martinez [address] [phone] F: [phone] F: [phone] F: [phone] F: [phone] Physical Therapy Discharge Report Diagnosis: revision right knee arthroplasty Date of Surgery: 05/08/21 Date of Evaluation: 05/23/21 Date of Discharge: 08/20/21 Treatments to Date: 14 Cancellations to Date: 2 No Shows to Date: 0 Discharge Status: Improved Function Independent with HEP Patient Elected to Stop Discharge Summary: Pt VOICED CONCERNS RE HIS SPOUSE AND PREFERS TO PERF HEP ON HIS OWN- WE ENCOURAGED CONT IN PT AT SOME LEVEL HE HAS (+) WEAKNESS IN Rt QUAD. HE HAS SHOWN PROGRESS W FUNCTIONAL MOB , GAIT WITH A CANE, RECIPROCAL STAIR MANAGEMENT, AND HAS A GOOD COMPREHENSION OF IMPORTANCE OF HEP CONTINUITY - Rt KNEE AROM CONT TO IMPROVE (-4* TO 125*), REINFORCED HOME STATIC AND DYNAMIC STRETCHES Electronically signed by: Nikkie Marks,PT Please sign and return to therapist. Thank you for your referral.
== END 2021-08-20 11:43 | disposition home or self-care (01) ==
LOC: HO.PT 10:00
PROVIDERS: Visit Provider Physician Assistant
DX: Z96.651 Presence of right artificial knee joint (principal)
CPT/HCPCS: 97014; 97110; 97112; 97116; 97140; 97162; 97530

== ENCOUNTER → 2021-08-05 13:48 | Outpatient (BNVA) | payer MEDICARE, SELFPAY | PROVIDERS: PCP Physician Assistant Medical; Visit Provider Orthopaedic Surgery | DX: Z47.1 Aftercare following joint replacement surgery (principal); Z96.651 Presence of right artificial knee joint | CPT/HCPCS: 99212 ==

== ENCOUNTER → 2021-09-03 08:20 | Outpatient (BNVA) | payer MEDICARE, SELFPAY | PROVIDERS: PCP Physician Assistant Medical; Visit Provider Internal Medicine | DX: I48.0 Paroxysmal atrial fibrillation (principal); I25.10 Atherosclerotic heart disease of native coronary artery without angina pectoris | CPT/HCPCS: 93005; 99212 ==

== ENCOUNTER 2021-09-16 07:18 | Outpatient (REF) | payer MEDICARE, SELFPAY | END 2021-09-16 07:19 | disposition home or self-care (01) | LOC: HO.HOSX 07:18 | PROVIDERS: Visit Provider Orthopaedic Surgery | DX: Z13.89 Encounter for screening for other disorder (principal) ==

== ENCOUNTER 2021-09-20 13:07 | Inpatient (IN) | payer MEDICARE, SELFPAY ==
--- NOTE | ~2021-09-20 | CT_ITS ---
EXAMINATION: CT CERVICAL SPINE WITHOUT CONTRAST; UNENHANCED CT OF THE HEAD. CLINICAL INFORMATION: Fall. COMPARISON: CT chest 09/20/2021. TECHNIQUE: Routine unenhanced CT of the head with multiple coronal and sagittal reformatted images; routine unenhanced CT of the cervical spine with multiple coronal and sagittal reformatted images. This CT examination was performed using dose optimization techniques as appropriate, variously including the following: *Automated exposure control *Adjustment of mA and/or kV according to patient size (this includes techniques or standardized protocols for targeted exams where dose is matched to indication/reason for exam; i.e. extremities or head) *Use of iterative reconstruction technique DLP: 1489 mGy-cm FINDINGS: CT head: Intravascular opacification consistent with the presence of recent IV contrast administration is noted. No intracranial hemorrhage, tumors or acute appearing infarcts are noted. Mild diffuse commensurate prominence of ventricles and sulci is visualized. Moderate segmental calcific atherosclerosis of the cavernous portions of the internal carotid arteries and portions of the left and right intradural segments of the vertebral arteries. The orbits and globes are normal in appearance. The maxillary sinuses are partially included in the image [id number] and near complete opacification the visualized right maxillary sinus with intermediate high density material is noted mild mucosal thickening is visualized in the left maxillary sinus. No mastoid or middle ear cavity effusions noted. The nasal bones are intact. Within the visualized maxillofacial region, no soft tissue inflammatory changes noted. Partial opacification of the posterior aspect of the sphenoid sinus is identified. Lytic foci are present in the squamous portion of the left temporal bone and left parietal bone. CT cervical spine: No fractures or acute appearing subluxations identified. Diffuse osteopenia is noted. A mild-moderate number of scattered subcentimeter rounded lytic appearing foci are present within the visualized vertebral bodies. No vertebral body compression deformities. Lytic foci are noted in the visualized left and right ribs, in particular the posterior segment of the right third rib. Mild bilateral carotid bulb calcific atherosclerosis. CT/CT cervical spine wo con IMPRESSION: CT head: *No acute intracranial abnormalities. *Partially visualized near complete opacification of the right maxillary sinus suspicious for sinusitis. *Lytic foci within the squamous portion of the left temporal bone and left parietal bone. These findings are suspicious for metastatic disease or multiple myeloma. CT cervical spine: *No acute fractures or acute subluxations. *Multiple lytic foci throughout the visualized vertebral bodies and ribs. Findings are suspicious for multiple myeloma or metastatic disease.
--- NOTE | ~2021-09-20 | CT_ITS ---
EXAMINATION: CT LUMBAR SPINE WITHOUT CONTRAST CLINICAL INFORMATION: Fall. COMPARISON: CT chest 09/20/2021 TECHNIQUE: Unenhanced CT of the lumbar spine. Multiple coronal and sagittal reformatted images. This CT examination was performed using dose optimization techniques as appropriate, variously including the following: *Automated exposure control *Adjustment of mA and/or kV according to patient size (this includes techniques or standardized protocols for targeted exams where dose is matched to indication/reason for exam; i.e. extremities or head) *Use of iterative reconstruction technique DLP; 1489 mGy-cm FINDINGS: Within the visualized liver 2 rounded foci, the largest measuring 2.2 cm in diameter noted within the posterior segment of the right lobe of the liver. These lesions are low density (0 Hounsfield units) and are most likely represent simple cysts. Partial visualization is made of multiple rounded low-density lesions within the left and right kidneys which are most likely represent simple cysts do not warrant additional imaging follow-up on the basis of this exam. A horseshoe kidney is present. Moderate scattered aortoiliac calcific atherosclerosis is visualized. No prevertebral soft tissue inflammatory changes are identified. Multiple rounded lytic foci are present throughout the visualized vertebral bodies, sacrum and pelvis and within the visualized ribs. No vertebral body compression deformities are noted. Multilevel Schmorl's node type mild vertebral body endplate deformities are visualized. The visualized sacrum appears intact. No gross arthropathic changes of the sacroiliac joints noted. L3-L4: Mild intervertebral disc space narrowing. L4-L5: Mild intervertebral disc space narrowing and possible mild posterior broad-based disc bulge. CT/CT lumbar spine wo con IMPRESSION: Unenhanced CT of the lumbar spine: *No acute abnormalities identified. *Diffuse skeletal lytic lesions suspicious for metastatic disease or multiple myeloma. *Mild multilevel chronic spondylosis of the lumbar spine. *Partially visualized horseshoe kidney.
--- NOTE | ~2021-09-20 | XR_ITS ---
EXAMINATION: XR SHOULDER, RIGHT CLINICAL INFORMATION: Fall. Limited range of motion. COMPARISON: None TECHNIQUE: AP external rotation, Grashey, scapular Y, and axillary views of the right shoulder. FINDINGS: No acute fracture or dislocation. There are old-appearing right anterior rib fractures. The humeral head is high with respect to the glenoid suggestive of rotator cuff disease. There is arthritis at the acromioclavicular joint. There is maybe mild arthritis at the glenohumeral joint. There are degenerative changes in the greater tuberosity. Soft tissues are normal. XR/XR shoulder RT min 2V IMPRESSION: No acute fracture or dislocation. High humeral head suggestive of rotator cuff disease and arthritis at the acromioclavicular joint.
--- NOTE | ~2021-09-20 | XR_ITS ---
EXAMINATION: XR RIBS, BILATERAL and chest CLINICAL INFORMATION: Fall COMPARISON: Previous chest x-ray July 2018 TECHNIQUE: 3 views of the bilateral ribs and one view of the chest were obtained. FINDINGS: The cardiac and mediastinal contours are normal. The lungs are clear. There is no pleural effusion or pneumothorax. There are multiple old right anterior rib fractures. There is question of a nondisplaced recent anterior right fifth rib fracture. XR/XR ribs BI min 4V w [id number] IMPRESSION: No evidence for acute disease in the chest. Multiple old right anterior rib fractures. Question recent nondisplaced right anterior fifth rib fracture.
--- NOTE | ~2021-09-20 | CT_ITS ---
EXAMINATION: CT CERVICAL SPINE WITHOUT CONTRAST; UNENHANCED CT OF THE HEAD. CLINICAL INFORMATION: Fall. COMPARISON: CT chest 09/20/2021. TECHNIQUE: Routine unenhanced CT of the head with multiple coronal and sagittal reformatted images; routine unenhanced CT of the cervical spine with multiple coronal and sagittal reformatted images. This CT examination was performed using dose optimization techniques as appropriate, variously including the following: *Automated exposure control *Adjustment of mA and/or kV according to patient size (this includes techniques or standardized protocols for targeted exams where dose is matched to indication/reason for exam; i.e. extremities or head) *Use of iterative reconstruction technique DLP: 1489 mGy-cm FINDINGS: CT head: Intravascular opacification consistent with the presence of recent IV contrast administration is noted. No intracranial hemorrhage, tumors or acute appearing infarcts are noted. Mild diffuse commensurate prominence of ventricles and sulci is visualized. Moderate segmental calcific atherosclerosis of the cavernous portions of the internal carotid arteries and portions of the left and right intradural segments of the vertebral arteries. The orbits and globes are normal in appearance. The maxillary sinuses are partially included in the image [id number] and near complete opacification the visualized right maxillary sinus with intermediate high density material is noted mild mucosal thickening is visualized in the left maxillary sinus. No mastoid or middle ear cavity effusions noted. The nasal bones are intact. Within the visualized maxillofacial region, no soft tissue inflammatory changes noted. Partial opacification of the posterior aspect of the sphenoid sinus is identified. Lytic foci are present in the squamous portion of the left temporal bone and left parietal bone. CT cervical spine: No fractures or acute appearing subluxations identified. Diffuse osteopenia is noted. A mild-moderate number of scattered subcentimeter rounded lytic appearing foci are present within the visualized vertebral bodies. No vertebral body compression deformities. Lytic foci are noted in the visualized left and right ribs, in particular the posterior segment of the right third rib. Mild bilateral carotid bulb calcific atherosclerosis. CT/CT head/brain wo con IMPRESSION: CT head: *No acute intracranial abnormalities. *Partially visualized near complete opacification of the right maxillary sinus suspicious for sinusitis. *Lytic foci within the squamous portion of the left temporal bone and left parietal bone. These findings are suspicious for metastatic disease or multiple myeloma. CT cervical spine: *No acute fractures or acute subluxations. *Multiple lytic foci throughout the visualized vertebral bodies and ribs. Findings are suspicious for multiple myeloma or metastatic disease.
--- NOTE | ~2021-09-20 | CT_ITS ---
EXAMINATION: CT CHEST WITH CONTRAST CLINICAL INFORMATION: Chest and back pain. On Coumadin. COMPARISON: Right rib x-rays and thoracic spine x-rays earlier today. TECHNIQUE: Multidetector volumetric CT imaging of the chest was obtained after the administration of 65 mL of Omnipaque 350 intravenous contrast without immediate adverse reactions. Axial MIP volume rendering provided. Sagittal and coronal reformatted images were obtained. This CT examination was performed using dose optimization techniques as appropriate, variously including the following: *Automated exposure control *Adjustment of mA and/or kV according to patient size (this includes techniques or standardized protocols for targeted exams where dose is matched to indication/reason for exam; i.e. extremities or head) *Use of iterative reconstruction technique DLP: 278 mGy-cm FINDINGS: The heart is normal in size. Coronary artery calcifications are present. A small pericardial effusion is noted. Normal caliber thoracic aorta. There is matted lymphadenopathy of the mediastinum and right hilum. Central airways are patent. Filling defect within the right side of the trachea is nonspecific but statistically mucus. The lungs are adequately aerated. Mild emphysematous changes are noted. There is mild biapical scarring present. Suspected scarring within the posterior right lung base. Within the right upper lobe there is a lobulated masslike density which measures approximately 2.3 x 1.2 cm (image 211/554, series 5). This region is directly connected to an airway, nonspecific. There are a few other scattered 1 to 2 mm pulmonary nodules of both lungs, for example a 2 mm nodule of the left upper lobe (image 131). 1 cm pleural-based nodular density of the lateral right lung base is nonspecific but suspected to represent atelectasis (image 401). Visualized portions of the upper abdomen demonstrate numerous hepatic hypodense lesions, some of which demonstrate cystic characteristics, however, many of which are too small to accurately characterize. There is a small cyst of the left kidney with another partially visualized hypodensity of the left kidney which is inaccurately characterized. Diffuse osteopenia. Sclerotic and degenerative changes of the spine are noted. Several lytic lesions are present throughout the thoracic spine, for example a 1.5 cm lytic lesion within the T9 vertebral body. Mild cortical irregularities of the left third, fourth, fifth and sixth ribs suggest old healed fracture. There are also numerous cortical irregularities involving multiple right-sided ribs suggesting old healed fractures. There is evidence of a more subacute fracture of the right lateral seventh and eighth ribs. CT/CT chest w con IMPRESSION: 1. Lobulated density of the right upper lobe which measures approximately 2.3 cm. This may represent an endobronchial lesion or possibly mucus plugging. Neoplasm is suggested given the extensive matted lymphadenopathy within the mediastinum and right hilum. 2. Numerous lytic osseous abnormalities of the thoracic spine. There are also cortical irregularities of numerous bilateral ribs which may represent old healed fractures or possibly pathologic fractures/metastatic disease. 3. Small pericardial effusion. PET imaging likely warranted. Nuclear medicine bone scan may also be warranted. Fleischner guidelines were followed.
--- NOTE | ~2021-09-20 | XR_ITS ---
EXAMINATION: XR THORACOLUMBAR SPINE CLINICAL INFORMATION: Pain post fall COMPARISON: None TECHNIQUE: 3 views of the thoracic spine including swimmer's view FINDINGS: There is mild curvature of the thoracic spine to the left. Bone alignment is otherwise normal. T1 and T2 vertebral bodies are not well visualized. No fracture or dislocation is seen. Disc spaces are normal. Paraspinal soft tissues are normal. XR/XR thoracic spine 2V IMPRESSION: Limited visualization of the proximal thoracic spine. Mild curvature of the thoracic spine to the left. No fracture or dislocation.
--- NOTE | ~2021-09-20 | XR_ITS ---
EXAMINATION: XR SHOULDER, LEFT CLINICAL INFORMATION: Limited range of motion. History of fall. COMPARISON: None TECHNIQUE: 3 views of the left shoulder. FINDINGS: The humeral head is high with respect to the glenoid suggestive of rotator cuff disease. No fracture or dislocation is seen. There is arthritis at the acromioclavicular joint. There may be a os acromiale or soft tissue ossification adjacent to the acromion. XR/XR shoulder LT min 2V IMPRESSION: No fracture or dislocation. High humeral head suggestive of rotator cuff disease and arthritis at the acromio clavicular joint.
[2021-09-20 13:15] VITALS: BP 140/75; PULSE 86; RESP 19; TEMP 36.6; O2SAT 98; BMI 23.5
--- NOTE | 2021-09-20 14:36 | ED.GENADULT ---
HPI - General Adult General Chief complaint: General Medical Stated complaint: rib back inj fall Time Seen by Provider: 09/20/21 14:35 Source: patient Mode of arrival: wheelchair Limitations: no limitations History of Present Illness HPI narrative: Patient presents to the emergency department with his daughter. Reports that 1 month ago while stepping down a single stare in his garage to the car he lost his balance and fell forward striking his chest on to the car. He reportedly has been having trouble with his balance for about 1 year. The following day he was experiencing lateral chest pain to both sides, had an outpatient x-ray obtained from his primary care provider which was reportedly normal. Was told that he had bruising to the ribs. He had a follow-up x-ray recently which he reports was also normal. He was recently given a prescription for oxycodone but noticed no improvement in his pain. Over the last few days he has become increasingly weak, having a hard time getting out of bed. Is experiencing a lower back discomfort and mid upper back pain. Denies lightheadedness, dizziness, neck pain, chest pain, palpitations, shortness of breath, difficulty breathing, cough, nausea, vomiting, abdominal pain, dysuria, urinary frequency. Patient with a remote history of tobacco abuse but quit many years ago. Related Data Home Medications Medication Instructions Recorded Confirmed brimonidine 0.2 % eye drops 1 drp OPHTHALMIC (EYE) BID ml 10/31/20 09/03/21 dorzolamide 22.3 mg-timolol 6.8 1 drp OPHTHALMIC (EYE) BID ml 10/31/20 09/03/21 mg/mL eye drops latanoprost 0.005 % eye drops 1 drp OPHTHALMIC (EYE) BEDTIME 10/31/20 09/03/21 pravastatin 80 mg tablet 80 mg PO BEDTIME 10/31/20 09/03/21 warfarin 2.5 mg tablet 2.5 mg PO DAILY 10/31/20 09/03/21 cholecalciferol (vitamin D3) 25 25 mcg PO DAILY 02/18/21 09/03/21 mcg (1,000 unit) capsule (Vitamin D3) tamsulosin 0.4 mg capsule 1 cap PO DAILY 05/01/21 09/03/21 Previous Rx's Medication Instructions Recorded doxazosin 2 mg tablet 8 mg PO DAILY 30 Days #120 tab 02/22/21 metoprolol succinate 25 mg 25 mg PO DAILY #90 tab 05/08/21 tablet,extended release 24 hr acetaminophen 325 mg tablet 650 mg PO Q6H PRN 30 Days #240 tab 05/10/21 amoxicillin 500 mg tablet 2,000 mg PO ONCE 1 Days #4 tab 06/17/21 Allergies Allergy/AdvReac Type Severity Reaction Status Date / Time ciprofloxacin [From CIPRO] Allergy Intermediate RASH Verified 09/03/21 08:27 Chocolate Allergy Sneezing Verified 09/03/21 08:27 milk Allergy Sneezing Verified 09/03/21 08:27 Review of Systems Review of Systems: Constitutional: Positive weakness. Positive fatigue. No weight loss, fever, chills HEENT: No visual loss, blurred vision, double vision or yellow sclera. No hearing loss, sneezing, congestion, runny nose or sore throat. Skin: No rash or itching. Cardiovascular: Positive chest pain No palpitations or pedal edema. Respiratory: No shortness of breath, cough or sputum production. Gastrointestinal: No anorexia, nausea, vomiting or diarrhea. No abdominal pain or blood in stool. Genitourinary: No burning micturition. No urinary frequency or incontinence. Neurologic: No headache, dizziness, syncope, unilateral weakness, ataxia, numbness or tingling in the extremities. No change in bowel or bladder control. Musculoskeletal: Positive back pain No muscle pain joint pain or stiffness. Hematologic: No bleeding or bruising. Lymphatics: No enlarged lymph nodes. Psychiatric:No depression or anxiety. Endocrine: No polyuria or polydipsia. Yes all other systems are reviewed and are negative PMFSH Past Medical History Attestation statement: The following information was validated with the patient. Source: old records reviewed Medical History Abnormal gait Arthritis Atrial fibrillation Atrial fibrillation Benign essential hypertension BPH (benign prostatic hyperplasia) Coronary arteriosclerosis in jamul artery Effusion, right knee Glaucoma Heart disease High cholesterol Myocardial infarct, old PAF (paroxysmal atrial fibrillation) Raynaud phenomenon RBBB (right bundle branch block) Surgical History History of bunionectomy of left great toe History of cardiac radiofrequency ablation History of cystoscopy History of left inguinal hernia repair History of meniscectomy of right knee History of prostate surgery History of right knee surgery History of total knee replacement History of total right knee replacement (TKR) Family History Family History Father No problems noted. Mother No problems noted. Social History Social History Are you a primary director critical care to a significant other at home: No Do you presently have visiting nurse or other home services: Yes (Patient's Granddaughter comes M-F to help) Alcohol intake: never Patient Tobacco Use Status: Former Tobacco user Quit Date: 1991 Tobacco use type: Cigarette Second Hand Smoke Exposure: No Advance Directives: No Advance Directives Information Provided: No service: No Current occupational status: retired Current occupation: left handed Physical Exam ED Vital Signs: Vital Signs - 24 hr 09/20/21 13:15 09/20/21 16:19 09/20/21 16:43 Temperature 98 F 97.5 F Pulse Rate 86 83 Respiratory Rate 19 15 Blood Pressure 140/75 H 168/75 H Pulse Oximetry 98 93 98 BMI result Body Mass Index 23.5 Vital signs have been reviewed as normal and appeared to be correct. Blood pressure elevated Heart rate normal.? Respiration rate normal. Temperature normal.? Oxygen saturation normal. Appearance: Alert.?Oriented to person, place and time. No acute distress.?Normal affect. Eyes: Pupils equal, round and reactive to light.? ENT: Pharynx normal.?? Neck: Normal inspection.? Neck supple.?? CVS: Heart sounds normal. Normal heart rate and rhythm.? Pulses normal.?? Respiratory: No respiratory distress.? Lung sounds clear to auscultation bilaterally. Right lateral chest wall tenderness. Abdomen: Soft and non-tender. Normoactive bowel sounds. No pulsatile mass.? Back: Palpable midline thoracic spine tenderness with palpation? Skin: Skin warm and dry.? Normal skin color.? ?? Extremities: No lower extremity edema.? No calf ttp? Neuro: Moves all extremities spontaneously. Sensation intact bilaterally. CN II-XII intact. No focal neuro deficits. Unsteady gait, requires 2 person assist for transfer. Course Course Course Narrative: Patient is a 76-year-old male with a past medical history of arthritis, atrial fibrillation, hypertension, BPH, coronary artery disease, raynauds, which presenting to the emergency department for evaluation of lateral chest wall pain which has been ongoing over the past month, mid upper back pain, and generalized weakness and fatigue. Patient reportedly had an outpatient x-ray which was unremarkable and was told that he had bruised ribs. Will obtain CBC to evaluate for leukocytosis/ anemia, CMP to evaluate for abnormal electrolytes /abnormal renal function/ abnormal hepaticfunction, EKG and troponin to evaluate for ischemia/ACS. Chest x-ray was ordered in triage, will obtain chest CT in addition. Urinalysis to evaluate for infection. Reevaluation(s) Reevaluation #1: X-ray of the ribs reveals multiple old right anterior rib fractures, with question of recent nondisplaced right anterior 5th rib fracture. EKG reveals normal sinus rhythm with bifascicular block, troponin within normal limits 10.4, no acute concerns for ischemia. CBC is overall unremarkable, no anemia or leukocytosis. INR 3.1, goal between 2-3 per patient. Urinalysis is consistent with infection positive for nitrates, 3+ leuk esterase, TNTC WBC, and RBC. Patient to be given a new prescription for cephalexin given his prior allergy to Cipro. Has an elevated BUN of 24 and creatinine 1.24, suspect this may be related to dehydration. Calcium is elevated at 12.1 and alkaline phosphatase slightly elevated at 127. CT of the chest reveals a lobulated density in the right upper lobe 2.3 cm, suggestive of neoplasm given the extensive matted lymphadenopathy within the mediastinum and right hilum. Additionally there are multiple lytic osseous abnormalities of the thoracic spine and cortical irregularities of the bilateral ribs which may represent old healed fractures or possibly pathologic fracture/metastatic disease. Small pericardial effusion is present. Discussed this case with ED attending Dr. Hampton. Patient and his daughter were both made aware of these findings, and discussed potential severity including malignancy possible metastasis. Spoke with oncology christ[employer] contractor Dr. Serrano, who recommends IV hydration and pamidronate for his hypercalcemia, patient agreeable with plan of care. Had case management involvement in the emergency department to establish VNA services and at-home physical therapy for at the time of discharge. Time: 17:45 Reevaluation #2: Reached out to hospitalist Dr. Vaca for admission to medicine, accepted, to be admitted by night hospitalist Dr. Chino. Time: 18:15 Medical Decision Making Medical Records Medical records reviewed: Yes I reviewed the patient's medical records. Lab Data Lab results reviewed: Yes I reviewed the patient's lab results. Result diagrams: 09/20/21 15:07 09/20/21 15:07 Labs: Lab Results 09/20/21 09/20/21 09/20/21 Range/Units 15:07 15:07 15:07 WBC 7.1 (4.8-10.8) X10*3/uL RBC 5.43 D (4.60-5.80) X10*6/uL Hgb 14.8 D (14.0-18.0) g/dl Hct 45.8 D (42.0-52.0) % MCV 84.3 (80.0-98.0) fL MCH 27.3 (27.0-33.0) pg MCHC 32.3 (31.0-36.0) g/dl RDW 14.7 (11.0-16.0) % Plt Count 215 D (160-400) X10*3/uL MPV 10.9 (9.4-12.4) fL Immature Gran % (Auto) 0.6 H (0.0-0.4) % Neut % (Auto) 68.3 (45-73) % Lymph % (Auto) 16.5 L (20-40) % Foard % (Auto) 12.5 H (2-11) % Eos % (Auto) 1.4 (0-4) % Baso % (Auto) 0.7 (0-2) % Lymph # (Auto) 1.2 (1.2-4.9) X10*3/uL Foard # (Auto) 0.9 (0.1-1.2) X10*3/uL Eos # (Auto) 0.1 (0.0-0.4) X10*3/uL Baso # (Auto) 0.1 (0.0-0.2) X10*3/uL Abs Immat Gran (auto) 0.04 H (0.00-0.03) X10*3/uL Absolute Neuts (auto) 4.9 (2.0-8.3) x10*3/uL Absolute Nucleated RBC 0.000 (0.0-0.012) X10*3/uL Nucleated RBC % (auto) 0.0 (0.0-0.2) /100WBC PT (9.9-13.0) SEC INR (0.9-1.1) Sodium 141 (135-145) mmol/L Potassium 4.5 (3.3-5.1) mmol/L Chloride 101 (96-108) mmol/L Carbon Dioxide 30 H (22-29) mmol/L Anion Gap 15 (12-20) BUN 24 H (9-16) mg/dL Creatinine 1.24 (0.5-1.4) mg/dL Estim Creat Clear Calc 45.9 Estimated GFR 56 Random Glucose 94 (60-115) mg/dL Calcium 12.1 H D (8.4-10.2) mg/dL Magnesium 1.7 (1.6-2.6) mg/dL Total Bilirubin 0.5 (0.0-1.0) mg/dL AST 27 (5-37) U/L ALT 11 (0-40) U/L Alkaline Phosphatase 127 H (39-117) U/L Troponin I High Sens 10.4 (<3.5-35.0) ng/L Total Protein 7.5 (6.5-8.0) g/dL Albumin 4.1 (3.5-5.0) g/dL Urine Color Urine Appearance Urine pH (5.0-8.0) Ur Specific Morrill (1.005-1.025) Urine Protein (NEG-TRACE) MG/DL Urine Glucose (UA) (NEG) MG/DL Urine Ketones (NEG) MG/DL Urine Blood (NEG) Urine Nitrite (NEG) Ur Leukocyte Esterase (NEG) Urine RBC (0) /HPF Urine WBC (0-4) /HPF Ur Squamous Epith Cells /LPF Urine Bacteria /LPF COVID-19 (RY) (Negative) COVID-19 Clin Com Influenza Type A (LUZ) (Negative) Influenza Type B (LUZ) (Negative) Influenza A & B Note 09/20/21 09/20/21 09/20/21 Range/Units 15:07 15:08 15:08 WBC (4.8-10.8) X10*3/uL RBC (4.60-5.80) X10*6/uL Hgb (14.0-18.0) g/dl Hct (42.0-52.0) % MCV (80.0-98.0) fL MCH (27.0-33.0) pg MCHC (31.0-36.0) g/dl RDW (11.0-16.0) % Plt Count (160-400) X10*3/uL MPV (9.4-12.4) fL Immature Gran % (Auto) (0.0-0.4) % Neut % (Auto) (45-73) % Lymph % (Auto) (20-40) % Foard % (Auto) (2-11) % Eos % (Auto) (0-4) % Baso % (Auto) (0-2) % Lymph # (Auto) (1.2-4.9) X10*3/uL Foard # (Auto) (0.1-1.2) X10*3/uL Eos # (Auto) (0.0-0.4) X10*3/uL Baso # (Auto) (0.0-0.2) X10*3/uL Abs Immat Gran (auto) (0.00-0.03) X10*3/uL Absolute Neuts (auto) (2.0-8.3) x10*3/uL Absolute Nucleated RBC (0.0-0.012) X10*3/uL Nucleated RBC % (auto) (0.0-0.2) /100WBC PT 36.1 H (9.9-13.0) SEC INR 3.1 H (0.9-1.1) Sodium (135-145) mmol/L Potassium (3.3-5.1) mmol/L Chloride (96-108) mmol/L Carbon Dioxide (22-29) mmol/L Anion Gap (12-20) BUN (9-16) mg/dL Creatinine (0.5-1.4) mg/dL Estim Creat Clear Calc Estimated GFR Random Glucose (60-115) mg/dL Calcium (8.4-10.2) mg/dL Magnesium (1.6-2.6) mg/dL Total Bilirubin (0.0-1.0) mg/dL AST (5-37) U/L ALT (0-40) U/L Alkaline Phosphatase (39-117) U/L Troponin I High Sens (<3.5-35.0) ng/L Total Protein (6.5-8.0) g/dL Albumin (3.5-5.0) g/dL Urine Color Urine Appearance Urine pH (5.0-8.0) Ur Specific Morrill (1.005-1.025) Urine Protein (NEG-TRACE) MG/DL Urine Glucose (UA) (NEG) MG/DL Urine Ketones (NEG) MG/DL Urine Blood (NEG) Urine Nitrite (NEG) Ur Leukocyte Esterase (NEG) Urine RBC (0) /HPF Urine WBC (0-4) /HPF Ur Squamous Epith Cells /LPF Urine Bacteria /LPF COVID-19 (RY) Negative (Negative) COVID-19 Clin Com See Note Influenza Type A (LUZ) Negative (Negative) Influenza Type B (LUZ) Negative (Negative) Influenza A & B Note See Note 09/20/21 Range/Units 15:27 WBC (4.8-10.8) X10*3/uL RBC (4.60-5.80) X10*6/uL Hgb (14.0-18.0) g/dl Hct (42.0-52.0) % MCV (80.0-98.0) fL MCH (27.0-33.0) pg MCHC (31.0-36.0) g/dl RDW (11.0-16.0) % Plt Count (160-400) X10*3/uL MPV (9.4-12.4) fL Immature Gran % (Auto) (0.0-0.4) % Neut % (Auto) (45-73) % Lymph % (Auto) (20-40) % Foard % (Auto) (2-11) % Eos % (Auto) (0-4) % Baso % (Auto) (0-2) % Lymph # (Auto) (1.2-4.9) X10*3/uL Foard # (Auto) (0.1-1.2) X10*3/uL Eos # (Auto) (0.0-0.4) X10*3/uL Baso # (Auto) (0.0-0.2) X10*3/uL Abs Immat Gran (auto) (0.00-0.03) X10*3/uL Absolute Neuts (auto) (2.0-8.3) x10*3/uL Absolute Nucleated RBC (0.0-0.012) X10*3/uL Nucleated RBC % (auto) (0.0-0.2) /100WBC PT (9.9-13.0) SEC INR (0.9-1.1) Sodium (135-145) mmol/L Potassium (3.3-5.1) mmol/L Chloride (96-108) mmol/L Carbon Dioxide (22-29) mmol/L Anion Gap (12-20) BUN (9-16) mg/dL Creatinine (0.5-1.4) mg/dL Estim Creat Clear Calc Estimated GFR Random Glucose (60-115) mg/dL Calcium (8.4-10.2) mg/dL Magnesium (1.6-2.6) mg/dL Total Bilirubin (0.0-1.0) mg/dL AST (5-37) U/L ALT (0-40) U/L Alkaline Phosphatase (39-117) U/L Troponin I High Sens (<3.5-35.0) ng/L Total Protein (6.5-8.0) g/dL Albumin (3.5-5.0) g/dL Urine Color YELLOW Urine Appearance CLOUDY Urine pH 6.0 (5.0-8.0) Ur Specific Morrill 1.020 (1.005-1.025) Urine Protein NEG (NEG-TRACE) MG/DL Urine Glucose (UA) NEG (NEG) MG/DL Urine Ketones NEG (NEG) MG/DL Urine Blood 2+ H (NEG) Urine Nitrite POS H (NEG) Ur Leukocyte Esterase 3+ H (NEG) Urine RBC 30-49 H (0) /HPF Urine WBC TNTC H (0-4) /HPF Ur Squamous Epith Cells NONE /LPF Urine Bacteria 3+ /LPF COVID-19 (RY) (Negative) COVID-19 Clin Com Influenza Type A (LUZ) (Negative) Influenza Type B (LUZ) (Negative) Influenza A & B Note Imaging Data XR chest/ rib: Radiologist's impression: XR/XR ribs BI min 4V w CXR1V IMPRESSION: No evidence for acute disease in the chest. Multiple old right anterior rib fractures. Question recent nondisplaced right anterior fifth rib fracture. shoulder XR: Radiologist's impression: XR/XR shoulder RT min 2V IMPRESSION: No acute fracture or dislocation. High humeral head suggestive of rotator cuff disease and arthritis at the acromioclavicular joint. XR/XR shoulder LT min 2V IMPRESSION: No fracture or dislocation. High humeral head suggestive of rotator cuff disease and arthritis at the acromio clavicular joint. XR thoracic : Radiologist's impression: XR/XR thoracic spine 2V IMPRESSION: Limited visualization of the proximal thoracic spine. Mild curvature of the thoracic spine to the left. No fracture or dislocation.? CT chest: Radiologist's impression: [place] [id number] CT Scan Report Signed Patient: Wali Fink MR#: [id number] : 1945 Acct:[id number] Age/Sex: 76 / M ADM Date: 09/20/21 Loc: .ED Attending Dr: Ordering Physician: Xenia Irby CNP Date of Service: 09/20/21 Procedure(s): CT chest w con Accession Number(s): [id number] cc: Xenia Irby CNP~ EXAMINATION: CT CHEST WITH CONTRAST CT/CT chest w con IMPRESSION: 1.? Lobulated density of the right upper lobe which measures approximately 2.3 cm. This may represent an endobronchial lesion or possibly mucus plugging. Neoplasm is suggested given the extensive matted lymphadenopathy within the mediastinum and right hilum. 2. ? Numerous lytic osseous abnormalities of the thoracic spine. There are also cortical irregularities of numerous bilateral ribs which may represent old healed fractures or possibly pathologic fractures/metastatic disease. 3.? Small pericardial effusion. ? ?PET imaging likely warranted. Nuclear medicine bone scan may also be warranted. ECG Data Attestation: I personally reviewed and interpreted this ECG as follows: Prior ECG tracings: available for review Interpretation: Rate: 74 Rhythm:? Normal sinus rhythm, bifascicular block Nikolai:? Normal Normal P waves.? Normal BELLE.?? Normal QRS complex.?? qTC: 438 prior studies:? December 2020 The study has been interpreted contemporaneously by me. Discharge Plan Discharge Clinical Impression: Abnormal chest CT, Urinary tract infection, Hypercalcemia, Dehydration, Generalized weakness Patient Disposition: Admitted As Inpatient Prescriptions: No Action metoprolol succinate 25 mg tablet extended release 24 hr 25 mg PO DAILY Qty: 90 3RF amoxicillin 500 mg tablet 2,000 mg PO ONCE 1 Days Qty: 4 3RF Rx Instructions: take 4 capsules 1 hr prior to dental procedure tamsulosin 0.4 mg capsule 1 cap PO DAILY 0RF acetaminophen 325 mg Tablet 650 mg PO Q6H PRN (Reason: Pain, Mild (Pain Scale 1-3)) 30 Days Qty: 240 0RF cholecalciferol (vitamin D3) [Vitamin D3] 25 mcg (1,000 unit) Capsule 25 mcg PO DAILY 0RF doxazosin 2 mg Tablet 8 mg PO DAILY 30 Days Qty: 120 0RF Protocol: Hold for SBP< HOLD for SBP < : 90 pravastatin 80 mg tablet 80 mg PO BEDTIME 0RF warfarin 2.5 mg tablet 2.5 mg PO DAILY 0RF latanoprost 0.005 % drops 1 drp ophthalmic (eye) BEDTIME 0RF brimonidine 0.2 % drops 1 drp ophthalmic (eye) BID 0RF dorzolamide-timolol 22.3-6.8 mg/mL drops 1 drp ophthalmic (eye) BID 0RF Referrals: [facility] [Outside]
--- NOTE | 2021-09-20 14:37 | ECG_ITS ---
Test Reason : fall Blood Pressure : / mmHG Vent. Rate : 073 BPM Atrial Rate : 073 BPM P-R Int : 162 ms QRS Dur : 128 ms QT Int : 398 ms P-R-T Axes : 069 -59 063 degrees QTc Int : 438 ms Normal sinus rhythm Right bundle branch block Left anterior fascicular block Bifascicular block Abnormal ECG When compared with ECG of 02-JAN-2021 11:50, Vent. rate has increased BY 26 BPM Nonspecific T wave abnormality no longer evident in Inferior leads Referred By: Xenia Irby Electronically Signed By:PERLA MCCARTHY
[2021-09-20 15:12] LABS: MANUAL DIFF FLAG NO
[2021-09-20 15:15] LABS: Basophils Absolute Auto 0.1 X10*3/uL (0.0-0.2); Basophils Percent Auto 0.7 % (0-2); Eosinophils Absolute Auto 0.1 X10*3/uL (0.0-0.4); Eosinophils Percent Auto 1.4 % (0-4); Hematocrit 45.8 % (42.0-52.0); Hemoglobin 14.8 g/dl (14.0-18.0); Imm Gran Abs Auto 0.04 X10*3/uL (0.00-0.03); Imm Gran Pct Auto 0.6 % (0.0-0.4); Lymphocytes Absolute Auto 1.2 X10*3/uL (1.2-4.9); Lymphocytes Percent Auto 16.5 % (20-40); Mean Corpuscular HGB Conc 32.3 g/dl (31.0-36.0); Mean Corpuscular Hemoglobin 27.3 pg (27.0-33.0); Mean Corpuscular Volume 84.3 fL (80.0-98.0); Mean Platelet Volume 10.9 fL (9.4-12.4); Monocytes Absolute Auto 0.9 X10*3/uL (0.1-1.2); Monocytes Percent Auto 12.5 % (2-11); Neutrophils Absolute Auto 4.9 x10*3/uL (2.0-8.3); Neutrophils Percent Auto 68.3 % (45-73); Platelet Count 215 X10*3/uL (160-400); Red Blood Count 5.43 X10*6/uL (4.60-5.80); Red Cell Distribution Width 14.7 % (11.0-16.0); White Blood Count 7.1 X10*3/uL (4.8-10.8)
[2021-09-20 15:20] LABS: INTERNATIONAL NORM RATIO 3.1 (0.9-1.1); Prothrombin Time 36.1 SEC (9.9-13.0)
[2021-09-20 15:28] LABS: COVID-19 Test Negative (Negative); IDNOW Serial# 16C4AD1C; Influenza A Negative (Negative); Influenza B2 Negative (Negative)
[2021-09-20 15:35] LABS: Troponin-I High Sensitivity 10.4 ng/L (<3.5-35.0)
[2021-09-20 15:37] LABS: Alanine Aminotransferase 11 U/L (0-40); Albumin Level 4.1 g/dL (3.5-5.0); Alkaline Phosphatase 127 U/L (39-117); Anion Gap 15 (12-20); Aspartate Amino Transferase 27 U/L (5-37); Bilirubin Total 0.5 mg/dL (0.0-1.0); Blood Urea Nitrogen 24 mg/dL (9-16); Carbon Dioxide 30 mmol/L (22-29); Chloride 101 mmol/L (96-108); Creatinine Clr Calc Pharmacy 45.9; Estimated Glomerular Filt Rate 56; Glucose Random 94 mg/dL (60-115); Magnesium 1.7 mg/dL (1.6-2.6); Potassium 4.5 mmol/L (3.3-5.1); Sodium 141 mmol/L (135-145); Total Protein 7.5 g/dL (6.5-8.0)
[2021-09-20 15:43] LABS: Calcium 12.1 mg/dL (8.4-10.2)
[2021-09-20 15:55] LABS: Appearance Urine CLOUDY; Color Urine YELLOW; Glucose Urine UA NEG (NEG); Leukocyte Esterase Urine 3+ (NEG); Nitrite Urine POS (NEG); UACC Culture Trigger YES; Urine Blood 2+ (NEG); Urine Ketones NEG (NEG); Urine Protein NEG (NEG-TRACE)
[2021-09-20 16:04] LABS: Bacteria Urine 3+ /LPF; RBC Urine 30-49 /HPF (0); WBC Urine TNTC /HPF (0-4)
[2021-09-20] MEDS: iohexoL 350 MG/ML 100 ML INFUS..BTL IV (16:06)
[2021-09-20 16:19] VITALS: BP 168/75; PULSE 83; RESP 15; TEMP 36.4; O2SAT 93
[2021-09-20 16:43] VITALS: O2SAT 98
--- NOTE | 2021-09-20 16:47 | MHC.CM.ED ---
[facility] has accepted pt and will evaluate pt for PT. F2F completed by [employer] and faxed to them at [phone]. CM Contact card given to patient's family with [facility] contact information.
[2021-09-20] MEDS: cefTRIAXone sodium 1 GM in 0.9 % Sodium Chloride 50 ML IV (18:31)
[2021-09-20] MEDS: 0.9 % Sodium Chloride 1,000 ML 999 ML IV (18:32)
--- NOTE | 2021-09-20 20:23 | PC.NURSE ---
PT MOVED TO MAIN ED PENDING ADMISSION REPORT GIVEN TO ENGINE HOSTLER.
--- NOTE | 2021-09-20 20:37 | PHA.MEDREC ---
Pharmacy Consult ? Medication Reconciliation Pharmacy has completed the medication reconciliation. spoke with pt. He did not take his meds today Thursday
--- NOTE | 2021-09-20 21:23 | MHC.CM.PN ---
IMM 09/20. CM met with A&Ox3, david gentleman, who was initially going to be d/c home with [facility] for SN and PT evaluation. CM requested [facility] to follow pt for discharge. Decision to admit patient. Vax/boosted x2/Moderna. HCP on file. HCP/ of 44 years Radha Fink ([phone]). Lives with . Uses a cane/walker. No services presently at home. D/C plan: home with [facility]. Family to transport. CM to follow for d/c needs.
[2021-09-20 21:59] VITALS: PULSE 83; RESP 16; O2SAT 97
[2021-09-20] MEDS: Brimonidine Tartrate 0.2% Oph 5 ML BOTTLE 1 DROP EYE-BOTH (22:02)
[2021-09-20] MEDS: Latanoprost 0.005 % Ophth Sol 2.5 ML DROPS 1 DROP EYE-BOTH (22:02)
[2021-09-20] MEDS: Dorzolamide/Timolo 2.23%/0.68% 10 ML DRBTL 1 DROP EYE-BOTH (22:03)
[2021-09-20] MEDS: Pravastatin Sodium 80 MG TABLET PO (22:05)
--- NOTE | 2021-09-20 22:12 | PM.IMHP ---
History of Present Illness Date of Service: 09/20/21 Chief Complaint: Gen Weakness/ fall 76-year-old male with a past medical history of hypertension, hyperlipidemia, CAD, paroxysmal AFib on Coumadin, BPH, arthritis, Raynaud phenomena, history of total knee replacement; presented to the hospital today with a chief complaint chest pain/fall. Pt is a poor historian. Patient reported that he fell near the car about a month ago, tripped and fell on his left side, hit his chest to car, denies any head strike or loss of consciousness. Followed by he developed chest pain on the left lateral chest wall; over the past few days he has been having generalized weakness, increased chest pain; denies any abdominal pain, nausea vomiting diarrhea, urinary frequency urgency or dysuria. Denies any numbness tingling or focal weakness. Reports that he had bilateral knee surgery; has been lying in the bed since he came into the ER-hence he is not able to move his lower extremities but prolonged immobilization for patient. Also attributes to his bilateral knee arthritis. Review of all other systems is negative except mentioned above ER course: Per ER team patient reported unsteady gait; exam was grossly nonfocal; lab showed INR of 3.1; urinalysis abnormal consistent UTI-given ceftriaxone; CT chest showed lobulated density measuring 2.3 cm may represent endobronchial lesion versus mucous plugging also noted extensive lymphadenopathy concerning for neoplasm; new lytic lesions on the thoracic spine noted; also concern for old healed fractures of the ribs secondary to lytic bone lesions persist metastatic disease. Small pericardial effusion. Notified Dr. Serrano from Oncology. admitted for further management. FORMERLY [facility], [facility] Medical History Abnormal gait Arthritis Atrial fibrillation Atrial fibrillation Benign essential hypertension BPH (benign prostatic hyperplasia) Coronary arteriosclerosis in [place] artery Effusion, right knee Glaucoma Heart disease High cholesterol Myocardial infarct, old PAF (paroxysmal atrial fibrillation) Raynaud phenomenon RBBB (right bundle branch block) Family History Father No problems noted. Mother No problems noted. Surgical History History of bunionectomy of left great toe History of cardiac radiofrequency ablation History of cystoscopy History of left inguinal hernia repair History of meniscectomy of right knee History of prostate surgery History of right knee surgery History of total knee replacement History of total right knee replacement (TKR) Social History Household Members: Spouse Housing: House Are you a primary intensive care unit nurse to a significant other at home: No Do you presently have visiting nurse or other home services: No Alcohol intake: never Patient Tobacco Use Status: Former Tobacco user Quit Date: 1991 Tobacco use type: Cigarette e-Cigarette/Vaping Use: Never Used Second Hand Smoke Exposure: No service: No Current occupational status: retired Current occupation: left handed Meds Allergies Allergy/AdvReac Type Severity Reaction Status Date / Time ciprofloxacin [From CIPRO] Allergy Intermediate RASH Verified 09/03/21 08:27 Chocolate Allergy Sneezing Verified 09/03/21 08:27 milk Allergy Sneezing Verified 09/03/21 08:27 Active Medications: Current Medications Acetaminophen (Acetaminophen 325 Mg Tablet) 650 mg PO Q6H PRN PRN Reason: Pain, Mild (Pain Scale 1-3) Benzonatate (Benzonatate 100 Mg Capsule) 100 mg PO TID PRN PRN Reason: Cough Brimonidine Tartrate (Brimonidine Tartrate 0.2% Oph 5 Ml Bottle) 1 drop EYE-BOTH BID KASSIDY Dorzolamide/Timolol (Dorzolamide/Timolo 2.23%/0.68% 10 Ml Drbtl) 1 drop EYE-BOTH BID KASSIDY Dextrose/Sodium Chloride (D5ns) 1,000 mls @ 50 mls/hr IVCONT .Q20H KASSIDY Ceftriaxone Sodium 1 gm/ (Sodium Chloride) 50 mls @ 100 mls/hr IV Q24H KASSIDY Latanoprost (Latanoprost 0.005 % Ophth Loretta 2.5 Ml Drops) 1 drop EYE-BOTH BEDTIME KASSIDY Melatonin (Melatonin 3 Mg Tablet) 6 mg PO BEDTIME PRN PRN Reason: Insomnia Metoprolol Succinate (Metoprolol Succinate Er 25 Mg Tab.Er.24h) 25 mg PO DAILY KASSIDY; Protocol Oxycodone HCl (Oxycodone Hcl Immed Release 5 Mg Tablet) 5 mg PO BID PRN PRN Reason: Pain, Moderate Pharmacy Consult (Consult Rx Perform Med Rec) 1 each MISCELLANE ONCE PRN PRN Reason: Consult order Pravastatin Sodium (Pravastatin Sodium 80 Mg Tablet) 80 mg PO BEDTIME [facility] Senna (Sennosides 8.6 Mg Tablet) 17.2 mg PO BEDTIME PRN PRN Reason: Constipation Sodium Chloride (0.9 % Sodium Chloride Flush 3 Ml Syringe) 3 ml IVFLUSH QSHIFT [facility] Tamsulosin HCl (Tamsulosin Hcl 0.4 Mg Capsule) 0.4 mg PO DAILY@1700 [facility] Warfarin Sodium (Warfarin Sodium 2.5 Mg Tablet) 2.5 mg PO DAILY@1700 [facility] Home Medications Medication Instructions Recorded Confirmed Last Taken Type brimonidine 0.2 % eye drops 1 drp OPHTHALMIC (EYE) BID ml 10/31/20 09/20/21 09/19/21 History dorzolamide 22.3 mg-timolol 6.8 1 drp OPHTHALMIC (EYE) BID ml 10/31/20 09/20/21 09/19/21 History mg/mL eye drops latanoprost 0.005 % eye drops 1 drp OPHTHALMIC (EYE) BEDTIME 10/31/20 09/20/21 09/19/21 History pravastatin 80 mg tablet 80 mg PO BEDTIME 10/31/20 09/20/21 09/19/21 History warfarin 2.5 mg tablet 2.5 mg PO DAILY@1700 10/31/20 09/20/21 09/19/21 History tamsulosin 0.4 mg capsule 1 cap PO DAILY 05/01/21 09/20/21 09/19/21 History oxycodone 5 mg tablet 1 tab PO BID PRN 09/20/21 09/20/21 09/19/21 History Physical Exam Vital Signs and Narrative: Vital Signs: Last Vital Signs Temp 97.5 F 09/20/21 16:19 Pulse 83 09/20/21 21:59 Resp 16 09/20/21 21:59 BP 168/75 H 09/20/21 16:19 Pulse Ox 97 09/20/21 21:59 BMI result Body Mass Index 23.5 Gen: Appears be in no acute distress HEENT: NCAT, dry mucosa. Neck is supple, able to move freely Pulmonary: Vesicular breath sounds, fair air entry; left lateral chest wall tenderness noted. Reproducible. No ecchymosis or bruising noted. CVS: Normal S1-S2 Abdomen: BS+, Soft, Nontender; Extremities: Warm well perfused; no focal spinal tenderness noted Neuro: Alert and awake. Sensations equal bilaterally; and was intact; upper extremity strength equal bilaterally; bilateral lower extremities reduced-3/5-> limited by the pain bilateral lower extremity sensations are normal; Results Labs CBC and Chem 7: 09/21/21 05:52 09/21/21 05:52 Labs: Laboratory Results - last 24 hr 09/20/21 09/20/21 09/20/21 15:07 15:07 15:07 MCV 84.3 MCH 27.3 MCHC 32.3 RDW 14.7 Plt Count 215 D MPV 10.9 Immature Gran % (Auto) 0.6 H Neut % (Auto) 68.3 Lymph % (Auto) 16.5 L Calloway % (Auto) 12.5 H Eos % (Auto) 1.4 Baso % (Auto) 0.7 Lymph # (Auto) 1.2 Calloway # (Auto) 0.9 Eos # (Auto) 0.1 Baso # (Auto) 0.1 Abs Immat Gran (auto) 0.04 H Absolute Neuts (auto) 4.9 Absolute Nucleated RBC 0.000 Nucleated RBC % (auto) 0.0 PT INR Anion Gap 15 Estim Creat Clear Calc 45.9 Estimated GFR 56 Random Glucose 94 Calcium 12.1 H D Magnesium 1.7 Total Bilirubin 0.5 AST 27 ALT 11 Alkaline Phosphatase 127 H Troponin I High Sens 10.4 Total Protein 7.5 Albumin 4.1 Urine Color Urine Appearance Urine pH Ur Specific [place] Urine Protein Urine Glucose (UA) Urine Ketones Urine Blood Urine Nitrite Ur Leukocyte Esterase Urine RBC Urine WBC Ur Squamous Epith Cells Urine Bacteria COVID-19 (RY) COVID-19 Clin Com Influenza Type A (LUZ) Influenza Type B (LUZ) Influenza A & B Note 09/20/21 09/20/21 09/20/21 15:07 15:08 15:08 MCV MCH MCHC RDW Plt Count MPV Immature Gran % (Auto) Neut % (Auto) Lymph % (Auto) Calloway % (Auto) Eos % (Auto) Baso % (Auto) Lymph # (Auto) Calloway # (Auto) Eos # (Auto) Baso # (Auto) Abs Immat Gran (auto) Absolute Neuts (auto) Absolute Nucleated RBC Nucleated RBC % (auto) PT 36.1 H INR 3.1 H Anion Gap Estim Creat Clear Calc Estimated GFR Random Glucose Calcium Magnesium Total Bilirubin AST ALT Alkaline Phosphatase Troponin I High Sens Total Protein Albumin Urine Color Urine Appearance Urine pH Ur Specific [place] Urine Protein Urine Glucose (UA) Urine Ketones Urine Blood Urine Nitrite Ur Leukocyte Esterase Urine RBC Urine WBC Ur Squamous Epith Cells Urine Bacteria COVID-19 (RY) Negative COVID-19 Clin Com See Note Influenza Type A (LUZ) Negative Influenza Type B (LUZ) Negative Influenza A & B Note See Note 09/20/21 15:27 MCV MCH MCHC RDW Plt Count MPV Immature Gran % (Auto) Neut % (Auto) Lymph % (Auto) Calloway % (Auto) Eos % (Auto) Baso % (Auto) Lymph # (Auto) Calloway # (Auto) Eos # (Auto) Baso # (Auto) Abs Immat Gran (auto) Absolute Neuts (auto) Absolute Nucleated RBC Nucleated RBC % (auto) PT INR Anion Gap Estim Creat Clear Calc Estimated GFR Random Glucose Calcium Magnesium Total Bilirubin AST ALT Alkaline Phosphatase Troponin I High Sens Total Protein Albumin Urine Color YELLOW Urine Appearance CLOUDY Urine pH 6.0 Ur Specific [place] 1.020 Urine Protein NEG Urine Glucose (UA) NEG Urine Ketones NEG Urine Blood 2+ H Urine Nitrite POS H Ur Leukocyte Esterase 3+ H Urine RBC 30-49 H Urine WBC TNTC H Ur Squamous Epith Cells NONE Urine Bacteria 3+ COVID-19 (RY) COVID-19 Clin Com Influenza Type A (LUZ) Influenza Type B (LUZ) Influenza A & B Note Imaging Radiologist's Impressions: Impressions Ribs w/Chest X-Ray 09/20/21 14:18 IMPRESSION: No evidence for acute disease in the chest. Multiple old right anterior rib fractures. Question recent nondisplaced right anterior fifth rib fracture. Shoulder X-Ray 09/20/21 14:18 IMPRESSION: No acute fracture or dislocation. High humeral head suggestive of rotator cuff disease and arthritis at the acromioclavicular joint. Shoulder X-Ray 09/20/21 14:18 IMPRESSION: No fracture or dislocation. High humeral head suggestive of rotator cuff disease and arthritis at the acromio clavicular joint. Thoracic Spine X-Ray 09/20/21 14:18 IMPRESSION: Limited visualization of the proximal thoracic spine. Mild curvature of the thoracic spine to the left. No fracture or dislocation. Chest CT 09/20/21 16:14 IMPRESSION: 1. Lobulated density of the right upper lobe which measures approximately 2.3 cm. This may represent an endobronchial lesion or possibly mucus plugging. Neoplasm is suggested given the extensive matted lymphadenopathy within the mediastinum and right hilum. 2. Numerous lytic osseous abnormalities of the thoracic spine. There are also cortical irregularities of numerous bilateral ribs which may represent old healed fractures or possibly pathologic fractures/metastatic disease. 3. Small pericardial effusion. PET imaging likely warranted. Nuclear medicine bone scan may also be warranted. Fleischner guidelines were followed. Assessment and Plan Plan 76-year-old male with a past medical history of hypertension, hyperlipidemia, CAD, paroxysmal AFib on Coumadin, BPH, arthritis, Raynaud phenomena, history of total knee replacement; presented to the hospital today with a chief complaint of fall. Noted to have following conditions Fall: Mechanical in nature. Denies any history of loss of consciousness. Patient complains of low back pain and neck pain. Will obtain CT head, CT C-spine and lumbar spine CT. CT chest showed numerous lytic lesions on the thoracic spine, irregularities of the ribs-consistent with chronic healed fractures. PT/OT eventually Fall precautions Low back pain: b/l LE neuro exam limited due to pain; Sensory intact and No Bowel or bladder dysfunction. CT L spinepending. pt reports Unsteady gait-> attributed to pain. Neuro consult. Pain control Hypercalcemia: In the setting of dehydration versus Multiple myeloma given lytic bone lesions. Calcium level on presentation noted to be 12.1. Patient on IV fluids. Repeat calcium levels. If not improving will consider calcitonin. Will also obtain vitamin-D level, PTH, PTHrP. Total protein within normal limits, Creatinine within normal limits. Will also obtain SPEP/UPEP. Lung Mass/lymphadenopathy/lytic bone lesions: Oncology consult for further recommendations. Radiology recommended PET scan UTI: Continue ceftriaxone. Follow up cultures. The History of paroxysmal AFib: Rate controlled. INR therapeutic at 3.1. Follow-up INR in AM and resume Coumadin. History of hypertension/hyperlipidemia: Continue home metoprolol/statin History of glaucoma: Continue home eye drops History of BPH: Status post versus surgery. Continue home Flomax DVT prophylaxis: Patient on Coumadin Code status: Full code Quality Stroke Does the patient have a stroke diagnosis?: No VTE Prior VTE?: No VTE Risk Level:: Medical - moderate - high VTE Device Contraindication: Treatment Not Indicated VTE Drug Contraindication: N/A - Med Ordered
[2021-09-20 22:16] LABS: Vitamin D 25-OH Total 42.6 ng/mL (>30)
[2021-09-20] MEDS: Dextrose 5 % and 0.9 % NaCl 1,000 ML 50 ML IVCONT (23:10)
[2021-09-20] MEDS: oxyCODONE HCl Immed Release 5 MG TABLET PO (23:18)
[2021-09-21] VITALS (9 sets, daily range): BP systolic 111–146; BP diastolic 63–78; PULSE 65–93; RESP 14–23; TEMP 36.2–36.8; O2SAT 90–96
[2021-09-21] MEDS: 0.9 % Sodium Chloride Flush 3 ML SYRINGE IVFLUSH ×2 (00:50→20:09)
[2021-09-21 01:18] LABS: Calcium 11.6 mg/dL (8.4-10.2)
[2021-09-21 06:14] LABS: MANUAL DIFF FLAG NO
[2021-09-21 06:20] LABS: Basophils Percent Auto 0.5 % (0-2); Eosinophils Absolute Auto 0.1 X10*3/uL (0.0-0.4); Eosinophils Percent Auto 1.3 % (0-4); Hematocrit 42.3 % (42.0-52.0); Hemoglobin 13.6 g/dl (14.0-18.0); Imm Gran Abs Auto 0.05 X10*3/uL (0.00-0.03); Imm Gran Pct Auto 0.6 % (0.0-0.4); Lymphocytes Absolute Auto 1.1 X10*3/uL (1.2-4.9); Lymphocytes Percent Auto 13.7 % (20-40); Mean Corpuscular HGB Conc 32.2 g/dl (31.0-36.0); Mean Corpuscular Volume 83.9 fL (80.0-98.0); Mean Platelet Volume 11.6 fL (9.4-12.4); Monocytes Percent Auto 12.6 % (2-11); Neutrophils Absolute Auto 5.6 x10*3/uL (2.0-8.3); Neutrophils Percent Auto 71.3 % (45-73); Platelet Count 202 X10*3/uL (160-400); Red Blood Count 5.04 X10*6/uL (4.60-5.80); Red Cell Distribution Width 14.6 % (11.0-16.0); White Blood Count 7.8 X10*3/uL (4.8-10.8)
[2021-09-21 06:27] LABS: INTERNATIONAL NORM RATIO 3.4 (0.9-1.1); Prothrombin Time 40.1 SEC (9.9-13.0)
[2021-09-21 06:30] LABS: Anion Gap 10 (12-20); Blood Urea Nitrogen 21 mg/dL (9-16); Calcium 11.3 mg/dL (8.4-10.2); Carbon Dioxide 30 mmol/L (22-29); Chloride 106 mmol/L (96-108); Creatinine Clr Calc Pharmacy 53.6; Estimated Glomerular Filt Rate > 60; Glucose Random 110 mg/dL (60-115); Potassium 3.9 mmol/L (3.3-5.1); Sodium 142 mmol/L (135-145)
[2021-09-21] MEDS: Metoprolol Succinate ER 25 MG TAB.ER.24H PO (08:01)
[2021-09-21] MEDS: Brimonidine Tartrate 0.2% Oph 5 ML BOTTLE 1 DROP EYE-BOTH ×2 (08:04→20:09)
[2021-09-21] MEDS: oxyCODONE HCl Immed Release 5 MG TABLET PO ×2 (08:04→22:56)
[2021-09-21] MEDS: Dorzolamide/Timolo 2.23%/0.68% 10 ML DRBTL 1 DROP EYE-BOTH ×2 (08:09→20:09)
--- NOTE | 2021-09-21 10:53 | HO.PM.IMPN ---
Subjective Subjective Date of Service: 09/21/21 Interval History: Back pain, rib pain controlled No dyspnea or cough Review of Systems Review of Systems: Yes all other systems are reviewed and are negative Physical Exam Vital Signs: Vital Signs: Last Vital Signs Temp 97.9 F 09/21/21 07:16 Pulse 81 09/21/21 07:16 Resp 23 H 09/21/21 07:16 BP 123/70 09/21/21 07:16 Pulse Ox 92 09/21/21 07:16 BMI result Body Mass Index 23.5 Gen: in no acute distress HEENT: sclera anicteric, moist mucus membranes Neck: supple Lungs: clear to auscultation bilaterally Heart: regular rate and rhythm, no murmurs Abd: soft, non-tender, non-distended Ext: no edema Skin: warm/well-perfused Neuro: alert and oriented x3, no focal findings Psych: appropriate affect Objective Data Active Medications Acetaminophen (Acetaminophen 325 Mg Tablet) 650 mg PO Q6H PRN PRN Reason: Pain, Mild (Pain Scale 1-3) Benzonatate (Benzonatate 100 Mg Capsule) 100 mg PO TID PRN PRN Reason: Cough Brimonidine Tartrate (Brimonidine Tartrate 0.2% Oph 5 Ml Bottle) 1 drop [facility]-BOTH BID [facility] Last Admin: 09/21/21 08:04 Dose: 1 drop Documented by: PAT Dorzolamide/Timolol (Dorzolamide/Timolo 2.23%/0.68% 10 Ml Drbtl) 1 drop E[facility]-BOTH BID [facility] Last Admin: 09/21/21 08:09 Dose: 1 drop Documented by: PAT Hydromorphone HCl (Hydromorphone Hcl 1 Mg/Ml Syringe) 0.5 mg IVPUSH Q4H PRN; Protocol PRN Reason: Breakthrough Pain Dextrose/Sodium Chloride (D5ns) 1,000 mls @ 50 mls/hr IVCONT .Q20H [facility] Last Admin: 09/20/21 23:10 Dose: 50 mls/hr Documented by: KASSANDRA Ceftriaxone Sodium 1 gm/ (Sodium Chloride) 50 mls @ 100 mls/hr IV Q24H [facility] Latanoprost (Latanoprost 0.005 % Ophth Loret[place] 2.5 Ml Drops) 1 drop EYE-BOTH BEDTIME [facility] Last Admin: 09/20/21 22:02 Dose: 1 drop Documented by: KASSANDRA Melatonin (Melatonin 3 Mg Tablet) 6 mg PO BEDTIME PRN PRN Reason: Insomnia Metoprolol Succinate (Metoprolol Succinate Er 25 Mg Tab.Er.24h) 25 mg PO DAILY [facility]; Protocol Last Admin: 09/21/21 08:01 Dose: 25 mg Documented by: PAT Oxycodone HCl (Oxycodone Hcl Immed Release 5 Mg Tablet) 5 mg PO BID PRN PRN Reason: Pain, Moderate Last Admin: 09/21/21 08:04 Dose: 5 mg Documented by: PAT Pharmacy Consult (Consult Rx Perform Med Rec) 1 each MISCELLANE ONCE PRN PRN Reason: Consult order Pravastatin Sodium (Pravastatin Sodium 80 Mg Tablet) 80 mg PO BEDTIME [facility] Last Admin: 09/20/21 22:05 Dose: 80 mg Documented by: KASSANDRA Senna (Sennosides 8.6 Mg Tablet) 17.2 mg PO BEDTIME PRN PRN Reason: Constipation Sodium Chloride (0.9 % Sodium Chloride Flush 3 Ml Syringe) 3 ml IVFLUSH QSHIFT [facility] Last Admin: 09/21/21 07:05 Dose: Not Given Documented by: PAT Non-Admin Reason: IV Running Tamsulosin HCl (Tamsulosin Hcl 0.4 Mg Capsule) 0.4 mg PO DAILY@1700 [facility] Labs CBC & Chem 7: 09/21/21 05:52 09/21/21 05:52 Labs: Laboratory Results - last 24 hr 09/20/21 09/20/21 09/20/21 15:07 15:07 15:07 MCV 84.3 MCH 27.3 MCHC 32.3 RDW 14.7 Plt Count 215 D MPV 10.9 Immature Gran % (Auto) 0.6 H Neut % (Auto) 68.3 Lymph % (Auto) 16.5 L [place] % (Auto) 12.5 H Eos % (Auto) 1.4 Baso % (Auto) 0.7 Lymph # (Auto) 1.2 [place] # (Auto) 0.9 Eos # (Auto) 0.1 Baso # (Auto) 0.1 Abs Immat Gran (auto) 0.04 H Absolute Neuts (auto) 4.9 Absolute Nucleated RBC 0.000 Nucleated RBC % (auto) 0.0 PT INR Anion Gap 15 Estim Creat Clear Calc 45.9 Estimated GFR 56 Random Glucose 94 Calcium 12.1 H D Magnesium 1.7 Total Bilirubin 0.5 AST 27 ALT 11 Alkaline Phosphatase 127 H Troponin I High Sens 10.4 Total Protein 7.5 Albumin 4.1 25-OH Vitamin D Total Urine Color Urine Appearance Urine pH Ur Specific [place] Urine Protein Urine Glucose (UA) Urine Ketones Urine Blood Urine Nitrite Ur Leukocyte Esterase Urine RBC Urine WBC Ur Squamous Epith Cells Urine Bacteria COVID-19 (RY) COVID-19 Clin Com Influenza Type A (LUZ) Influenza Type B (LUZ) Influenza A & B Note 09/20/21 09/20/21 09/20/21 15:07 15:08 15:08 MCV MCH MCHC RDW Plt Count MPV Immature Gran % (Auto) Neut % (Auto) Lymph % (Auto) [place] % (Auto) Eos % (Auto) Baso % (Auto) Lymph # (Auto) [place] # (Auto) Eos # (Auto) Baso # (Auto) Abs Immat Gran (auto) Absolute Neuts (auto) Absolute Nucleated RBC Nucleated RBC % (auto) PT 36.1 H INR 3.1 H Anion Gap Estim Creat Clear Calc Estimated GFR Random Glucose Calcium Magnesium Total Bilirubin AST ALT Alkaline Phosphatase Troponin I High Sens Total Protein Albumin 25-OH Vitamin D Total Urine Color Urine Appearance Urine pH Ur Specific [place] Urine Protein Urine Glucose (UA) Urine Ketones Urine Blood Urine Nitrite Ur Leukocyte Esterase Urine RBC Urine WBC Ur Squamous Epith Cells Urine Bacteria COVID-19 (RY) Negative COVID-19 Clin Com See Note Influenza Type A (LUZ) Negative Influenza Type B (LUZ) Negative Influenza A & B Note See Note 09/20/21 09/20/21 09/21/21 15:27 21:18 00:57 MCV MCH MCHC RDW Plt Count MPV Immature Gran % (Auto) Neut % (Auto) Lymph % (Auto) [place] % (Auto) Eos % (Auto) Baso % (Auto) Lymph # (Auto) [place] # (Auto) Eos # (Auto) Baso # (Auto) Abs Immat Gran (auto) Absolute Neuts (auto) Absolute Nucleated RBC Nucleated RBC % (auto) PT INR Anion Gap Estim Creat Clear Calc Estimated GFR Random Glucose Calcium 11.6 H Magnesium Total Bilirubin AST ALT Alkaline Phosphatase Troponin I High Sens Total Protein Albumin 25-OH Vitamin D Total 42.6 Urine Color YELLOW Urine Appearance CLOUDY Urine pH 6.0 Ur Specific [place] 1.020 Urine Protein NEG Urine Glucose (UA) NEG Urine Ketones NEG Urine Blood 2+ H Urine Nitrite POS H Ur Leukocyte Esterase 3+ H Urine RBC 30-49 H Urine WBC TNTC H Ur Squamous Epith Cells NONE Urine Bacteria 3+ COVID-19 (RY) COVID-19 Clin Com Influenza Type A (LUZ) Influenza Type B (LUZ) Influenza A & B Note 09/21/21 09/21/21 09/21/21 05:52 05:52 05:52 MCV 83.9 MCH 27.0 MCHC 32.2 RDW 14.6 Plt Count 202 MPV 11.6 Immature Gran % (Auto) 0.6 H Neut % (Auto) 71.3 Lymph % (Auto) 13.7 L [place] % (Auto) 12.6 H Eos % (Auto) 1.3 Baso % (Auto) 0.5 Lymph # (Auto) 1.1 L [place] # (Auto) 1.0 Eos # (Auto) 0.1 Baso # (Auto) 0.0 Abs Immat Gran (auto) 0.05 H Absolute Neuts (auto) 5.6 Absolute Nucleated RBC 0.000 Nucleated RBC % (auto) 0.0 PT 40.1 H INR 3.4 H Anion Gap 10 L Estim Creat Clear Calc 53.6 Estimated GFR > 60 Random Glucose 110 Calcium 11.3 H Magnesium Total Bilirubin AST ALT Alkaline Phosphatase Troponin I High Sens Total Protein Albumin 25-OH Vitamin D Total Urine Color Urine Appearance Urine pH Ur Specific [place] Urine Protein Urine Glucose (UA) Urine Ketones Urine Blood Urine Nitrite Ur Leukocyte Esterase Urine RBC Urine WBC Ur Squamous Epith Cells Urine Bacteria COVID-19 (RY) COVID-19 Clin Com Influenza Type A (LUZ) Influenza Type B (LUZ) Influenza A & B Note Microbiology Microbiology Results: Microbiology 09/20/21 15:57 Urine Culture - Preliminary Urine clean catch - Urine leos top Gram negative ryan Assessment and Plan (1) Abnormal chest CT: Status: Acute (2) Hypercalcemia: Status: Acute Plan hospital d#2 76yo M with remote smoking hx, HTN, HLD, CAD, pAF on warfarin, BPH presented with multiple falls/weakness, found to have endobronchial SHANNON mass, extensive mediastinal/hilar adenopathy, lytic lesions of T-spine, ribs, and skull; small pericardial effusion; hypercalcemia # RUL mass - Onc + Pulm consults. hold warfarin for bronchoscopy/biopsy # hyperCa of malignancy - Onc consult; IV hydration; consider pamidronate - iPTH + PTHrP pending # pericardial effusion - likely malignant. TTE. # UTI - follow UCx, ceftriaxone d#2 # pAF - continue metoprolol succinate - hold warfarin; monitor INR # HLD - continue statin # CAD - continue statin + metoprolol # BPH - continue tamsulosin # falls - PT consult # VTE ppx - warfarin Quality Stroke Does the patient have a stroke diagnosis?: No VTE Prior VTE?: No VTE Risk Level:: Medical - moderate - high VTE Device Contraindication: Treatment Not Indicated VTE Drug Contraindication: N/A - Med Ordered
[2021-09-21] MEDS: 0.9 % Sodium Chloride 1,000 ML 75 ML IVCONT (11:29)
--- NOTE | 2021-09-21 15:29 | PM.HEMONCCN ---
Subjective - Subjective Chief complaint: lung mass Patient: new to practice Consult date: 09/21/21 Primary Care Provider: Glenny Henderson PA-C HPI - Consult Narrative Narrative: Wali Fink is a 76 year old male admitted yesterday for weakness now found to have lytic bone disease, lung mass, mediastinal adenopathy and lytic bone disease. He is scheduled for bronchoscopy by pulmonary next week. He feels tired and weak. He denies pain or weight loss. Review of Systems - Constitutional Reports weakness - ENT Reports system reviewed and no additional complaints, except as documented - Cardiovascular Reports lightheadedness - Respiratory Reports cough, Reports dyspnea on exertion - Gastrointestinal Reports other - Genitourinary Genitourinary: Reports other - Musculoskeletal Reports other - Neurologic Reports system reviewed and no additional complaints, except as documented PMFSH Medical History: Medical History (Last Reviewed 09/21/21 @ 12:41 by Tan Blanchard, PT) Abnormal gait Arthritis Atrial fibrillation Atrial fibrillation Benign essential hypertension BPH (benign prostatic hyperplasia) Coronary arteriosclerosis in [place] artery Effusion, right knee Glaucoma Heart disease High cholesterol Myocardial infarct, old PAF (paroxysmal atrial fibrillation) Raynaud phenomenon RBBB (right bundle branch block) Family History: Family History (Last Reviewed 09/20/21 @ 14:49 by Xenia Irby CNP) Father No problems noted. Mother No problems noted. Surgical History: Surgical History (Last Reviewed 09/21/21 @ 12:41 by Tan Blanchard, PT) History of bunionectomy of left great toe History of cardiac radiofrequency ablation History of cystoscopy History of left inguinal hernia repair History of meniscectomy of right knee History of prostate surgery History of right knee surgery History of total knee replacement History of total right knee replacement (TKR) Social History: Social History (Last Reviewed 09/20/21 @ 14:49 by Xenia Irby CNP) Living Situation History: Household Members: Spouse Housing: House Are you a primary nurse care manager to a significant other at home: No Do you presently have visiting nurse or other home services: No Tobacco History: Patient Tobacco Use Status: Former Tobacco user Tobacco use type: Cigarette Smoke Quit Date: 1991 e-Cigarette/Vaping Use: Never Used Second Hand Smoke Exposure: No Occupation Assessmet: service: No Current occupational status: retired Current occupation: left handed Home Medications and Allergies Current Medications: Current Medications Acetaminophen (Acetaminophen 325 Mg Tablet) 650 mg PO Q6H PRN PRN Reason: Pain, Mild (Pain Scale 1-3) Benzonatate (Benzonatate 100 Mg Capsule) 100 mg PO TID PRN PRN Reason: Cough Brimonidine Tartrate (Brimonidine Tartrate 0.2% Oph 5 Ml Bottle) 1 drop EYE-BOTH BID [facility] Last Admin: 09/21/21 08:04 Dose: 1 drop Documented by: Dorzolamide/Timolol (Dorzolamide/Timolo 2.23%/0.68% 10 Ml Drbtl) 1 drop EYE-BOTH BID [facility] Last Admin: 09/21/21 08:09 Dose: 1 drop Documented by: Hydromorphone HCl (Hydromorphone Hcl 1 Mg/Ml Syringe) 0.5 mg IVPUSH Q4H PRN; Protocol PRN Reason: Breakthrough Pain Ceftriaxone Sodium 1 gm/ (Sodium Chloride) 50 mls @ 100 mls/hr IV Q24H KASSIDY Sodium Chloride (Ns) 1,000 mls @ 75 mls/hr IVCONT .[id number] [facility] Last Admin: 09/21/21 11:29 Dose: 75 mls/hr Documented by: Latanoprost (Latanoprost 0.005 % Ophth Loretta 2.5 Ml Drops) 1 drop EYE-BOTH BEDTIME [facility] Last Admin: 09/20/21 22:02 Dose: 1 drop Documented by: Melatonin (Melatonin 3 Mg Tablet) 6 mg PO BEDTIME PRN PRN Reason: Insomnia Metoprolol Succinate (Metoprolol Succinate Er 25 Mg Tab.Er.24h) 25 mg PO DAILY [facility]; Protocol Last Admin: 09/21/21 08:01 Dose: 25 mg Documented by: Oxycodone HCl (Oxycodone Hcl Immed Release 5 Mg Tablet) 5 mg PO BID PRN PRN Reason: Pain, Moderate Last Admin: 09/21/21 08:04 Dose: 5 mg Documented by: Pharmacy Consult (Consult Rx Perform Med Rec) 1 each MISCELLANE ONCE PRN PRN Reason: Consult order Pravastatin Sodium (Pravastatin Sodium 80 Mg Tablet) 80 mg PO BEDTIME [facility] Last Admin: 09/20/21 22:05 Dose: 80 mg Documented by: Senna (Sennosides 8.6 Mg Tablet) 17.2 mg PO BEDTIME PRN PRN Reason: Constipation Sodium Chloride (0.9 % Sodium Chloride Flush 3 Ml Syringe) 3 ml IVFLUSH QSHIFT [facility] Last Admin: 09/21/21 07:05 Dose: Not Given Documented by: Tamsulosin HCl (Tamsulosin Hcl 0.4 Mg Capsule) 0.4 mg PO DAILY@1700 [facility] Home Medications Medication Instructions Recorded Confirmed Type brimonidine 0.2 % eye drops 1 drp OPHTHALMIC (EYE) BID ml 10/31/20 09/20/21 History dorzolamide 22.3 mg-timolol 6.8 1 drp OPHTHALMIC (EYE) BID ml 10/31/20 09/20/21 History mg/mL eye drops latanoprost 0.005 % eye drops 1 drp OPHTHALMIC (EYE) BEDTIME 10/31/20 09/20/21 History pravastatin 80 mg tablet 80 mg PO BEDTIME 10/31/20 09/20/21 History warfarin 2.5 mg tablet 2.5 mg PO DAILY@1700 10/31/20 09/20/21 History tamsulosin 0.4 mg capsule 1 cap PO DAILY 05/01/21 09/20/21 History oxycodone 5 mg tablet 1 tab PO BID PRN 09/20/21 09/20/21 History Allergies Allergy/AdvReac Type Severity Reaction Status Date / Time ciprofloxacin [From CIPRO] Allergy Intermediate RASH Verified 09/03/21 08:27 Chocolate Allergy Sneezing Verified 09/03/21 08:27 milk Allergy Sneezing Verified 09/03/21 08:27 Physical Exam Vital signs: Vital Signs Temp 97.2 F 09/21/21 15:08 Pulse 70 09/21/21 15:08 Resp 18 09/21/21 15:08 BP 146/72 H 09/21/21 15:08 Pulse Ox 90 L 09/21/21 15:08 Intake & Output 09/20/21 09/21/21 09/21/21 18:59 06:59 18:59 Intake Total 1050 / 1050 609.167 / 609.167 Output Total 200 / 200 Balance 1050 / 1050 409.167 / 409.167 Urine Output (Average ml/kg/hr) 0.24 Intake: Intake, IV Amount 1050 / 1050 609.167 / 609.167 0.9 % Sodium Chloride 1,000 ml 1000 / 1000 @ 999 mls/hr IV .Q1H1M [facility] Rx#: [id number] cefTRIAXone sodium 1 gm In 0.9 50 / 50 % Sodium Chloride 50 ml @ 100 mls/hr IV ONCE ONE Rx#: [id number] Dextrose 5 % and 0.9 % NaCl 1, 609.167 / 609.167 000 ml @ 50 mls/hr IVCONT .Q20H [facility] Rx#:[id number] Output: Output, Urine Amount 200 / 200 Other: Breakfast % Eaten 50% Number of Unmeasured Voids 2 Urine Bathroom Weight 68.039 kg Weight 68.039 kg - Constitutional Present: no acute distress - Routine HEENT Exam Head: Present: atraumatic Eye: Present: normal appearance ENT: Present: mucous membranes moist - Routine Neck Exam Present: supple, full ROM - Routine Respiratory Exam Present: rhonchi - Routine Cardiovascular Exam Cardiovascular: Present: RRR - Routine Abdominal Exam Present: hypoactive bowel sounds - Routine Extremities Exam Present: full ROM Hem/Onc Consult Result - Labs CBC & Chem 7: 09/21/21 05:52 09/21/21 05:52 Labs: Short CBC 09/21/21 Range/Units 05:52 WBC 7.8 (4.8-10.8) X10*3/uL Hgb 13.6 L (14.0-18.0) g/dl Hct 42.3 (42.0-52.0) % Plt Count 202 (160-400) X10*3/uL BMP 09/20/21 09/21/21 09/21/21 15:07 00:57 05:52 Sodium 141 142 Potassium 4.5 3.9 Chloride 101 106 Carbon Dioxide 30 H 30 H BUN 24 H 21 H Creatinine 1.24 1.06 Calcium 12.1 H D 11.6 H 11.3 H Liver Function 09/20/21 Range/Units 15:07 Total Bilirubin 0.5 (0.0-1.0) mg/dL AST 27 (5-37) U/L ALT 11 (0-40) U/L Alkaline Phosphatase 127 H (39-117) U/L Albumin 4.1 (3.5-5.0) g/dL Urine 09/20/21 Range/Units 15:27 Urine Color YELLOW Urine Appearance CLOUDY Urine pH 6.0 (5.0-8.0) Ur Specific [place] 1.020 (1.005-1.025) Urine Protein NEG (NEG-TRACE) MG/DL Urine Glucose (UA) NEG (NEG) MG/DL Assessment and Plan Patient Active problem list reviewed?: Yes (1) Abnormal chest CT Status: Acute Assessment and plan: I agree with bronchoscopy. He should have sputa for cytology as well. Will await result of bronchoscopy. - Time Spent With Patient Time Spent with Patient (in minutes): 20
[2021-09-21] MEDS: Tamsulosin HCL 0.4 MG CAPSULE PO (18:13)
[2021-09-21] MEDS: cefTRIAXone sodium 1 GM in 0.9 % Sodium Chloride 50 ML IV (18:13)
[2021-09-21] MEDS: Latanoprost 0.005 % Ophth Sol 2.5 ML DROPS 1 DROP EYE-BOTH (20:09)
[2021-09-21] MEDS: Pravastatin Sodium 80 MG TABLET PO (20:09)
[2021-09-22] MEDS: 0.9 % Sodium Chloride 1,000 ML 75 ML IVCONT ×3 (01:00→21:49)
[2021-09-22 03:10] VITALS: BP 133/77; PULSE 74; RESP 18; TEMP 36.3; O2SAT 91
[2021-09-22 06:46] LABS: Hemoglobin 13.6 g/dl (14.0-18.0); Mean Corpuscular HGB Conc 31.6 g/dl (31.0-36.0); Mean Corpuscular Hemoglobin 27.4 pg (27.0-33.0); Mean Corpuscular Volume 86.5 fL (80.0-98.0); Mean Platelet Volume 11.5 fL (9.4-12.4); Platelet Count 199 X10*3/uL (160-400); Red Blood Count 4.97 X10*6/uL (4.60-5.80); Red Cell Distribution Width 14.8 % (11.0-16.0); White Blood Count 6.8 X10*3/uL (4.8-10.8)
[2021-09-22 07:15] LABS: Anion Gap 15 (12-20); Blood Urea Nitrogen 22 mg/dL (9-16); Carbon Dioxide 29 mmol/L (22-29); Chloride 103 mmol/L (96-108); Creatinine Clr Calc Pharmacy 53.1; Estimated Glomerular Filt Rate > 60; Glucose Random 84 mg/dL (60-115); Potassium 4.3 mmol/L (3.3-5.1); Sodium 143 mmol/L (135-145)
[2021-09-22 07:28] VITALS: BP 116/68; PULSE 75; RESP 20; TEMP 36.9; O2SAT 93
[2021-09-22 07:28] LABS: INTERNATIONAL NORM RATIO 2.5 (0.9-1.1); Prothrombin Time 29.3 SEC (9.9-13.0)
[2021-09-22] MEDS: Pamidronate Disodium 60 MG in 0.9 % Sodium Chloride 250 ML 10 MG IV (08:34)
[2021-09-22] MEDS: Metoprolol Succinate ER 25 MG TAB.ER.24H PO (08:34)
[2021-09-22] MEDS: Brimonidine Tartrate 0.2% Oph 5 ML BOTTLE 1 DROP EYE-BOTH ×2 (08:34→20:17)
[2021-09-22] MEDS: Dorzolamide/Timolo 2.23%/0.68% 10 ML DRBTL 1 DROP EYE-BOTH ×2 (08:34→20:17)
--- NOTE | 2021-09-22 10:54 | P.PNIM_ITS ---
Subjective Subjective Date of Service: 09/22/21 Interval History: back + rib pain, pain control adequate no dyspnea no hemoptysis or cough no headache Review of Systems Review of Systems: Yes all other systems are reviewed and are negative Physical Exam Vital Signs: Vital Signs: Last Vital Signs Temp 98.4 F 09/22/21 07:28 Pulse 75 09/22/21 07:28 Resp 20 09/22/21 07:28 BP 116/68 09/22/21 07:28 Pulse Ox 93 09/22/21 07:28 BMI result Body Mass Index 23.5 Gen: in no acute distress HEENT: sclera anicteric, moist mucus membranes Neck: supple Lungs: clear to auscultation bilaterally Heart: regular rate and rhythm, no murmurs Abd: soft, non-tender, non-distended Ext: no edema Skin: warm/well-perfused Neuro: alert and oriented x3, no focal findings Psych: appropriate affect Objective Data Active Medications Acetaminophen (Acetaminophen 325 Mg Tablet) 650 mg PO Q6H PRN PRN Reason: Pain, Mild (Pain Scale 1-3) Benzonatate (Benzonatate 100 Mg Capsule) 100 mg PO TID PRN PRN Reason: Cough Brimonidine Tartrate (Brimonidine Tartrate 0.2% Oph 5 Ml Bottle) 1 drop EYE- BOTH BID [facility] Last Admin: 09/22/21 08:34 Dose: 1 drop Documented by: HO Dorzolamide/Timolol (Dorzolamide/Timolo 2.23%/0.68% 10 Ml Drbtl) 1 drop EYE-BOT H BID [facility] Last Admin: 09/22/21 08:34 Dose: 1 drop Documented by: HO Hydromorphone HCl (Hydromorphone Hcl 1 Mg/Ml Syringe) 0.5 mg IVPUSH Q4H PRN; Protocol PRN Reason: Breakthrough Pain Ceftriaxone Sodium 1 gm/ (Sodium Chloride) 50 mls @ 100 mls/hr IV Q24H [facility] Last Infusion: 09/21/21 19:31 Dose: 0 mls/hr Documented by: HO Sodium Chloride (Ns) 1,000 mls @ 75 mls/hr IVCONT .[id number] [facility] Last Admin: 09/22/21 01:00 Dose: 75 mls/hr Documented by: DAWSON Pamidronate Disodium 60 mg/ (Sodium Chloride) 260 mls @ 10 mls/hr IV ONCE ONE Stop: 09/23/21 09:26 Last Admin: 09/22/21 08:34 Dose: 10 mls/hr Documented by: HO Latanoprost (Latanoprost 0.005 % Ophth Loretta 2.5 Ml Drops) 1 drop EYE-BOTH BEDTIME [facility] Last Admin: 09/21/21 20:09 Dose: 1 drop Documented by: DAWSON Melatonin (Melatonin 3 Mg Tablet) 6 mg PO BEDTIME PRN PRN Reason: Insomnia Metoprolol Succinate (Metoprolol Succinate Er 25 Mg Tab.Er.24h) 25 mg PO DAILY [facility]; Protocol Last Admin: 09/22/21 08:34 Dose: 25 mg Documented by: HO Oxycodone HCl (Oxycodone Hcl Immed Release 5 Mg Tablet) 5 mg PO BID PRN PRN Reason: Pain, Moderate Last Admin: 09/21/21 22:56 Dose: 5 mg Documented by: DAWSON Pharmacy Consult (Consult Rx Perform Med Rec) 1 each MISCELLANE ONCE PRN PRN Reason: Consult order Pravastatin Sodium (Pravastatin Sodium 80 Mg Tablet) 80 mg PO BEDTIME [facility] Last Admin: 09/21/21 20:09 Dose: 80 mg Documented by: DAWSON Senna (Sennosides 8.6 Mg Tablet) 17.2 mg PO BEDTIME PRN PRN Reason: Constipation Sodium Chloride (0.9 % Sodium Chloride Flush 3 Ml Syringe) 3 ml IVFLUSH QSHIFT [facility] Last Admin: 09/22/21 08:34 Dose: Not Given Documented by: HO Non-Admin Reason: IV Running Tamsulosin HCl (Tamsulosin Hcl 0.4 Mg Capsule) 0.4 mg PO DAILY@1700 [facility] Last Admin: 09/21/21 18:13 Dose: 0.4 mg Documented by: HO Labs CBC & Chem 7: 09/22/21 06:06 09/22/21 06:05 Labs: Laboratory Results - last 24 hr 09/22/21 09/22/21 09/22/21 06:05 06:06 06:06 MCV 86.5 MCH 27.4 MCHC 31.6 RDW 14.8 Plt Count 199 MPV 11.5 Absolute Nucleated RBC 0.000 Nucleated RBC % (auto) 0.0 PT 29.3 H INR 2.5 H Anion Gap 15 Estim Creat Clear Calc 53.1 Estimated GFR > 60 Random Glucose 84 Calcium 12.0 H D Microbiology Microbiology Results: Microbiology 09/20/21 15:57 Urine Culture - Final Urine clean catch - Urine leos top Pseudomonas aeruginosa Assessment and Plan (1) Abnormal chest CT: Status: Acute (2) Hypercalcemia: Status: Acute Plan hospital d#3 76yo M with remote smoking hx, HTN, HLD, CAD, pAF on warfarin, BPH presented with multiple falls/weakness, found to have endobronchial SHANNON mass, extensive mediastinal/hilar adenopathy, lytic lesions of T-spine, ribs, and skull; small pericardial effusion; hypercalcemia # RUL mass - Onc + Pulm consulted. hold warfarin for bronchoscopy/biopsy- will also give PO vit K today # hyperCa of malignancy - Onc consulted; IV hydration; will give IV pamidronate - iPTH + PTHrP pending - monitor SCa # pericardial effusion - likely malignant. TTE. # UTI, Pseudomonas aeurignosa - d/c ceftriaxone, start meropenem d#1 [rash with cipro- will avoid FQs] # pAF - continue metoprolol succinate - hold warfarin; monitor INR # HLD - continue statin # CAD - continue statin + metoprolol # BPH - continue tamsulosin # falls - PT consulted; HVNA vs STR # VTE ppx - warfarin In my clinical judgment, the patient requires continued hospitalization for the following reasons: IV pamidronate, IV hydration, bronchoscopy Quality Stroke Does the patient have a stroke diagnosis?: No VTE Prior VTE?: No VTE Risk Level:: Medical - moderate - high VTE Device Contraindication: Treatment Not Indicated VTE Drug Contraindication: N/A - Med Ordered
[2021-09-22] MEDS: Phytonadione (Vit K1) Oral 10 MG/ML AMPUL 5 MG PO (11:30)
[2021-09-22 11:40] VITALS: BP 146/77; PULSE 85; RESP 20; TEMP 36.9; O2SAT 94
--- NOTE | 2021-09-22 11:47 | P.CONPL_ITS ---
History of Present Illness History of Present Illness Consult date: 09/22/21 Chief complaint: UTI Narrative: This is an in patient pulmonary consultation. The patient is a 76-year-old male with a past medical history of hypertension, hyperlipidemia, CAD, paroxysmal AFib on Coumadin, BPH, arthritis, Raynaud phenomena, history of total knee replacement; presented to the hospital today with a chief complaint? chest pain/fall. Patient reported that he fell near the car about a month ago, tripped and fell on his left side, hit his chest to car, denies any head strike or loss of consciousness.? Followed by he developed chest pain on the left lateral chest wall. In the ED, llab showed INR of 3.1; urinalysis abnormal consistent UTI- given ceftriaxone; CT chest showed lobulated density measuring 2.3 cm may represent endobronchial lesion versus mucous plugging also noted extensive lymph adenopathy concerning for neoplasm; new lytic lesions on the thoracic spine noted; also concern for old healed fractures of the ribs secondary to lytic bone lesions persist metastatic disease.? Small pericardial effusion. Review of Systems Review of Systems: Constitutional: Positive weakness. Positive fatigue. No weight loss, fever, chills HEENT: No visual loss, blurred vision, double vision or yellow sclera. No hearing loss, sneezing, congestion, runny nose or sore throat. Skin: No rash or itching. Cardiovascular: Positive chest pain No palpitations or pedal edema. Respiratory: No shortness of breath, cough or sputum production. Gastrointestinal: No anorexia, nausea, vomiting or diarrhea. No abdominal pain or blood in stool. Genitourinary: No burning micturition. No urinary frequency or incontinence. Neurologic: No headache, dizziness, syncope, unilateral weakness, ataxia, numbness or tingling in the extremities. No change in bowel or bladder control. Musculoskeletal: Positive back pain No muscle pain joint pain or stiffness. Hematologic: No bleeding or bruising. Lymphatics: No enlarged lymph nodes. Psychiatric:No depression or anxiety. Endocrine: No polyuria or polydipsia. Yes all other systems are reviewed and are negative [facility] Past Medical History Medical History (Updated 09/22/21 @ 11:52 by Shadi Reynoso MD) Abnormal gait Arthritis Atrial fibrillation Atrial fibrillation Benign essential hypertension BPH (benign prostatic hyperplasia) Coronary arteriosclerosis in [place] artery Effusion, right knee Glaucoma Heart disease High cholesterol Lymphadenopathy, mediastinal Lytic lesion of bone on x-ray Myocardial infarct, old PAF (paroxysmal atrial fibrillation) Raynaud phenomenon RBBB (right bundle branch block) Family History Family History Father No problems noted. Mother No problems noted. Surgical History Surgical History (Updated 09/21/21 @ 15:36 by Trent Lau MD) History of bunionectomy of left great toe History of cardiac radiofrequency ablation History of cystoscopy History of left inguinal hernia repair History of meniscectomy of right knee History of prostate surgery History of right knee surgery History of total knee replacement History of total right knee replacement (TKR) Social History Social History Household Members: Spouse Housing: House Are you a primary medicare contact specialist to a significant other at home: No Do you presently have visiting nurse or other home services: No Alcohol intake: never Patient Tobacco Use Status: Former Tobacco user Quit Date: 1991 Tobacco use type: Cigarette e-Cigarette/Vaping Use: Never Used Second Hand Smoke Exposure: No service: No Current occupational status: retired Current occupation: left handed Meds Allergies Allergy/AdvReac Type Severity Reaction Status Date / Time ciprofloxacin [From CIPRO] Allergy Intermediate RASH Verified 09/03/21 08:27 Chocolate Allergy Sneezing Verified 09/03/21 08:27 milk Allergy Sneezing Verified 09/03/21 08:27 Active Medications: Current Medications Acetaminophen (Acetaminophen 325 Mg Tablet) 650 mg PO Q6H PRN PRN Reason: Pain, Mild (Pain Scale 1-3) Benzonatate (Benzonatate 100 Mg Capsule) 100 mg PO TID PRN PRN Reason: Cough Brimonidine Tartrate (Brimonidine Tartrate 0.2% Oph 5 Ml Bottle) 1 drop EYE- BOTH BID [facility] Last Admin: 09/22/21 08:34 Dose: 1 drop Documented by: Dorzolamide/Timolol (Dorzolamide/Timolo 2.23%/0.68% 10 Ml Drbtl) 1 drop EYE- BOTH BID [facility] Last Admin: 09/22/21 08:34 Dose: 1 drop Documented by: Hydromorphone HCl (Hydromorphone Hcl 1 Mg/Ml Syringe) 0.5 mg IVPUSH Q4H PRN; Protocol PRN Reason: Breakthrough Pain Sodium Chloride (Ns) 1,000 mls @ 75 mls/hr IVCONT .[id number] [facility] Last Admin: 09/22/21 01:23 Dose: Not Given Documented by: Pamidronate Disodium 60 mg/ (Sodium Chloride) 260 mls @ 10 mls/hr IV ONCE ONE Stop: 09/23/21 09:26 Last Admin: 09/22/21 08:34 Dose: 10 mls/hr Documented by: Meropenem 1 gm/ Sodium (Chloride) 100 mls @ 200 mls/hr IV Q8H [facility] Latanoprost (Latanoprost 0.005 % Ophth Loretta 2.5 Ml Drops) 1 drop EYE-BOTH BEDTIME [facility] Last Admin: 09/21/21 20:09 Dose: 1 drop Documented by: Melatonin (Melatonin 3 Mg Tablet) 6 mg PO BEDTIME PRN PRN Reason: Insomnia Metoprolol Succinate (Metoprolol Succinate Er 25 Mg Tab.Er.24h) 25 mg PO DAILY [facility]; Protocol Last Admin: 09/22/21 08:34 Dose: 25 mg Documented by: Oxycodone HCl (Oxycodone Hcl Immed Release 5 Mg Tablet) 5 mg PO BID PRN PRN Reason: Pain, Moderate Last Admin: 09/21/21 22:56 Dose: 5 mg Documented by: Pharmacy Consult (Consult Rx Perform Med Rec) 1 each MISCELLANE ONCE PRN PRN Reason: Consult order Pravastatin Sodium (Pravastatin Sodium 80 Mg Tablet) 80 mg PO BEDTIME [facility] Last Admin: 09/21/21 20:09 Dose: 80 mg Documented by: Senna (Sennosides 8.6 Mg Tablet) 17.2 mg PO BEDTIME PRN PRN Reason: Constipation Sodium Chloride (0.9 % Sodium Chloride Flush 3 Ml Syringe) 3 ml IVFLUSH QSHIFT [facility] Last Admin: 09/22/21 08:34 Dose: Not Given Documented by: Tamsulosin HCl (Tamsulosin Hcl 0.4 Mg Capsule) 0.4 mg PO DAILY@1700 [facility] Last Admin: 09/21/21 18:13 Dose: 0.4 mg Documented by: Home Medications Medication Instructions Recorded Confirmed Last Taken Type brimonidine 0.2 % eye drops 1 drp OPHTHALMIC (EYE) BID ml 10/31/20 09/20/21 09/19/21 History dorzolamide 22.3 mg-timolol 6.8 1 drp OPHTHALMIC (EYE) BID ml 10/31/20 09/20/21 09/19/21 History mg/mL eye drops latanoprost 0.005 % eye drops 1 drp OPHTHALMIC (EYE) BEDTIME 10/31/20 09/20/21 09/19/21 History pravastatin 80 mg tablet 80 mg PO BEDTIME 10/31/20 09/20/21 09/19/21 History warfarin 2.5 mg tablet 2.5 mg PO DAILY@1700 10/31/20 09/20/21 09/19/21 History tamsulosin 0.4 mg capsule 1 cap PO DAILY 05/01/21 09/20/21 09/19/21 History oxycodone 5 mg tablet 1 tab PO BID PRN 09/20/21 09/20/21 09/19/21 History Physical Exam Vital Signs: Vital Signs: Last Vital Signs Temp 98.5 F 09/22/21 11:40 Pulse 85 09/22/21 11:40 Resp 20 09/22/21 11:40 BP 146/77 H 09/22/21 11:40 Pulse Ox 94 09/22/21 11:40 BMI result Body Mass Index 23.5 Const: General: alert Neck: Neck: Yes normal visual inspection, Yes full ROM and Yes no lymphadenopathy Chest: Chest palpation & inspection: normal inspection of the chest, localized rib tenderness with anteroposterior compression and tenderness rib Resp: Auscultation: diminished lung sounds Cardio: Rate: regular rate Rhythm: regular rhythm Heart sounds: S1 normal heart sound present and S2 normal heart sound present GI: Palpation (GI): Soft to palpation and nontender Auscultation: normal bowel sounds Skin: General skin exam: rashes and/or lesions noted Results Laboratory Findings CBC and BMP: 09/22/21 06:06 09/22/21 06:05 ABG, PT/INR, D-dimer: PT/INR, D-dimer PT 29.3 SEC (9.9-13.0) H 09/22/21 06:06 INR 2.5 (0.9-1.1) H 09/22/21 06:06 Abnormal lab findings: Abnormal Labs 09/20/21 09/20/21 09/20/21 15:07 15:07 15:07 Hgb Immature Gran % (Auto) 0.6 H Lymph % (Auto) 16.5 L Ellis % (Auto) 12.5 H Lymph # (Auto) Abs Immat Gran (auto) 0.04 H PT 36.1 H INR 3.1 H Carbon Dioxide 30 H Anion Gap BUN 24 H Calcium 12.1 H D Alkaline Phosphatase 127 H Urine Blood Urine Nitrite Ur Leukocyte Esterase Urine RBC Urine WBC 09/20/21 09/21/21 09/21/21 15:27 00:57 05:52 Hgb 13.6 L Immature Gran % (Auto) 0.6 H Lymph % (Auto) 13.7 L Ellis % (Auto) 12.6 H Lymph # (Auto) 1.1 L Abs Immat Gran (auto) 0.05 H PT INR Carbon Dioxide Anion Gap BUN Calcium 11.6 H Alkaline Phosphatase Urine Blood 2+ H Urine Nitrite POS H Ur Leukocyte Esterase 3+ H Urine RBC 30-49 H Urine WBC TNTC H 09/21/21 09/21/21 09/22/21 05:52 05:52 06:05 Hgb Immature Gran % (Auto) Lymph % (Auto) Ellis % (Auto) Lymph # (Auto) Abs Immat Gran (auto) PT 40.1 H INR 3.4 H Carbon Dioxide 30 H Anion Gap 10 L BUN 21 H 22 H Calcium 11.3 H 12.0 H D Alkaline Phosphatase Urine Blood Urine Nitrite Ur Leukocyte Esterase Urine RBC Urine WBC 09/22/21 09/22/21 06:06 06:06 Hgb 13.6 L Immature Gran % (Auto) Lymph % (Auto) Ellis % (Auto) Lymph # (Auto) Abs Immat Gran (auto) PT 29.3 H INR 2.5 H Carbon Dioxide Anion Gap BUN Calcium Alkaline Phosphatase Urine Blood Urine Nitrite Ur Leukocyte Esterase Urine RBC Urine WBC Microbiology: Microbiology 09/20/21 15:57 Urine clean catch - Urine leos top Urine Culture - Final Pseudomonas aeruginosa Assessment and Plan (1) Lung mass: Status: Acute (2) Lymphadenopathy, mediastinal: Status: Acute (3) Lytic lesion of bone on x-ray: Status: Acute Plan NPO tomorrow reversing INR plan for EBUS/bronchoscopy to assess endobronchial disease and also sample lymphnodes Procedures Date of Service Date of Service: 09/22/21
[2021-09-22] MEDS: oxyCODONE HCl Immed Release 5 MG TABLET PO (13:21)
[2021-09-22 15:40] VITALS: BP 135/75; PULSE 82; RESP 18; TEMP 36.8; O2SAT 92
[2021-09-22] MEDS: Tamsulosin HCL 0.4 MG CAPSULE PO (17:01)
[2021-09-22 18:57] VITALS: BP 113/64; PULSE 68; RESP 18; TEMP 36.8; O2SAT 93
[2021-09-22] MEDS: Pravastatin Sodium 80 MG TABLET PO (20:17)
[2021-09-22] MEDS: Latanoprost 0.005 % Ophth Sol 2.5 ML DROPS 1 DROP EYE-BOTH (20:17)
[2021-09-22] MEDS: 0.9 % Sodium Chloride Flush 3 ML SYRINGE IVFLUSH (20:18)
[2021-09-22] MEDS: HYDROmorphone HCl 1 MG/ML SYRINGE 0.5 MG IVPUSH (20:46)
[2021-09-22 23:55] VITALS: BP 140/73; PULSE 97; RESP 18; TEMP 36.2; O2SAT 95
[2021-09-23 04:00] VITALS: BP 135/74; PULSE 72; RESP 18; TEMP 36.8; O2SAT 94
[2021-09-23] MEDS: HYDROmorphone HCl 1 MG/ML SYRINGE 0.5 MG IVPUSH ×3 (04:43→23:34)
--- NOTE | 2021-09-23 07:00 | CA_ITS ---
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 The visually estimated ejection fraction is between 55-60%. - There are no definitive echocardiographic findings of tamponade physiology. Small to moderate pericardial effusion more prominent along the anterolateral wall. Findings Left Ventricle Normal left ventricular size, thickness, systolic function, and wall motion. The visually estimated ejection fraction is between 55-60%. Right Ventricle Normal right ventricular cavity size and systolic function. Tricuspid Valve Mildly elevated right atrial pressure. There is no evidence of pulmonary hypertension. Venous The inferior vena cava is dilated and collapses greater than 50% with inspiration. Pericardium/Pleural There are no definitive echocardiographic findings of tamponade physiology. Small to moderate pericardial effusion more prominent along the anterolateral wall. Measurements 2D Linear Measurements IVSd: 1.04 0.6-0.9/0.6-1.0 cm LVIDd: 5.26 3.9-5.3/4.2-5.9 cm LVIDd Index: 2.94 2.4-3.2/2.2-3.1 cm/m2 LVIDs: 4.24 2.0-3.6 cm LVPWd: 0.86 0.7-1.1 cm LV Mass: 230.71 67-162/88-224 g LV Mass Index: 128.89 43-95/49-115 g/m2 Right Ventricle TAPSE (mm): 20.90 Tricuspid Valve TR Pk Sulaiman: 2.33 TR Pk Grad: 22.00 RA Press: 8.00 RVSP: 30.00 Updated in Other Vendor System with Status of Final Anuj Cheng MD electronically signed on 09/24/2021 4:52:51 PM with status of Final
[2021-09-23 07:03] LABS: INTERNATIONAL NORM RATIO 1.4 (0.9-1.1); Prothrombin Time 15.8 SEC (9.9-13.0)
[2021-09-23 07:24] VITALS: BP 144/65; PULSE 63; RESP 18; TEMP 36.6; O2SAT 95
[2021-09-23 07:33] LABS: Anion Gap 12 (12-20); Blood Urea Nitrogen 23 mg/dL (9-16); Calcium 11.2 mg/dL (8.4-10.2); Carbon Dioxide 28 mmol/L (22-29); Chloride 105 mmol/L (96-108); Creatinine Clr Calc Pharmacy 55.8; Estimated Glomerular Filt Rate > 60; Glucose Random 99 mg/dL (60-115); Potassium 3.9 mmol/L (3.3-5.1); Sodium 141 mmol/L (135-145)
[2021-09-23] MEDS: Brimonidine Tartrate 0.2% Oph 5 ML BOTTLE 1 DROP EYE-BOTH ×2 (08:09→20:14)
[2021-09-23] MEDS: Dorzolamide/Timolo 2.23%/0.68% 10 ML DRBTL 1 DROP EYE-BOTH ×2 (08:09→20:14)
[2021-09-23] MEDS: Metoprolol Succinate ER 25 MG TAB.ER.24H PO (08:10)
[2021-09-23 08:11] LABS: Magnesium 1.6 mg/dL (1.6-2.6)
[2021-09-23] MEDS: oxyCODONE HCl Immed Release 5 MG TABLET PO (09:51)
--- NOTE | 2021-09-23 10:11 | HO.PM.IMPN ---
Subjective Subjective Date of Service: 09/23/21 Interval History: C/o back pain No cough or dyspnea Bronchoscopy + EBUS scheduled for tomorrow Review of Systems Review of Systems: Yes all other systems are reviewed and are negative Physical Exam Vital Signs: Vital Signs: Last Vital Signs Temp 97.9 F 09/23/21 07:24 Pulse 63 09/23/21 07:24 Resp 18 09/23/21 07:24 BP 144/65 H 09/23/21 07:24 Pulse Ox 95 09/23/21 07:24 BMI result Body Mass Index 23.5 Gen: in no acute distress HEENT: sclera anicteric, moist mucus membranes Neck: supple Lungs: clear to auscultation bilaterally Heart: regular rate and rhythm, no murmurs Abd: soft, non-tender, non-distended Ext: no edema Skin: warm/well-perfused Neuro: alert and oriented x3, no focal findings Psych: appropriate affect Objective Data Active Medications Acetaminophen (Acetaminophen 325 Mg Tablet) 650 mg PO Q6H PRN PRN Reason: Pain, Mild (Pain Scale 1-3) Benzonatate (Benzonatate 100 Mg Capsule) 100 mg PO TID PRN PRN Reason: Cough Brimonidine Tartrate (Brimonidine Tartrate 0.2% Oph 5 Ml Bottle) 1 drop EYE-BOTH BID [facility] Last Admin: 09/23/21 08:09 Dose: 1 drop Documented by: JERO Dorzolamide/Timolol (Dorzolamide/Timolo 2.23%/0.68% 10 Ml Drbtl) 1 drop EYE-BOTH BID [facility] Last Admin: 09/23/21 08:09 Dose: 1 drop Documented by: JERO Hydromorphone HCl (Hydromorphone Hcl 1 Mg/Ml Syringe) 0.5 mg IVPUSH Q4H PRN; Protocol PRN Reason: Breakthrough Pain Last Admin: 09/23/21 04:43 Dose: 0.5 mg Documented by: OSMAN Sodium Chloride (Ns) 1,000 mls @ 75 mls/hr IVCONT .[id number] [facility] Last Admin: 09/22/21 21:49 Dose: 75 mls/hr Documented by: OMSAN Meropenem 1 gm/ Sodium (Chloride) 100 mls @ 200 mls/hr IV Q8H [facility] Last Admin: 09/23/21 09:53 Dose: 200 mls/hr Documented by: JERO Latanoprost (Latanoprost 0.005 % Ophth Loretta 2.5 Ml Drops) 1 drop EYE-BOTH BEDTIME [facility] Last Admin: 09/22/21 20:17 Dose: 1 drop Documented by: OSMAN Melatonin (Melatonin 3 Mg Tablet) 6 mg PO BEDTIME PRN PRN Reason: Insomnia Metoprolol Succinate (Metoprolol Succinate Er 25 Mg Tab.Er.24h) 25 mg PO DAILY [facility]; Protocol Last Admin: 09/23/21 08:10 Dose: 25 mg Documented by: JERO Oxycodone HCl (Oxycodone Hcl Immed Release 5 Mg Tablet) 5 mg PO BID PRN PRN Reason: Pain, Moderate Last Admin: 09/23/21 09:51 Dose: 5 mg Documented by: JERO Pharmacy Consult (Consult Rx Perform Med Rec) 1 each MISCELLANE ONCE PRN PRN Reason: Consult order Pravastatin Sodium (Pravastatin Sodium 80 Mg Tablet) 80 mg PO BEDTIME [facility] Last Admin: 09/22/21 20:17 Dose: 80 mg Documented by: OSMAN Senna (Sennosides 8.6 Mg Tablet) 17.2 mg PO BEDTIME PRN PRN Reason: Constipation Sodium Chloride (0.9 % Sodium Chloride Flush 3 Ml Syringe) 3 ml IVFLUSH QSHIFT [facility] Last Admin: 09/23/21 08:09 Dose: Not Given Documented by: JERO Non-Admin Reason: IV Running Tamsulosin HCl (Tamsulosin Hcl 0.4 Mg Capsule) 0.4 mg PO DAILY@1700 [facility] Last Admin: 09/22/21 17:01 Dose: 0.4 mg Documented by: HO Labs CBC & Chem 7: 09/22/21 06:06 09/23/21 05:59 Labs: Laboratory Results - last 24 hr 09/23/21 09/23/21 05:59 05:59 PT 15.8 H INR 1.4 H Anion Gap 12 Estim Creat Clear Calc 55.8 Estimated GFR > 60 Random Glucose 99 Calcium 11.2 H D Phosphorus 3.0 Magnesium 1.6 Microbiology Microbiology Results: Microbiology 09/20/21 15:57 Urine Culture - Final Urine clean catch - Urine leos top Pseudomonas aeruginosa Assessment and Plan (1) Abnormal chest CT: Status: Acute (2) Hypercalcemia: Status: Acute Plan hospital d#4 76yo M with remote smoking hx, HTN, HLD, CAD, pAF on warfarin, BPH presented with multiple falls/weakness, found to have endobronchial SHANNON mass, extensive mediastinal/hilar adenopathy, lytic lesions of T-spine, ribs, and skull; small pericardial effusion; hypercalcemia # RUL mass - Onc + Pulm consulted. hold warfarin for bronchoscopy/biopsy/EBUS to be done tomorrow # hyperCa of malignancy - Onc consulted; IV hydration + given 1 dose IV pamidronate - iPTH + PTHrP pending - monitor SCa, PO4 # pericardial effusion - likely malignant. TTE. # UTI, Pseudomonas aeurignosa - d/c ceftriaxone, start meropenem d#2 [rash with cipro- will avoid FQs], ID consult pending # pAF - continue metoprolol succinate - hold warfarin; monitor INR # HLD - continue statin # CAD - continue statin + metoprolol # BPH - continue tamsulosin # falls - PT consulted; HVNA vs STR # VTE ppx - warfarin on hold In my clinical judgment, the patient requires continued hospitalization for the following reasons: bronchoscopy/EBUS, IV ABX Quality Stroke Does the patient have a stroke diagnosis?: No VTE Prior VTE?: No VTE Risk Level:: Medical - moderate - high VTE Device Contraindication: Treatment Not Indicated VTE Drug Contraindication: N/A - Med Ordered
[2021-09-23 11:31] VITALS: BP 148/63; PULSE 68; RESP 18; TEMP 36.5; O2SAT 95
[2021-09-23 12:47] LABS: PTHI <6 pg/mL (16-77)
--- NOTE | 2021-09-23 13:19 | W.PM.IDCN ---
History of Present Illness Data of Consult Service Date: 09/23/21 Requesting physician: Lucho Vaca Primary Care Provider: Glenny Henderson PA-C HPI Reason for consult: pyuria,Pseudomonas urine He presents with weakness after fall. He has urinary retention but denies changes in urination pattern Review of Systems Review of Systems: Yes all other systems are reviewed and are negative [facility] Past Medical History Medical History (Updated 10/05/21 @ 00:02 by Skinny Carrington) Abnormal gait Arthritis Benign essential hypertension BPH (benign prostatic hyperplasia) Coronary arteriosclerosis in [place] artery Effusion, right knee Glaucoma Heart disease High cholesterol Lymphadenopathy, mediastinal Lytic lesion of bone on x-ray Myocardial infarct, old PAF (paroxysmal atrial fibrillation) Raynaud phenomenon RBBB (right bundle branch block) Family History Family History Father No problems noted. Mother No problems noted. Family history: reviewed and not pertinent Surgical History Surgical History History of bronchoscopy (~2021) History of bunionectomy of left great toe History of cardiac radiofrequency ablation (~2008) History of cystoscopy History of left inguinal hernia repair History of meniscectomy of right knee (~2012) History of prostate surgery (~2019) History of right knee surgery (~2020) History of total right knee replacement (TKR) (~2015) Social History Social History (Updated 10/04/21 @ 13:32 by Joan Hdez CMA) Household Members: Spouse Housing: House Are you a primary regular senior care provider to a significant other at home: No Do you presently have visiting nurse or other home services: No Alcohol intake: never Patient Tobacco Use Status: Former Tobacco user Quit Date: 1991 Tobacco use type: Cigarette e-Cigarette/Vaping Use: Never Used Second Hand Smoke Exposure: No service: No Current occupational status: retired Current occupation: left handed Meds Allergies Allergy/AdvReac Type Severity Reaction Status Date / Time ciprofloxacin [From CIPRO] Allergy Intermediate RASH Verified 10/04/21 13:32 Chocolate Allergy Sneezing Verified 10/04/21 13:32 milk Allergy Sneezing Verified 10/04/21 13:32 Active Medications: Current Medications Acetaminophen (Acetaminophen 325 Mg Tablet) 650 mg PO Q6H PRN PRN Reason: Pain, Mild (Pain Scale 1-3) Benzonatate (Benzonatate 100 Mg Capsule) 100 mg PO TID PRN PRN Reason: Cough Brimonidine Tartrate (Brimonidine Tartrate 0.2% Oph 5 Ml Bottle) 1 drop EYE-BOTH BID [facility] Last Admin: 09/23/21 08:09 Dose: 1 drop Documented by: Dorzolamide/Timolol (Dorzolamide/Timolo 2.23%/0.68% 10 Ml Drbtl) 1 drop EYE-BOTH BID [facility] Last Admin: 09/23/21 08:09 Dose: 1 drop Documented by: Hydromorphone HCl (Hydromorphone Hcl 1 Mg/Ml Syringe) 0.5 mg IVPUSH Q4H PRN; Protocol PRN Reason: Breakthrough Pain Last Admin: 09/23/21 04:43 Dose: 0.5 mg Documented by: Sodium Chloride (Ns) 1,000 mls @ 75 mls/hr IVCONT .[id number] [facility] Last Infusion: 09/23/21 11:34 Dose: Infused Documented by: Meropenem 1 gm/ Sodium (Chloride) 100 mls @ 200 mls/hr IV Q8H [facility] Last Infusion: 09/23/21 10:31 Dose: Infused Documented by: Latanoprost (Latanoprost 0.005 % Ophth Loretta 2.5 Ml Drops) 1 drop EYE-BOTH BEDTIME [facility] Last Admin: 09/22/21 20:17 Dose: 1 drop Documented by: Melatonin (Melatonin 3 Mg Tablet) 6 mg PO BEDTIME PRN PRN Reason: Insomnia Metoprolol Succinate (Metoprolol Succinate Er 25 Mg Tab.Er.24h) 25 mg PO DAILY [facility]; Protocol Last Admin: 09/23/21 08:10 Dose: 25 mg Documented by: Oxycodone HCl (Oxycodone Hcl Immed Release 5 Mg Tablet) 5 mg PO BID PRN PRN Reason: Pain, Moderate Last Admin: 09/23/21 09:51 Dose: 5 mg Documented by: Pharmacy Consult (Consult Rx Perform Med Rec) 1 each MISCELLANE ONCE PRN PRN Reason: Consult order Pravastatin Sodium (Pravastatin Sodium 80 Mg Tablet) 80 mg PO BEDTIME [facility] Last Admin: 09/22/21 20:17 Dose: 80 mg Documented by: Senna (Sennosides 8.6 Mg Tablet) 17.2 mg PO BEDTIME PRN PRN Reason: Constipation Sodium Chloride (0.9 % Sodium Chloride Flush 3 Ml Syringe) 3 ml IVFLUSH QSHIFT [facility] Last Admin: 09/23/21 08:09 Dose: Not Given Documented by: Tamsulosin HCl (Tamsulosin Hcl 0.4 Mg Capsule) 0.4 mg PO DAILY@1700 [facility] Last Admin: 09/22/21 17:01 Dose: 0.4 mg Documented by: Home Medications Medication Instructions Recorded Confirmed Last Taken Type brimonidine 0.2 % eye drops 1 drp OPHTHALMIC (EYE) BID ml 10/31/20 10/04/21 09/19/21 History dorzolamide 22.3 mg-timolol 6.8 1 drp OPHTHALMIC (EYE) BID ml 10/31/20 10/04/21 09/19/21 History mg/mL eye drops latanoprost 0.005 % eye drops 1 drp OPHTHALMIC (EYE) BEDTIME 10/31/20 10/04/21 09/19/21 History pravastatin 80 mg tablet 80 mg PO BEDTIME 10/31/20 10/04/21 09/19/21 History warfarin 2.5 mg tablet 2.5 mg PO DAILY@1700 10/31/20 10/04/21 09/19/21 History tamsulosin 0.4 mg capsule 1 cap PO DAILY 05/01/21 10/04/21 09/19/21 History bisacodyl 10 mg rectal suppository 10 mg TX DAILY PRN 10/04/21 10/04/21 Unknown History (Dulcolax (bisacodyl)) Physical Exam Vital Signs: Vital Signs: Last Vital Signs Temp 97.7 F 09/23/21 11:31 Pulse 68 09/23/21 11:31 Resp 18 09/23/21 11:31 BP 148/63 H 09/23/21 11:31 Pulse Ox 95 09/23/21 11:31 BMI result Body Mass Index 23.5 Const: General: cooperative Eyes: General: appearance normal, both eyes and all related structures Resp: Effort & Inspection: normal respiratory effort Cardio: Rate: regular rate Rhythm: regular rhythm GI: Palpation (GI): Soft to palpation and nontender Skin: General skin exam: no rashes or lesions noted Results Labs CBC & Chem 7: 09/22/21 06:06 09/24/21 06:15 Labs: BMP 09/23/21 05:59 Sodium 141 Potassium 3.9 Chloride 105 Carbon Dioxide 28 BUN 23 H Creatinine 1.02 Calcium 11.2 H D Microbiology Microbiology Results: Microbiology 09/20/21 15:57 Urine clean catch - Urine leos top Urine Culture - Final Pseudomonas aeruginosa Assessment and Plan (1) Urinary tract infection: Status: Acute Pseudomonas in urine can be cause of symptoms/encephalopathy 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
[2021-09-23 15:48] VITALS: BP 148/65; PULSE 62; RESP 18; TEMP 36.5; O2SAT 92
[2021-09-23] MEDS: 0.9 % Sodium Chloride Flush 3 ML SYRINGE IVFLUSH ×2 (16:00→20:14)
[2021-09-23] MEDS: 0.9 % Sodium Chloride 1,000 ML 75 ML IVCONT (16:00)
[2021-09-23] MEDS: Tamsulosin HCL 0.4 MG CAPSULE PO (16:09)
[2021-09-23 19:33] VITALS: BP 147/73; PULSE 76; RESP 18; TEMP 36.8; O2SAT 93
[2021-09-23] MEDS: Pravastatin Sodium 80 MG TABLET PO (20:13)
[2021-09-23] MEDS: Latanoprost 0.005 % Ophth Sol 2.5 ML DROPS 1 DROP EYE-BOTH (20:14)
[2021-09-24] VITALS (13 sets, daily range): BP systolic 112–143; BP diastolic 57–92; PULSE 63–76; RESP 14–20; TEMP 36.2–37.1; O2SAT 90–98
[2021-09-24] MEDS: HYDROmorphone HCl 1 MG/ML SYRINGE 0.5 MG IVPUSH (03:55)
[2021-09-24] MEDS: 0.9 % Sodium Chloride 1,000 ML 75 ML IVCONT (06:28)
[2021-09-24 06:51] LABS: INTERNATIONAL NORM RATIO 1.3 (0.9-1.1); Prothrombin Time 14.3 SEC (9.9-13.0)
[2021-09-24 06:56] LABS: Anion Gap 13 (12-20); Blood Urea Nitrogen 22 mg/dL (9-16); Calcium 10.6 mg/dL (8.4-10.2); Carbon Dioxide 28 mmol/L (22-29); Chloride 105 mmol/L (96-108); Creatinine Clr Calc Pharmacy 56.9; Estimated Glomerular Filt Rate > 60; Glucose Random 95 mg/dL (60-115); Magnesium 1.6 mg/dL (1.6-2.6); Potassium 3.9 mmol/L (3.3-5.1); Sodium 142 mmol/L (135-145)
[2021-09-24] MEDS: 0.9 % Sodium Chloride Flush 3 ML SYRINGE IVFLUSH ×3 (08:46→20:45)
[2021-09-24] MEDS: Brimonidine Tartrate 0.2% Oph 5 ML BOTTLE 1 DROP EYE-BOTH ×2 (08:47→20:45)
[2021-09-24] MEDS: Dorzolamide/Timolo 2.23%/0.68% 10 ML DRBTL 1 DROP EYE-BOTH ×2 (08:47→20:45)
[2021-09-24] MEDS: Metoprolol Succinate ER 25 MG TAB.ER.24H PO (08:47)
--- NOTE | 2021-09-24 12:43 | MHC.SHP ---
Pre-Procedural Eval Section A Date of Service: 09/24/21 The patient is an INPATIENT: Yes Section B Chief Complaint: UTI Allergies: Allergies Allergy/AdvReac Type Severity Reaction Status Date / Time ciprofloxacin [From CIPRO] Allergy Intermediate RASH Verified 09/03/21 08:27 Chocolate Allergy Sneezing Verified 09/03/21 08:27 milk Allergy Sneezing Verified 09/03/21 08:27 Plan I have reviewed the history and physical and performed a pertinent physical examination on my patient. No changes have occurred unless specified.
--- NOTE | 2021-09-24 12:51 | PC.NURSE ---
call to della Kaur on [facility] regarding imepenum iv q8h due at 11:00 a.m., not given - rn verbalizes understanding and will discuss with supervisor toy assembly regarding whether to bring it down to administer or adjust time with pharmacy.
--- NOTE | 2021-09-24 13:02 | P.CONAN_ITS ---
HPI - Anesthesia Eval Consult details Narrative: 76 yo male patient for EBUS PMFSH Active Problems Active Problems: All Active Problems (Updated 09/22/21 @ 11:52 by Shadi Reynoso MD) Lytic lesion of bone on x-ray (Acute) Lymphadenopathy, mediastinal (Acute) Lung mass (Acute) Abnormal chest CT (Acute) Urinary tract infection (Acute) Hypercalcemia (Acute) Dehydration (Acute) Generalized weakness (Acute) Status post revision of total replacement of right knee (Acute) Mechanical loosening of internal right knee prosthetic joint, subsequent encounter (Acute) Preoperative cardiovascular examination (Acute) Encounter for monitoring anti-arrhythmic therapy (Acute) Infected prosthetic knee joint (Acute) 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 with presence of antibiotic-impregnated cement spacer (Acute) Urinary retention with incomplete bladder emptying (Acute) Atherosclerotic cardiovascular disease (Acute) Past Medical History Medical History (Updated 09/24/21 @ 13:03 by Rachna Santos MD) Abnormal gait Arthritis Benign essential hypertension BPH (benign prostatic hyperplasia) Coronary arteriosclerosis in [place] artery Effusion, right knee Glaucoma Heart disease High cholesterol Lymphadenopathy, mediastinal Lytic lesion of bone on x-ray Myocardial infarct, old PAF (paroxysmal atrial fibrillation) Raynaud phenomenon RBBB (right bundle branch block) Family History Family History Father No problems noted. Mother No problems noted. Family history of problems with anesthesia: No Surgical History Surgical History History of bunionectomy of left great toe History of cardiac radiofrequency ablation History of cystoscopy History of left inguinal hernia repair History of meniscectomy of right knee History of prostate surgery History of right knee surgery History of total knee replacement History of total right knee replacement (TKR) History of Problems with Anesthesia: No Social History Social History Household Members: Spouse Housing: House Are you a primary point of care technician to a significant other at home: No Do you presently have visiting nurse or other home services: No Alcohol intake: never Patient Tobacco Use Status: Former Tobacco user Quit Date: 1991 Tobacco use type: Cigarette e-Cigarette/Vaping Use: Never Used Second Hand Smoke Exposure: No service: No Current occupational status: retired Current occupation: left handed Meds Allergies Allergy/AdvReac Type Severity Reaction Status Date / Time ciprofloxacin [From CIPRO] Allergy Intermediate RASH Verified 09/03/21 08:27 Chocolate Allergy Sneezing Verified 09/03/21 08:27 milk Allergy Sneezing Verified 09/03/21 08:27 Active Medications: Current Medications Acetaminophen (Acetaminophen 325 Mg Tablet) 650 mg PO Q6H PRN PRN Reason: Pain, Mild (Pain Scale 1-3) Benzonatate (Benzonatate 100 Mg Capsule) 100 mg PO TID PRN PRN Reason: Cough Brimonidine Tartrate (Brimonidine Tartrate 0.2% Oph 5 Ml Bottle) 1 drop EYE- BOTH BID [facility] Last Admin: 09/24/21 08:47 Dose: 1 drop Documented by: Dorzolamide/Timolol (Dorzolamide/Timolo 2.23%/0.68% 10 Ml Drbtl) 1 drop EYE- BOTH BID [facility] Last Admin: 09/24/21 08:47 Dose: 1 drop Documented by: Hydromorphone HCl (Hydromorphone Hcl 1 Mg/Ml Syringe) 0.5 mg IVPUSH Q4H PRN; Protocol PRN Reason: Breakthrough Pain Last Admin: 09/24/21 03:55 Dose: 0.5 mg Documented by: Sodium Chloride (Ns) 1,000 mls @ 75 mls/hr IVCONT .[id number] [facility] Last Admin: 09/24/21 06:28 Dose: 75 mls/hr Documented by: Meropenem 1 gm/ Sodium (Chloride) 100 mls @ 200 mls/hr IV Q8H [facility] Last Infusion: 09/24/21 03:59 Dose: Infused Documented by: Latanoprost (Latanoprost 0.005 % Ophth Loretta 2.5 Ml Drops) 1 drop EYE-BOTH BEDTIME [facility] Last Admin: 09/23/21 20:14 Dose: 1 drop Documented by: Melatonin (Melatonin 3 Mg Tablet) 6 mg PO BEDTIME PRN PRN Reason: Insomnia Metoprolol Succinate (Metoprolol Succinate Er 25 Mg Tab.Er.24h) 25 mg PO DAILY [facility]; Protocol Last Admin: 09/24/21 08:47 Dose: 25 mg Documented by: Oxycodone HCl (Oxycodone Hcl Immed Release 5 Mg Tablet) 5 mg PO BID PRN PRN Reason: Pain, Moderate Last Admin: 09/23/21 09:51 Dose: 5 mg Documented by: Pharmacy Consult (Consult Rx Perform Med Rec) 1 each MISCELLANE ONCE PRN PRN Reason: Consult order Pravastatin Sodium (Pravastatin Sodium 80 Mg Tablet) 80 mg PO BEDTIME [facility] Last Admin: 09/23/21 20:13 Dose: 80 mg Documented by: Senna (Sennosides 8.6 Mg Tablet) 17.2 mg PO BEDTIME PRN PRN Reason: Constipation Sodium Chloride (0.9 % Sodium Chloride Flush 3 Ml Syringe) 3 ml IVFLUSH QSHIFT [facility] Last Admin: 09/24/21 08:46 Dose: 3 ml Documented by: Tamsulosin HCl (Tamsulosin Hcl 0.4 Mg Capsule) 0.4 mg PO DAILY@1700 [facility] Last Admin: 09/23/21 16:09 Dose: 0.4 mg Documented by: Home Medications Medication Instructions Recorded Confirmed Last Taken Type brimonidine 0.2 % eye drops 1 drp OPHTHALMIC (EYE) BID ml 10/31/20 09/20/21 09/19/21 History dorzolamide 22.3 mg-timolol 6.8 1 drp OPHTHALMIC (EYE) BID ml 10/31/20 09/20/21 09/19/21 History mg/mL eye drops latanoprost 0.005 % eye drops 1 drp OPHTHALMIC (EYE) BEDTIME 10/31/20 09/20/21 09/19/21 History pravastatin 80 mg tablet 80 mg PO BEDTIME 10/31/20 09/20/21 09/19/21 History warfarin 2.5 mg tablet 2.5 mg PO DAILY@1700 10/31/20 09/20/21 09/19/21 History tamsulosin 0.4 mg capsule 1 cap PO DAILY 05/01/21 09/20/21 09/19/21 History oxycodone 5 mg tablet 1 tab PO BID PRN 09/20/21 09/20/21 09/19/21 History Exam Exam Date and Time: September 24, 2021 1302 Height,Weight and Vital Signs: Height 5 ft 7 in Weight 68.039 kg Last Vital Signs Temp 97.9 F 09/24/21 12:33 Pulse 65 09/24/21 12:33 Resp 18 09/24/21 12:33 BP 143/74 H 09/24/21 12:33 Pulse Ox 98 09/24/21 12:33 Pertinent Lab Results Pertinent Lab Results: Laboratory Tests 09/20/21 09/20/21 09/20/21 15:07 15:07 15:07 WBC 7.1 RBC 5.43 D Hgb 14.8 D Hct 45.8 D MCV 84.3 MCH 27.3 MCHC 32.3 RDW 14.7 Plt Count 215 D MPV 10.9 Immature Gran % (Auto) 0.6 H Neut % (Auto) 68.3 Lymph % (Auto) 16.5 L [place] % (Auto) 12.5 H Eos % (Auto) 1.4 Baso % (Auto) 0.7 Lymph # (Auto) 1.2 [place] # (Auto) 0.9 Eos # (Auto) 0.1 Baso # (Auto) 0.1 Abs Immat Gran (auto) 0.04 H Absolute Neuts (auto) 4.9 Absolute Nucleated RBC 0.000 Nucleated RBC % (auto) 0.0 PT INR Sodium 141 Potassium 4.5 Chloride 101 Carbon Dioxide 30 H Anion Gap 15 BUN 24 H Creatinine 1.24 Estim Creat Clear Calc 45.9 Estimated GFR 56 Random Glucose 94 Calcium 12.1 H D Phosphorus Magnesium 1.7 Total Bilirubin 0.5 AST 27 ALT 11 Alkaline Phosphatase 127 H Troponin I High Sens 10.4 Total Protein 7.5 Albumin 4.1 25-OH Vitamin D Total PTH Intact Calcium (PTH Intact) Urine Color Urine Appearance Urine pH Ur Specific [place] Urine Protein Urine Glucose (UA) Urine Ketones Urine Blood Urine Nitrite Ur Leukocyte Esterase Urine RBC Urine WBC Ur Squamous Epith Cells Urine Bacteria COVID-19 (RY) COVID-19 Clin Com Influenza Type A (LUZ) Influenza Type B (LUZ) Influenza A & B Note 09/20/21 09/20/21 09/20/21 15:07 15:08 15:08 WBC RBC Hgb Hct MCV MCH MCHC RDW Plt Count MPV Immature Gran % (Auto) Neut % (Auto) Lymph % (Auto) [place] % (Auto) Eos % (Auto) Baso % (Auto) Lymph # (Auto) [place] # (Auto) Eos # (Auto) Baso # (Auto) Abs Immat Gran (auto) Absolute Neuts (auto) Absolute Nucleated RBC Nucleated RBC % (auto) PT 36.1 H INR 3.1 H Sodium Potassium Chloride Carbon Dioxide Anion Gap BUN Creatinine Estim Creat Clear Calc Estimated GFR Random Glucose Calcium Phosphorus Magnesium Total Bilirubin AST ALT Alkaline Phosphatase Troponin I High Sens Total Protein Albumin 25-OH Vitamin D Total PTH Intact Calcium (PTH Intact) Urine Color Urine Appearance Urine pH Ur Specific [place] Urine Protein Urine Glucose (UA) Urine Ketones Urine Blood Urine Nitrite Ur Leukocyte Esterase Urine RBC Urine WBC Ur Squamous Epith Cells Urine Bacteria COVID-19 (RY) Negative COVID-19 Clin Com See Note Influenza Type A (LUZ) Negative Influenza Type B (LUZ) Negative Influenza A & B Note See Note 09/20/21 09/20/21 09/20/21 15:27 21:18 21:18 WBC RBC Hgb Hct MCV MCH MCHC RDW Plt Count MPV Immature Gran % (Auto) Neut % (Auto) Lymph % (Auto) [place] % (Auto) Eos % (Auto) Baso % (Auto) Lymph # (Auto) [place] # (Auto) Eos # (Auto) Baso # (Auto) Abs Immat Gran (auto) Absolute Neuts (auto) Absolute Nucleated RBC Nucleated RBC % (auto) PT INR Sodium Potassium Chloride Carbon Dioxide Anion Gap BUN Creatinine Estim Creat Clear Calc Estimated GFR Random Glucose Calcium Phosphorus Magnesium Total Bilirubin AST ALT Alkaline Phosphatase Troponin I High Sens Total Protein Albumin 25-OH Vitamin D Total 42.6 PTH Intact <6 L Calcium (PTH Intact) 11.0 H Urine Color YELLOW Urine Appearance CLOUDY Urine pH 6.0 Ur Specific [place] 1.020 Urine Protein NEG Urine Glucose (UA) NEG Urine Ketones NEG Urine Blood 2+ H Urine Nitrite POS H Ur Leukocyte Esterase 3+ H Urine RBC 30-49 H Urine WBC TNTC H Ur Squamous Epith Cells NONE Urine Bacteria 3+ COVID-19 (RY) COVID-19 Clin Com Influenza Type A (LUZ) Influenza Type B (LUZ) Influenza A & B Note 09/21/21 09/21/21 09/21/21 00:57 05:52 05:52 WBC 7.8 RBC 5.04 Hgb 13.6 L Hct 42.3 MCV 83.9 MCH 27.0 MCHC 32.2 RDW 14.6 Plt Count 202 MPV 11.6 Immature Gran % (Auto) 0.6 H Neut % (Auto) 71.3 Lymph % (Auto) 13.7 L [place] % (Auto) 12.6 H Eos % (Auto) 1.3 Baso % (Auto) 0.5 Lymph # (Auto) 1.1 L [place] # (Auto) 1.0 Eos # (Auto) 0.1 Baso # (Auto) 0.0 Abs Immat Gran (auto) 0.05 H Absolute Neuts (auto) 5.6 Absolute Nucleated RBC 0.000 Nucleated RBC % (auto) 0.0 PT INR Sodium 142 Potassium 3.9 Chloride 106 Carbon Dioxide 30 H Anion Gap 10 L BUN 21 H Creatinine 1.06 Estim Creat Clear Calc 53.6 Estimated GFR > 60 Random Glucose 110 Calcium 11.6 H 11.3 H Phosphorus Magnesium Total Bilirubin AST ALT Alkaline Phosphatase Troponin I High Sens Total Protein Albumin 25-OH Vitamin D Total PTH Intact Calcium (PTH Intact) Urine Color Urine Appearance Urine pH Ur Specific [place] Urine Protein Urine Glucose (UA) Urine Ketones Urine Blood Urine Nitrite Ur Leukocyte Esterase Urine RBC Urine WBC Ur Squamous Epith Cells Urine Bacteria COVID-19 (YR) COVID-19 Clin Com Influenza Type A (LUZ) Influenza Type B (LUZ) Influenza A & B Note 09/21/21 09/22/21 09/22/21 05:52 06:05 06:06 WBC 6.8 RBC 4.97 Hgb 13.6 L Hct 43.0 MCV 86.5 MCH 27.4 MCHC 31.6 RDW 14.8 Plt Count 199 MPV 11.5 Immature Gran % (Auto) Neut % (Auto) Lymph % (Auto) [place] % (Auto) Eos % (Auto) Baso % (Auto) Lymph # (Auto) [place] # (Auto) Eos # (Auto) Baso # (Auto) Abs Immat Gran (auto) Absolute Neuts (auto) Absolute Nucleated RBC 0.000 Nucleated RBC % (auto) 0.0 PT 40.1 H INR 3.4 H Sodium 143 Potassium 4.3 Chloride 103 Carbon Dioxide 29 Anion Gap 15 BUN 22 H Creatinine 1.07 Estim Creat Clear Calc 53.1 Estimated GFR > 60 Random Glucose 84 Calcium 12.0 H D Phosphorus Magnesium Total Bilirubin AST ALT Alkaline Phosphatase Troponin I High Sens Total Protein Albumin 25-OH Vitamin D Total PTH Intact Calcium (PTH Intact) Urine Color Urine Appearance Urine pH Ur Specific [place] Urine Protein Urine Glucose (UA) Urine Ketones Urine Blood Urine Nitrite Ur Leukocyte Esterase Urine RBC Urine WBC Ur Squamous Epith Cells Urine Bacteria COVID-19 (RY) COVID-19 Clin Com Influenza Type A (LUZ) Influenza Type B (LUZ) Influenza A & B Note 09/22/21 09/23/21 09/23/21 06:06 05:59 05:59 WBC RBC Hgb Hct MCV MCH MCHC RDW Plt Count MPV Immature Gran % (Auto) Neut % (Auto) Lymph % (Auto) [place] % (Auto) Eos % (Auto) Baso % (Auto) Lymph # (Auto) [place] # (Auto) Eos # (Auto) Baso # (Auto) Abs Immat Gran (auto) Absolute Neuts (auto) Absolute Nucleated RBC Nucleated RBC % (auto) PT 29.3 H 15.8 H INR 2.5 H 1.4 H Sodium 141 Potassium 3.9 Chloride 105 Carbon Dioxide 28 Anion Gap 12 BUN 23 H Creatinine 1.02 Estim Creat Clear Calc 55.8 Estimated GFR > 60 Random Glucose 99 Calcium 11.2 H D Phosphorus 3.0 Magnesium 1.6 Total Bilirubin AST ALT Alkaline Phosphatase Troponin I High Sens Total Protein Albumin 25-OH Vitamin D Total PTH Intact Calcium (PTH Intact) Urine Color Urine Appearance Urine pH Ur Specific [place] Urine Protein Urine Glucose (UA) Urine Ketones Urine Blood Urine Nitrite Ur Leukocyte Esterase Urine RBC Urine WBC Ur Squamous Epith Cells Urine Bacteria COVID-19 (RY) COVID-19 Clin Com Influenza Type A (LUZ) Influenza Type B (LUZ) Influenza A & B Note 09/24/21 09/24/21 06:15 06:15 WBC RBC Hgb Hct MCV MCH MCHC RDW Plt Count MPV Immature Gran % (Auto) Neut % (Auto) Lymph % (Auto) [place] % (Auto) Eos % (Auto) Baso % (Auto) Lymph # (Auto) [place] # (Auto) Eos # (Auto) Baso # (Auto) Abs Immat Gran (auto) Absolute Neuts (auto) Absolute Nucleated RBC Nucleated RBC % (auto) PT 14.3 H INR 1.3 H Sodium 142 Potassium 3.9 Chloride 105 Carbon Dioxide 28 Anion Gap 13 BUN 22 H Creatinine 1.00 Estim Creat Clear Calc 56.9 Estimated GFR > 60 Random Glucose 95 Calcium 10.6 H Phosphorus 3.0 Magnesium 1.6 Total Bilirubin AST ALT Alkaline Phosphatase Troponin I High Sens Total Protein Albumin 25-OH Vitamin D Total PTH Intact Calcium (PTH Intact) Urine Color Urine Appearance Urine pH Ur Specific [place] Urine Protein Urine Glucose (UA) Urine Ketones Urine Blood Urine Nitrite Ur Leukocyte Esterase Urine RBC Urine WBC Ur Squamous Epith Cells Urine Bacteria COVID-19 (RY) COVID-19 Clin Com Influenza Type A (LUZ) Influenza Type B (LUZ) Influenza A & B Note Airway Mallampati Class: II TM Dist: >3cm Neck ROM: Full Loose/Missing/Broken Teeth: Yes (Missing molars) Heart: RRR Lungs: Diminished BS Assessment and Plan Assessment Anesthesia Assessment: Anesthesia Plan Discussed and Chart Reviewed Final Anesthetic Review Family History of Problems with Anesthesia: No History of Problems with Anesthesia: No NPO: Yes ASA Class: III Final Preanesthetic Review: No Changes in Pt Med Stat, Meds/Allgs Chart Reviewed, Consent Obtained/Reviewed and Anes Risks/Benef Reviewed Patient Risk: Intermediate Procedure Risk: Low Assessment/Block/Sedation in SS: Assess/Block/Sedation-SS Anesthetic Plan Anesthetic Plan: GA Disposition: Standard PACU and Inp. Admit - Standard Bed
--- NOTE | 2021-09-24 13:53 | HO.PM.IMPN ---
Subjective Subjective Date of Service: 09/24/21 Interval History: Being followed for UTI and right lung mass with lytic lesion, patient NPO for bronchoscopy this morning offers no acute complaints of shortness of breath chest pain, no nausea no vomiting no other acute events overnight. Review of Systems Review of Systems: Yes all other systems are reviewed and are negative Physical Exam Vital Signs: Vital Signs: Last Vital Signs Temp 97.9 F 09/24/21 12:33 Pulse 65 09/24/21 12:33 Resp 18 09/24/21 12:33 BP 143/74 H 09/24/21 12:33 Pulse Ox 98 09/24/21 12:33 BMI result Body Mass Index 23.5 Const: Other: Gen: Resting in b ed, in no acute di stress HEENT: scle ra anicteric, mois t mucus membranes Neck: supple, no J VD Lungs: clear to auscultation bila terally, no wheeze Heart: regular ra te and rhythm, no murmurs Abd: soft, non-tender, non-d istended Ext: no e nkechi Skin: warm/we ll-perfused Neuro: alert and oriente d x3, no focal fin dings Psych: appro priate affect Objective Data Active Medications Acetaminophen (Acetaminophen 325 Mg Tablet) 650 mg PO Q6H PRN PRN Reason: Pain, Mild (Pain Scale 1-3) Benzonatate (Benzonatate 100 Mg Capsule) 100 mg PO TID PRN PRN Reason: Cough Brimonidine Tartrate (Brimonidine Tartrate 0.2% Oph 5 Ml Bottle) 1 drop EYE-BOTH BID [facility] Last Admin: 09/24/21 08:47 Dose: 1 drop Documented by: JERO Dorzolamide/Timolol (Dorzolamide/Timolo 2.23%/0.68% 10 Ml Drbtl) 1 drop EYE-BOTH BID [facility] Last Admin: 09/24/21 08:47 Dose: 1 drop Documented by: JERO Hydromorphone HCl (Hydromorphone Hcl 1 Mg/Ml Syringe) 0.5 mg IVPUSH Q4H PRN; Protocol PRN Reason: Breakthrough Pain Last Admin: 09/24/21 03:55 Dose: 0.5 mg Documented by: OSMAN Sodium Chloride (Ns) 1,000 mls @ 75 mls/hr IVCONT .[id number] [facility] Last Admin: 09/24/21 06:28 Dose: 75 mls/hr Documented by: OSMAN Meropenem 1 gm/ Sodium (Chloride) 100 mls @ 200 mls/hr IV Q8H [facility] Last Infusion: 09/24/21 03:59 Dose: 0 mls/hr Documented by: OSMAN Lactated Ringer's (Lr) 1,000 mls @ 100 mls/hr IVCONT .Q10H [facility] Latanoprost (Latanoprost 0.005 % Ophth Loretta 2.5 Ml Drops) 1 drop EYE-BOTH BEDTIME [facility] Last Admin: 09/23/21 20:14 Dose: 1 drop Documented by: OSMAN Melatonin (Melatonin 3 Mg Tablet) 6 mg PO BEDTIME PRN PRN Reason: Insomnia Metoprolol Succinate (Metoprolol Succinate Er 25 Mg Tab.Er.24h) 25 mg PO DAILY [facility]; Protocol Last Admin: 09/24/21 08:47 Dose: 25 mg Documented by: JERO Oxycodone HCl (Oxycodone Hcl Immed Release 5 Mg Tablet) 5 mg PO BID PRN PRN Reason: Pain, Moderate Last Admin: 09/23/21 09:51 Dose: 5 mg Documented by: JERO Pharmacy Consult (Consult Rx Perform Med Rec) 1 each MISCELLANE ONCE PRN PRN Reason: Consult order Pravastatin Sodium (Pravastatin Sodium 80 Mg Tablet) 80 mg PO BEDTIME [facility] Last Admin: 09/23/21 20:13 Dose: 80 mg Documented by: OSMAN Senna (Sennosides 8.6 Mg Tablet) 17.2 mg PO BEDTIME PRN PRN Reason: Constipation Sodium Chloride (0.9 % Sodium Chloride Flush 3 Ml Syringe) 3 ml IVFLUSH QSHIFT [facility] Last Admin: 09/24/21 08:46 Dose: 3 ml Documented by: JERO Tamsulosin HCl (Tamsulosin Hcl 0.4 Mg Capsule) 0.4 mg PO DAILY@1700 [facility] Last Admin: 09/23/21 16:09 Dose: 0.4 mg Documented by: JERO Labs CBC & Chem 7: 09/22/21 06:06 05/03/22 06:15 Labs: Laboratory Results - last 24 hr 09/24/21 09/24/21 06:15 06:15 PT 14.3 H INR 1.3 H Anion Gap 13 Estim Creat Clear Calc 56.9 Estimated GFR > 60 Random Glucose 95 Calcium 10.6 H Phosphorus 3.0 Magnesium 1.6 Assessment and Plan (1) Abnormal chest CT: Status: Acute (2) Hypercalcemia: Status: Acute Plan hospital d#4 76yo M with remote smoking hx, HTN, HLD, CAD, pAF on warfarin, BPH presented with multiple falls/weakness, found to have endobronchial SHANNON mass, extensive mediastinal/hilar adenopathy, lytic lesions of T-spine, ribs, and skull; small pericardial effusion; hypercalcemia # RUL mass - scheduled for bronchoscopy/biopsy/EBUS today, is NPO, denies shortness of breath, no chest pain, resume diet after procedure Continue pain medication for back pain. # hyperCa of malignancy - s/p 1 dose IV pamidronate, now on IV fluids calcium trending down to 10.6 - iPTH + PTHrP pending - monitor SCa, PO4 # pericardial effusion - likely malignant. Follow TTE, vitals stable # UTI, Pseudomonas aeurignosa - s/p ceftriaxone, on iv meropenem d#2 [rash with cipro- will avoid FQs], id recommend 10 days of meropenem # pAF - continue metoprolol succinate, warfarin on hold due to bronchoscopy would resume Coumadin after discussing with pulmonology # HLD - continue statin # CAD - continue statin + metoprolol # BPH - continue tamsulosin # falls - PT consulted, patient declined PT due to weakness PT will continue to follow and recommend discharge plan question HVNA vs STR # VTE ppx - warfarin on hold In my clinical judgment, the patient requires continued hospitalization for the following reasons: bronchoscopy/EBUS scheduled for today, IV ABX for Pseudomonas UTI Quality Stroke Does the patient have a stroke diagnosis?: No VTE Prior VTE?: No VTE Risk Level:: Medical - moderate - high VTE Device Contraindication: Treatment Not Indicated VTE Drug Contraindication: N/A - Med Ordered
[2021-09-24] MEDS: Tamsulosin HCL 0.4 MG CAPSULE PO (16:32)
[2021-09-24] MEDS: Lactated Ringers 1,000 ML 100 ML IVCONT (18:16)
[2021-09-24] MEDS: Latanoprost 0.005 % Ophth Sol 2.5 ML DROPS 1 DROP EYE-BOTH (20:45)
[2021-09-24] MEDS: Pravastatin Sodium 80 MG TABLET PO (20:45)
--- NOTE | 2021-09-24 22:22 | PM.OP ---
Brief Operative Note Date of Service: 09/24/21 Pre-op diagnosis: lymphadenopathy and lung mass Post-op diagnosis: other (RUL/MEGAN bronchus carcinoma with Lymphnode involvement) Procedure: EBUS with TBNA and bronchoscopy with biopsies Surgeon: Shadi Reynoso MD Anesthesia: GLMA Was an Heel Attacher Wood used for this Procedure?: No Estimated blood loss (mL): 3 Pathology: other (RUL biopsies, TBNA station 4R,7) Condition: stable Disposition: floor
[2021-09-24] MEDS: oxyCODONE HCl Immed Release 5 MG TABLET PO (23:41)
[2021-09-25 04:00] VITALS: BP 124/76; PULSE 67; RESP 20; TEMP 36.7; O2SAT 97
[2021-09-25] MEDS: Lactated Ringers 1,000 ML 100 ML IVCONT (05:15)
[2021-09-25] MEDS: oxyCODONE HCl Immed Release 5 MG TABLET PO ×2 (05:18→11:42)
[2021-09-25 07:22] LABS: INTERNATIONAL NORM RATIO 1.2 (0.9-1.1); Prothrombin Time 13.9 SEC (9.9-13.0)
[2021-09-25 08:00] VITALS: BP 148/79; PULSE 74; RESP 18; TEMP 36.7; O2SAT 98
[2021-09-25 09:31] LABS: PEU-Protein Creat Ratio Rand 0.841 (0.022-0.128); PEU-Rand. Prot/Creat Ratio 841 mg/g creat (22-128); PEU-Random Ur. Gamma Globulin 20 %; PEU-Random Urine A1 Globulin 3 %; PEU-Random Urine A2 Globulin 11 %; PEU-Random Urine Albumin 47 %; PEU-Random Urine Beta Globulin 19 %; PEU-Random Urine Creatinine 63 mg/dL (20-320); PEU-Random Urine Protein 53 mg/dL (5-25)
[2021-09-25] MEDS: Metoprolol Succinate ER 25 MG TAB.ER.24H PO (10:17)
[2021-09-25] MEDS: 0.9 % Sodium Chloride Flush 3 ML SYRINGE IVFLUSH ×3 (10:24→20:43)
[2021-09-25] MEDS: Dorzolamide/Timolo 2.23%/0.68% 10 ML DRBTL 1 DROP EYE-BOTH ×2 (10:24→20:43)
[2021-09-25] MEDS: Brimonidine Tartrate 0.2% Oph 5 ML BOTTLE 1 DROP EYE-BOTH ×2 (10:24→20:43)
[2021-09-25 12:00] VITALS: BP 115/66; PULSE 98; RESP 18; TEMP 36.6; O2SAT 97
--- NOTE | 2021-09-25 12:34 | MHC.CM.PN ---
Per ROUNDS discussion, Patient is not yet medically cleared for dc (IV Meropenem X 10 days,Pain, PT eval recommendation);Home vs STR is the goal and CM will continue to follow.
[2021-09-25 13:52] VITALS: O2SAT 97
[2021-09-25 15:18] VITALS: BP 113/57; PULSE 58; RESP 18; TEMP 36.7; O2SAT 96
--- NOTE | 2021-09-25 15:23 | HO.POSTANES ---
Post Anesthesia Evaluation Post Anesthesia Evaluation Vital Signs: Vital Signs Temp Pulse Resp BP Pulse Ox 09/25/21 15:18 98.0 F 58 18 113/57 L 96 09/25/21 13:52 97 09/25/21 12:00 97.8 F 98 18 115/66 97 09/25/21 08:00 98.0 F 74 18 148/79 H 98 09/25/21 04:00 98.0 F 67 20 124/76 97 Anesthesia: General Mental Status: Awake Pain Control: Satisfactory Nausea/Vomiting: None Hydration: Adequate Anesthesia-Related Issues: No Anes. Related Issues
[2021-09-25] MEDS: Tamsulosin HCL 0.4 MG CAPSULE PO (16:02)
[2021-09-25] MEDS: Warfarin Sodium 2.5 MG TABLET PO (17:12)
--- NOTE | 2021-09-25 17:23 | P.PNIM_ITS ---
Subjective Subjective Date of Service: 09/25/21 Interval History: Complaining of generalized pain, difficulty getting out of bed to chair and ambulation, denies urinary symptoms of dysuria or frequency, no acute overnight events denies fever chills, no nausea no vomiting tolerating diet, no confusion. Review of Systems Review of Systems: Yes all other systems are reviewed and are negative Physical Exam Vital Signs: Vital Signs: Last Vital Signs Temp 98.0 F 09/25/21 15:18 Pulse 58 09/25/21 15:18 Resp 18 09/25/21 15:18 BP 113/57 L 09/25/21 15:18 Pulse Ox 96 09/25/21 15:18 Oxygen Flow Rate 2 09/25/21 13:52 BMI result Body Mass Index 23.5 Const: Other: Gen: Awake alert, ill-appearing, no acute distress HE ENT: sclera anicte brad, moist mucus m embranes Neck: sup ple Lungs: clear t o auscultation jonathan aterally Heart: re gular rate and rhy thm, no murmurs Ab d: soft, non-tende r, non-distended E xt: no edema Skin: warm/well-perfuse d Neuro: alert and oriented x3, no f ocal findings Psyc h: appropriate aff ect Objective Data Active Medications Acetaminophen (Acetaminophen 325 Mg Tablet) 650 mg PO Q6H PRN PRN Reason: Pain, Mild (Pain Scale 1-3) Acetaminophen (Acetaminophen 325 Mg Tablet) 650 mg PO ONCE PRN PRN Reason: Pain, Mild (Pain Scale 1-3) Benzonatate (Benzonatate 100 Mg Capsule) 100 mg PO TID PRN PRN Reason: Cough Brimonidine Tartrate (Brimonidine Tartrate 0.2% Oph 5 Ml Bottle) 1 drop EYE- BOTH BID [facility] Last Admin: 09/25/21 10:24 Dose: 1 drop Documented by: ANGELIC Dorzolamide/Timolol (Dorzolamide/Timolo 2.23%/0.68% 10 Ml Drbtl) 1 drop EYE- BOTH BID [facility] Last Admin: 09/25/21 10:24 Dose: 1 drop Documented by: ANGELIC Fentanyl (Fentanyl Citrate/Pf 100 Mcg/2 Ml Vial) 25 mcg IVPUSH Q5M PRN; Protocol PRN Reason: Pain, Moderate (Pain Scale 4-6 Meropenem 1 gm/ Sodium (Chloride) 100 mls @ 200 mls/hr IV Q8H [facility] Last Admin: 09/25/21 16:04 Dose: 200 mls/hr Documented by: ANGELIC Latanoprost (Latanoprost 0.005 % Ophth Loretta 2.5 Ml Drops) 1 drop EYE-BOTH BEDTIME [facility] Last Admin: 09/24/21 20:45 Dose: 1 drop Documented by: SHAHIDA Melatonin (Melatonin 3 Mg Tablet) 6 mg PO BEDTIME PRN PRN Reason: Insomnia Metoprolol Succinate (Metoprolol Succinate Er 25 Mg Tab.Er.24h) 25 mg PO DAILY [facility]; Protocol Last Admin: 09/25/21 10:17 Dose: 25 mg Documented by: ANGELIC Ondansetron HCl (Ondansetron Hcl 4 Mg/2 Ml Vial) 4 mg IVPUSH ONCE PRN PRN Reason: Nausea and Vomiting Oxycodone HCl (Oxycodone Hcl Er 10 Mg Tab.Er.12h) 10 mg PO BID [facility] Oxycodone HCl (Oxycodone Hcl Immed Release 5 Mg Tablet) 5 mg PO Q6H PRN PRN Reason: Pain, Moderate Pharmacy Consult (Consult Rx Perform Med Rec) 1 each MISCELLANE ONCE PRN PRN Reason: Consult order Pravastatin Sodium (Pravastatin Sodium 80 Mg Tablet) 80 mg PO BEDTIME [facility] Last Admin: 09/24/21 20:45 Dose: 80 mg Documented by: SHAHIDA Senna (Sennosides 8.6 Mg Tablet) 17.2 mg PO BEDTIME PRN PRN Reason: Constipation Sodium Chloride (0.9 % Sodium Chloride Flush 3 Ml Syringe) 3 ml IVFLUSH QSHIFT [facility] Last Admin: 09/25/21 16:03 Dose: 3 ml Documented by: ANGELIC Tamsulosin HCl (Tamsulosin Hcl 0.4 Mg Capsule) 0.4 mg PO DAILY@1700 [facility] Last Admin: 09/25/21 16:02 Dose: 0.4 mg Documented by: ANGELIC Warfarin Sodium (Warfarin Sodium 2.5 Mg Tablet) 2.5 mg PO DAILY@1800 [facility] Last Admin: 09/25/21 17:12 Dose: 2.5 mg Documented by: ANGELIC Labs CBC & Chem 7: 09/22/21 06:06 09/24/21 06:15 Labs: Laboratory Results - last 24 hr 09/21/21 09/25/21 11:37 06:47 PT 13.9 H INR 1.2 H U [place] Prot/Creat Ratio 0.841 H Ur Creatinine mg/dL 63 U Total Protein mg/dL 53 H Protein/Creatinin Ratio 841 H Urine Albumin (%) 47 U Oyeps-7-Hkqysptw (%) 3 U Rfnvn-5-Edodhhkm (%) 11 U Beta Globulin (%) 19 U Gamma Globulin (%) 20 Urine PEP Interpret SEE NOTE Microbiology Microbiology Results: Microbiology 09/24/21 15:01 Gram Stain - Final Bronchial Washings Routine Culture - Preliminary No growth to date. 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 and continue as needed oxycodone Obtain PT eval due to difficulty in ambulation # hyperCa of malignancy - s/p 1 dose IV pamidronate,calcium trending down to 10.6 - iPTH + PTHrP pending - monitor SCa, PO4 # pericardial effusion - likely malignant. Echocardiogram showed no definite findings of tamponade, small to moderate pericardial effusion more prominent along the anterolateral wall vitals stable. # UTI, Pseudomonas aeurignosa - s/p ceftriaxone, on iv meropenem d#/ [rash with cipro- will avoid FQs], id recommend 10 days of meropenem , will place on midline prior to discharge # pAF - continue metoprolol succinate, continue warfarin follow INR # HLD - continue statin # CAD - no chest pain, continue statin + metoprolol # BPH - continue tamsulosin # falls - PT consulted, patient declined PT due to weakness PT will continue to follow and recommend discharge plan question [facility] vs STR # VTE ppx - warfarin In my clinical judgment, the patient requires continued hospitalization for the following reasons: IV ABX for Pseudomonas UTI, intractable pain requiring IV pain medication and generalized weakness Quality Stroke Does the patient have a stroke diagnosis?: No VTE Prior VTE?: No VTE Risk Level:: Medical - moderate - high VTE Device Contraindication: Treatment Not Indicated VTE Drug Contraindication: N/A - Med Ordered
[2021-09-25 19:42] VITALS: BP 155/75; PULSE 65; RESP 18; TEMP 37.1; O2SAT 98
[2021-09-25] MEDS: oxyCODONE HCl ER 10 MG TAB.ER.12H PO (20:41)
[2021-09-25] MEDS: Pravastatin Sodium 80 MG TABLET PO (20:41)
[2021-09-25] MEDS: Latanoprost 0.005 % Ophth Sol 2.5 ML DROPS 1 DROP EYE-BOTH (20:43)
[2021-09-26] VITALS (8 sets, daily range): BP systolic 94–149; BP diastolic 56–69; PULSE 50–66; RESP 17–25; TEMP 36.1–36.6; O2SAT 92–99
[2021-09-26 07:20] LABS: INTERNATIONAL NORM RATIO 1.2 (0.9-1.1); Prothrombin Time 13.1 SEC (9.9-13.0)
[2021-09-26] MEDS: Brimonidine Tartrate 0.2% Oph 5 ML BOTTLE 1 DROP EYE-BOTH ×2 (08:15→20:03)
[2021-09-26] MEDS: 0.9 % Sodium Chloride Flush 3 ML SYRINGE IVFLUSH ×2 (08:15→16:11)
[2021-09-26] MEDS: Dorzolamide/Timolo 2.23%/0.68% 10 ML DRBTL 1 DROP EYE-BOTH ×2 (08:16→20:03)
[2021-09-26] MEDS: Metoprolol Succinate ER 25 MG TAB.ER.24H PO (08:17)
[2021-09-26] MEDS: Sennosides 8.6 MG TABLET 17.2 MG PO (08:18)
[2021-09-26] MEDS: oxyCODONE HCl ER 10 MG TAB.ER.12H PO (08:18)
[2021-09-26] MEDS: oxyCODONE HCl Immed Release 5 MG TABLET PO ×2 (08:45→14:49)
[2021-09-26] MEDS: Acetaminophen 325 MG TABLET 650 MG PO ×2 (08:45→19:57)
--- NOTE | 2021-09-26 11:24 | MHC.CM.PN ---
Per ROUNDS discussion, PT is now recommending STR. New SNF referrals made and CM will follow.
[2021-09-26] MEDS: Docusate Sodium 100 MG CAPSULE 200 MG PO (12:03)
[2021-09-26] MEDS: Lactulose 20 GM/30 ML SOLUTION PO (12:03)
--- NOTE | 2021-09-26 13:55 | P.PNIM_ITS ---
Subjective Subjective Date of Service: 09/26/21 Interval History: Patient complaining of generalized pain more over ribs and back, having difficulty getting out of bed to chair, any movement causes severe pain, started on Oxy Contin yesterday with no significant improvement, denies nausea vomiting, has had no bowel movement in last several days, PT saw patient and recommending short-term rehab due to decreased functional mobility to optimize safety and function Review of Systems [employer] no headache, no dizziness General no fevers, generalized weakness and generalized pain Respiratory shortness of breath, occasional cough Review of Systems: Yes all other systems are reviewed and are negative Physical Exam Vital Signs: Vital Signs: Last Vital Signs Temp 97.5 F 09/26/21 12:00 Pulse 54 09/26/21 12:00 Resp 20 09/26/21 12:00 BP 94/56 L 09/26/21 12:00 Pulse Ox 97 09/26/21 12:00 Oxygen Flow Rate 2 09/25/21 13:52 BMI result Body Mass Index 23.5 Const: Other: Gen:? Awake alert,?ill-appearing, no?acute distress , restricted movement, moans with activity HEENT: sclera anicteric, moist mucus membranes Neck: supple Lungs: clear to auscultation bilaterally Heart: regular rate and rhythm, no murmurs Abd: soft, non-tender, non-distended, bowel sounds audible Ext: no edema Skin:?warm/well-perfused Neuro: alert and?oriented x3, no focal findings Psych: appropriate affect Objective Data Active Medications Acetaminophen (Acetaminophen 325 Mg Tablet) 650 mg PO Q6H PRN PRN Reason: Pain, Mild (Pain Scale 1-3) Last Admin: 09/26/21 08:45 Dose: 650 mg Documented by: LEYLA Acetaminophen (Acetaminophen 325 Mg Tablet) 650 mg PO ONCE PRN PRN Reason: Pain, Mild (Pain Scale 1-3) Benzonatate (Benzonatate 100 Mg Capsule) 100 mg PO TID PRN PRN Reason: Cough Brimonidine Tartrate (Brimonidine Tartrate 0.2% Oph 5 Ml Bottle) 1 drop EYE- BOTH BID [facility] Last Admin: 09/26/21 08:15 Dose: 1 drop Documented by: LEYLA Docusate Sodium (Docusate Sodium 100 Mg Capsule) 200 mg PO DAILY [facility] Last Admin: 09/26/21 12:03 Dose: 200 mg Documented by: LEYLA Dorzolamide/Timolol (Dorzolamide/Timolo 2.23%/0.68% 10 Ml Drbtl) 1 drop EYE- BOTH BID [facility] Last Admin: 09/26/21 08:16 Dose: 1 drop Documented by: LEYLA Fentanyl (Fentanyl Citrate/Pf 100 Mcg/2 Ml Vial) 25 mcg IVPUSH Q5M PRN; Protocol PRN Reason: Pain, Moderate (Pain Scale 4-6 Meropenem 1 gm/ Sodium (Chloride) 100 mls @ 200 mls/hr IV Q8H [facility] Last Infusion: 09/26/21 10:20 Dose: 0 mls/hr Documented by: LEYLA Latanoprost (Latanoprost 0.005 % Ophth Loretta 2.5 Ml Drops) 1 drop EYE-BOTH BEDTIME [facility] Last Admin: 09/25/21 20:43 Dose: 1 drop Documented by: ODRISM Melatonin (Melatonin 3 Mg Tablet) 6 mg PO BEDTIME PRN PRN Reason: Insomnia Metoprolol Succinate (Metoprolol Succinate Er 25 Mg Tab.Er.24h) 25 mg PO DAILY [facility]; Protocol Last Admin: 09/26/21 08:17 Dose: 25 mg Documented by: LEYLA Morphine Sulfate (Morphine Sulfate 4 Mg/Ml Cartridge) 3 mg IVPUSH Q6H PRN; Protocol PRN Reason: Pain, Severe (Pain Scale 7-10) Ondansetron HCl (Ondansetron Hcl 4 Mg/2 Ml Vial) 4 mg IVPUSH ONCE PRN PRN Reason: Nausea and Vomiting Oxycodone HCl (Oxycodone Hcl Er 10 Mg Tab.Er.12h) 10 mg PO BID [facility] Last Admin: 09/26/21 08:18 Dose: 10 mg Documented by: LEYLA Oxycodone HCl (Oxycodone Hcl Immed Release 5 Mg Tablet) 5 mg PO Q6H PRN PRN Reason: Pain, Moderate Last Admin: 09/26/21 08:45 Dose: 5 mg Documented by: LEYLA Pharmacy Consult (Consult Rx Perform Med Rec) 1 each MISCELLANE ONCE PRN PRN Reason: Consult order Polyethylene Glycol (Polyethylene Glycol 3350 17 Gm Powd.Pack) 17 gm PO DAILY [facility] Pravastatin Sodium (Pravastatin Sodium 80 Mg Tablet) 80 mg PO BEDTIME [facility] Last Admin: 09/25/21 20:41 Dose: 80 mg Documented by: IAIN Senna (Sennosides 8.6 Mg Tablet) 17.2 mg PO BEDTIME PRN PRN Reason: Constipation Last Admin: 09/26/21 08:18 Dose: 17.2 mg Documented by: LEYLA Sodium Chloride (0.9 % Sodium Chloride Flush 3 Ml Syringe) 3 ml IVFLUSH QSHIFT [facility] Last Admin: 09/26/21 08:15 Dose: 3 ml Documented by: LEYLA Tamsulosin HCl (Tamsulosin Hcl 0.4 Mg Capsule) 0.4 mg PO DAILY@1700 [facility] Last Admin: 09/25/21 16:02 Dose: 0.4 mg Documented by: ANGELIC Warfarin Sodium (Warfarin Sodium 2.5 Mg Tablet) 2.5 mg PO DAILY@1800 [facility] Last Admin: 09/25/21 17:12 Dose: 2.5 mg Documented by: ANGELIC Labs CBC & Chem 7: 09/22/21 06:06 09/24/21 06:15 Labs: Laboratory Results - last 24 hr 09/26/21 06:22 PT 13.1 H INR 1.2 H Microbiology Microbiology Results: Microbiology 09/24/21 15:01 Gram Stain - Final Bronchial Washings Routine Culture - Final No growth after 2 days Assessment and Plan (1) Abnormal chest CT: Status: Acute (2) Hypercalcemia: Status: Acute Plan 76yo M with remote smoking hx, HTN, HLD, CAD, pAF on warfarin, BPH presented with multiple falls/weakness, found to have endobronchial SHANNON mass, extensive mediastinal/hilar adenopathy, lytic lesions of T-spine, ribs, and skull; small pericardial effusion; hypercalcemia # RUL mass with lytic bone disease and mediastinal adenopathy Generalized pain, shortness of breath with activity status post bronchoscopy/EBUS with biopsy noted to have right upper lobe, 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 Lau for initial consultation. # intractable generalized pain Due to thoracic spine lytic lesions,will need PET scan as outpatient on OxyContin 10 mg b.i.d. and as needed oxycodone , will schedule Tylenol and will increase dose of OxyContin to 20mg bid Seen by PT they recommend short-term rehab # hyperCa of malignancy - s/p 1 dose IV pamidronate,calcium trending down to 10.6 PTH intact less than 6, Ca (pth) 11, + PTHrP pending - monitor SCa, PO4 # pericardial effusion - likely malignant. Echocardiogram showed no definite findings of tamponade, small to moderate pericardial effusion more prominent along the anterolateral wall vitals stable. # UTI, Pseudomonas aeurignosa - s/p ceftriaxone, on iv meropenem d#10/01, started on September 2205/2021 [rash with cipro- will avoid FQs], id recommend 10 days of meropenem , will place on midline prior to discharge # pAF - continue metoprolol succinate, continue warfarin follow INR # HLD - continue statin # CAD - no chest pain, continue statin + metoprolol # BPH - continue tamsulosin # falls - PT consulted, they recommend short-term rehab # VTE ppx - warfarin In my clinical judgment, the patient requires continued hospitalization for the following reasons: IV ABX for Pseudomonas UTI, intractable pain requiring IV pain medication and generalized weakness. Quality Stroke Does the patient have a stroke diagnosis?: No VTE Prior VTE?: No VTE Risk Level:: Medical - moderate - high VTE Device Contraindication: Treatment Not Indicated VTE Drug Contraindication: N/A - Med Ordered
[2021-09-26] MEDS: Tamsulosin HCL 0.4 MG CAPSULE PO (17:20)
[2021-09-26] MEDS: Warfarin Sodium 5 MG TABLET PO (17:20)
[2021-09-26] MEDS: oxyCODONE HCl ER 10 MG TAB.ER.12H 20 MG PO (19:55)
[2021-09-26] MEDS: Pravastatin Sodium 80 MG TABLET PO (19:56)
[2021-09-26] MEDS: Latanoprost 0.005 % Ophth Sol 2.5 ML DROPS 1 DROP EYE-BOTH (20:03)
--- NOTE | 2021-09-26 20:16 | OP_ITS ---
SURGEON: Shadi Reynoso MD PREOPERATIVE DIAGNOSIS: Lung mass and lymphadenopathy. POSTOPERATIVE DIAGNOSIS: Lung cancer in the right mainstem bronchus and right upper lobe and lymphadenopathy, likely metastatic disease. PROCEDURE PERFORMED: ESTIMATED BLOOD LOSS: COMPLICATIONS: ANESTHESIA: LMA. ASSISTANTS: SPECIMENS: DESCRIPTION OF PROCEDURE: After the patient is adequately sedated, the flexible digital bronchoscope with endobronchial ultrasound bronchoscopy, EBUS, was introduced into the LMA to the level of the larynx. The vocal cords moved symmetrically to the midline. The patient did have some exudative type of secretions on the larynx. After instituting the lidocaine, the bronchoscope was then navigated to the level of the trachea using ultrasounds. The lymph node stations were evaluated. Difficult to see the 4L station due to the proximity to the mucosa, could not make good eye contact. However, the patient did have significantly large right paratracheal and also had, which was measuring about 3 cm in size and also the main braulio was significantly elevated. Using ultrasound guidance, the transbronchial needle aspirations were collected at station 4R. That lymph node was very hard, and there appears to be some abnormal cells but waiting final results. The patient did also have some lymphocyte consistent with lymph node specimen. Afterwards, station 7 was intervened on. Multiple transbronchial needle aspirations were collected. Patient tolerated the sampling well. We will be sending the results to both the cytology and also for flow cytometry. The bronchoscope with EBUS was then removed and replaced with the regular bronchoscopy. The tracheobronchial tree was examined to the subsegmental level. The patient did have evidence of chronic airway disease, but in the right mainstem bronchus. There appears to be some irregularity of the mucosa, and in the right upper lobe, there appears to be a fungating like masslike density. Therefore using forceps, multiple endobronchial biopsies were collected from the right upper lobe, sent to Pathology for further analysis. Iced saline was used with good hemostasis. The patient tolerated biopsies well and the bronchoscope was then removed. The total endoscopic time approximately 1 hour. The patient tolerated the procedure well. Vital signs were stable. INTERPRETATION: 1. EBUS bronchoscopy with ultrasound-guided transbronchial needle aspirations, station 4R and station 7. 2. Bilateral lung washings. 3. Endobronchial biopsies using forceps in the right upper lobe masslike density. No apparent complications. Shadi Reynoso MD MR/MODL / [id number]
[2021-09-27] MEDS: 0.9 % Sodium Chloride Flush 3 ML SYRINGE IVFLUSH ×2 (02:17→08:44)
[2021-09-27 03:27] VITALS: BP 145/69; PULSE 55; RESP 18; TEMP 36.4; O2SAT 98
[2021-09-27 07:39] VITALS: BP 142/65; PULSE 60; RESP 14; TEMP 36.1; O2SAT 92
[2021-09-27 08:45] LABS: INTERNATIONAL NORM RATIO 1.3 (0.9-1.1); Prothrombin Time 14.4 SEC (9.9-13.0)
[2021-09-27] MEDS: polyethylene glycoL 3350 17 GM POWD.PACK PO (08:45)
[2021-09-27] MEDS: Docusate Sodium 100 MG CAPSULE 200 MG PO (08:46)
[2021-09-27] MEDS: Acetaminophen 325 MG TABLET 650 MG PO (08:46)
[2021-09-27] MEDS: oxyCODONE HCl ER 10 MG TAB.ER.12H 20 MG PO (08:46)
[2021-09-27] MEDS: Metoprolol Succinate ER 25 MG TAB.ER.24H PO (08:47)
[2021-09-27] MEDS: Brimonidine Tartrate 0.2% Oph 5 ML BOTTLE 1 DROP EYE-BOTH (08:50)
[2021-09-27] MEDS: Dorzolamide/Timolo 2.23%/0.68% 10 ML DRBTL 1 DROP EYE-BOTH (08:50)
[2021-09-27 11:07] VITALS: BP 142/65; PULSE 60; O2SAT 92
--- NOTE | 2021-09-27 11:28 | MHC.CM.PN ---
met with pt and siblings all agreeable to rmoc dr orona made aware ,message left for dgter to contact t/w pts brother sisi will contact belinda as well long [phone] ,brother in pts room when meeting with pt
[2021-09-27 11:55] VITALS: BP 129/69; PULSE 57; RESP 20; TEMP 36.3; O2SAT 98
--- NOTE | 2021-09-27 12:51 | HO.PM.IMPN ---
Subjective Subjective Date of Service: 09/27/21 Interval History: Less pain this morning able to get out of bed with assistance ,complaining of left-sided neck pain feels slept on that side, denies nausea vomiting tolerating diet no acute issues overnight. Review of Systems Review of Systems: Yes all other systems are reviewed and are negative Physical Exam Vital Signs: Vital Signs: Last Vital Signs Temp 97.4 F 09/27/21 11:55 Pulse 57 09/27/21 11:55 Resp 20 09/27/21 11:55 BP 129/69 09/27/21 11:55 Pulse Ox 98 09/27/21 11:55 Oxygen Flow Rate 2 09/26/21 13:00 BMI result Body Mass Index 23.5 Const: Other: Gen:? Awake alert,no?acute distress , restricted movement, feels comfortable today HEENT: sclera anicteric, moist mucus membranes Neck: Mild tenderness left paravertebral muscles Lungs: clear to auscultation bilaterally Heart: regular rate and rhythm, no murmurs Abd: soft, non-tender, non-distended, bowel sounds audible Ext: no edema Skin:?warm/well-perfused Neuro: alert and?oriented x3, no focal findings Psych: appropriate affect Objective Data Active Medications Acetaminophen (Acetaminophen 325 Mg Tablet) 650 mg PO ONCE PRN PRN Reason: Pain, Mild (Pain Scale 1-3) Acetaminophen (Acetaminophen 325 Mg Tablet) 650 mg PO BID [facility] Last Admin: 09/27/21 08:46 Dose: 650 mg Documented by: ALEXANDRA Benzonatate (Benzonatate 100 Mg Capsule) 100 mg PO TID PRN PRN Reason: Cough Brimonidine Tartrate (Brimonidine Tartrate 0.2% Oph 5 Ml Bottle) 1 drop EYE-BOTH BID [facility] Last Admin: 09/27/21 08:50 Dose: 1 drop Documented by: ALEXANDRA Docusate Sodium (Docusate Sodium 100 Mg Capsule) 200 mg PO DAILY [facility] Last Admin: 09/27/21 08:46 Dose: 200 mg Documented by: ALEXANDRA Dorzolamide/Timolol (Dorzolamide/Timolo 2.23%/0.68% 10 Ml Drbtl) 1 drop EYE-BOTH BID [facility] Last Admin: 09/27/21 08:50 Dose: 1 drop Documented by: ALEXANDRA Fentanyl (Fentanyl Citrate/Pf 100 Mcg/2 Ml Vial) 25 mcg IVPUSH Q5M PRN; Protocol PRN Reason: Pain, Moderate (Pain Scale 4-6 Meropenem 1 gm/ Sodium (Chloride) 100 mls @ 200 mls/hr IV Q8H [facility] Last Infusion: 09/27/21 09:18 Dose: 0 mls/hr Documented by: ALEXANDRA Latanoprost (Latanoprost 0.005 % Ophth Loretta 2.5 Ml Drops) 1 drop EYE-BOTH BEDTIME [facility] Last Admin: 09/26/21 20:03 Dose: 1 drop Documented by: YANET Melatonin (Melatonin 3 Mg Tablet) 6 mg PO BEDTIME PRN PRN Reason: Insomnia Metoprolol Succinate (Metoprolol Succinate Er 25 Mg Tab.Er.24h) 25 mg PO DAILY [facility]; Protocol Last Admin: 09/27/21 08:47 Dose: 25 mg Documented by: ALEXANDRA Morphine Sulfate (Morphine Sulfate 4 Mg/Ml Cartridge) 3 mg IVPUSH Q6H PRN; Protocol PRN Reason: Pain, Severe (Pain Scale 7-10) Ondansetron HCl (Ondansetron Hcl 4 Mg/2 Ml Vial) 4 mg IVPUSH ONCE PRN PRN Reason: Nausea and Vomiting Oxycodone HCl (Oxycodone Hcl Immed Release 5 Mg Tablet) 5 mg PO Q6H PRN PRN Reason: Pain, Moderate Last Admin: 09/26/21 14:49 Dose: 5 mg Documented by: LEYLA Oxycodone HCl (Oxycodone Hcl Er 10 Mg Tab.Er.12h) 20 mg PO BID [facility] Last Admin: 09/27/21 08:46 Dose: 20 mg Documented by: ALEXANDRA Pharmacy Consult (Consult Rx Perform Med Rec) 1 each MISCELLANE ONCE PRN PRN Reason: Consult order Polyethylene Glycol (Polyethylene Glycol 3350 17 Gm Powd.Pack) 17 gm PO DAILY [facility] Last Admin: 09/27/21 08:45 Dose: 17 gm Documented by: ALEXANDRA Pravastatin Sodium (Pravastatin Sodium 80 Mg Tablet) 80 mg PO BEDTIME [facility] Last Admin: 09/26/21 19:56 Dose: 80 mg Documented by: YANET Senna (Sennosides 8.6 Mg Tablet) 17.2 mg PO BEDTIME PRN PRN Reason: Constipation Last Admin: 09/26/21 08:18 Dose: 17.2 mg Documented by: LEYLA Sodium Chloride (0.9 % Sodium Chloride Flush 3 Ml Syringe) 3 ml IVFLUSH QSHIFT [facility] Last Admin: 09/27/21 08:44 Dose: 3 ml Documented by: ALEXANDRA Tamsulosin HCl (Tamsulosin Hcl 0.4 Mg Capsule) 0.4 mg PO DAILY@1700 [facility] Last Admin: 09/26/21 17:20 Dose: 0.4 mg Documented by: RYAN Warfarin Sodium (Warfarin Sodium 5 Mg Tablet) 5 mg PO DAILY@1800 [facility] Last Admin: 09/26/21 17:20 Dose: 5 mg Documented by: RYAN Labs CBC & Chem 7: 09/22/21 06:06 09/24/21 06:15 Labs: Laboratory Results - last 24 hr 09/27/21 08:20 PT 14.4 H INR 1.3 H Microbiology Microbiology Results: Microbiology 09/24/21 15:01 Gram Stain - Final Bronchial Washings Routine Culture - Final No growth after 2 days Assessment and Plan (1) Abnormal chest CT: Status: Acute (2) Hypercalcemia: Status: Acute Plan 76yo M with remote smoking hx, HTN, HLD, CAD, pAF on warfarin, BPH presented with multiple falls/weakness, found to have endobronchial SHANNON mass, extensive mediastinal/hilar adenopathy, lytic lesions of T-spine, ribs, and skull; small pericardial effusion; hypercalcemia # RUL mass with lytic bone disease and mediastinal adenopathy Better pain control this morning, less shortness of breath status post? 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 pathology pending, case discussed with Dr. Lau he recommend outpatient follow-up next week with Dr. Serrano called Dr. Serrano and notified her to make arrangements for follow up appointment spoke with patient's daughter and updated her about concern for metastatic lung cancer # intractable generalized pain Due to thoracic spine lytic lesions, rib fractures need PET scan as outpatient on OxyContin 20 mg b.i.d. and as needed oxycodone with better pain control, Seen by PT they recommend short-term rehab # hyperCa of malignancy - s/p 1 dose IV pamidronate,calcium trending down to 10.6 PTH intact less than 6, Ca (pth) 11, + PTHrP pending - monitor SCa, PO4 # pericardial effusion - likely malignant. Echocardiogram showed no definite findings of tamponade, small to moderate pericardial effusion more prominent along the anterolateral wall vitals stable. # UTI, Pseudomonas aeurignosa - s/p ceftriaxone, on iv meropenem d#11/01, started on September 2205/2021 [rash with cipro- will avoid FQs], id recommend 10 days of meropenem , will place on midline prior to discharge to rehab will check with rehab if they can use peripheral line for IV antibiotics end date 10/01/21. # pAF - continue metoprolol succinate, continue warfarin subtherapeutic INR since Coumadin was held for procedure # HLD - continue statin # CAD - no chest pain, continue statin + metoprolol # BPH - continue tamsulosin # falls - PT consulted, they recommend short-term rehab # VTE ppx - warfarin In my clinical judgment, the patient requires continued hospitalization for the following reasons: IV ABX for Pseudomonas UTI, intractable pain and generalized weakness, require safe discharge to rehab, social media intern looking for bed Quality Stroke Does the patient have a stroke diagnosis?: No VTE Prior VTE?: No VTE Risk Level:: Medical - moderate - high VTE Device Contraindication: Treatment Not Indicated VTE Drug Contraindication: N/A - Med Ordered
--- NOTE | 2021-09-27 13:02 | PM.DS ---
DS: Providers Provider Date of Service: 09/27/21 Date of admission: 09/20/21 20:57 Primary care physician: Glenny Henderson PA-C Consults: 09/20/21 20:57 Consult to Hematology / Oncology Routine Consulting Provider: Siobhan Serrano Reason for consultation: lung mass; lymphadenopathy 09/21/21 08:12 Consult to Pulmonology Routine Consulting Provider[place] [facility] [place] [facility] Reason for consultation: lung mass, metastatic... endobronchial... biopsy 09/22/21 10:58 Consult to Infectious Diseases Routine Consulting Provider: Bhumika Palacios Reason for consultation: pseudomonas UTI DS: Diagnosis Discharge Diagnosis (1) Abnormal chest CT: Status: Acute (2) Hypercalcemia: Status: Acute DS: Summary Hospital Course Hospital Course: Chief Complaint: Gen Weakness/ fall 76-year-old male with a past medical history of hypertension, hyperlipidemia, CAD, paroxysmal AFib on Coumadin, BPH, arthritis, Raynaud phenomena, history of total knee replacement; presented to the hospital today with a chief complaint? chest pain/fall. Pt is a poor historian. ? Patient reported that he fell near the car about a month ago, tripped and fell on his left side, hit his chest to car, denies any head strike or loss of consciousness.? Followed by he developed chest pain on the left lateral chest wall; over the past few days he has been having generalized weakness, increased chest pain; denies any abdominal pain, nausea vomiting diarrhea, urinary frequency urgency or dysuria.? Denies any numbness tingling or focal weakness.? Reports that he had bilateral knee surgery; has been lying in the bed since he came into the ER-hence he is not able to move his lower extremities but prolonged immobilization for patient.? Also attributes to his bilateral knee arthritis. Review of all other systems is negative except mentioned above ER course: Per ER team patient reported unsteady gait; exam was grossly nonfocal; lab showed INR of 3.1; urinalysis abnormal consistent UTI-given ceftriaxone; CT chest showed lobulated density measuring 2.3 cm may represent endobronchial lesion versus mucous plugging also noted extensive lymphadenopathy concerning for neoplasm; new lytic lesions on the thoracic spine noted; also concern for old healed fractures of the ribs secondary to lytic bone lesions persist metastatic disease.? Small pericardial effusion. Notified Dr. Serrano from Oncology. admitted for further management. Hospital course 76yo M with remote smoking hx, HTN, HLD, CAD, pAF on warfarin, BPH presented with multiple falls/weakness, found to have endobronchial SHANNON mass, extensive mediastinal/hilar adenopathy, lytic lesions of T-spine, ribs, and skull; small pericardial effusion; hypercalcemia # RUL mass with lytic bone disease and mediastinal adenopathy, patient underwent bronchoscopy/EBUS with biopsy noted to have right upper lobe and right middle lobe bronchus carcinoma with lymph node involvement biopsy Report is pending, likely patient has metastatic lung disease, patient needs to be followed next week with Dr. Serrano at her office for treatment plan once biopsy report is available, call Dr. Serrano and notified her. In regard to intractable generalized pain due to thoracic spine lytic lesions and refer fractures patient has been placed on OxyContin 20 mg b.i.d. and as needed oxycodone with better pain control Patient also noted to have pericardial effusion and echocardiogram showed no definite findings of tamponade there was small to moderate pericardial effusion noted more prominent along the anterolateral wall likely malignant effusion # HyperCa of malignancy patient noted to have elevated calcium level therefore treated with 1 dose of IV pamidronate and IV fluid PTH intact is less than 6, PTHrP pending, recommend to repeat calcium and phosphorous next week # UTI, Pseudomonas aeurignosa patient is being treated with iv? meropenem d#11/01, started on September 2205/2021 [rash with cipro- will avoid FQs], id recommend 10 days of meropenem end date 10/01/21. # pAF - continue metoprolol succinate, continue warfarin subtherapeutic INR since Coumadin was held for procedure, continue Coumadin follow INR # HLD continue statin # CAD no chest pain, continue statin and metoprolol # BPH continue tamsulosin Time Spent with Patient Time attestation: Total time spent providing and/or coordinating discharge services: Discharge coordination time: Greater than 30 minutes Quality: Safe Use of Opioids Does Pt have an Active Cancer Diagnosis on the Problem List?: Yes Opioid Measure Date for [facility] Report: 08/28/21 Opioid Measure Time for [facility] Report: 14:16 Quality: Stroke Does the patient have a stroke diagnosis?: No Physical Exam Vital Signs: Vital Signs: Last Vital Signs Temp 97.4 F 09/27/21 11:55 Pulse 57 09/27/21 11:55 Resp 20 09/27/21 11:55 BP 129/69 09/27/21 11:55 Pulse Ox 98 09/27/21 11:55 Oxygen Flow Rate 2 09/26/21 13:00 BMI result Body Mass Index 23.5 Const: Other: Gen:? Awake alert,no?acute distress HEENT: sclera anicteric, moist mucus membranes Neck:? Mild tenderness left paravertebral muscles Lungs: clear to auscultation bilaterally Heart: regular rate and rhythm, no murmurs Abd: soft, non-tender, non-distended, bowel sounds audible Ext: no edema Skin:?warm/well-perfused Neuro: alert and?oriented x3, no focal findings Psych: appropriate affect DS: Data Data Completed and Pending Completed studies during hospitalization [Text1]: Procedures Insertion of Infusion Device into Superior Vena Cava, Percutaneous Approach (02/19/21) Insertion of Spacer into Right Knee Joint, Open Approach (02/19/21) Removal of Synthetic Substitute from Right Knee Joint, Open Approach (05/08/21) Replacement of Right Knee Joint with Synthetic Substitute, Cemented, Open Approach (05/08/21) Pending studies at discharge: Pending at discharge 09/24/21 15:01 Surgical [PTH] Routine Cytology [PTH] Stat 09/25/21 08:00 Cytology [PTH] Routine Labs on day of discharge: Laboratory Results - last 24 hr 09/27/21 08:20 PT 14.4 H INR 1.3 H Discharge Plan Discharge Patient Disposition: Xfer SNF Discharge Diagnosis: Pseudomonas UTI Intractable generalized pain Right upper lung mass with lytic bone disease and mediastinal adenopathy Hypercalcemia of malignancy Paroxysmal atrial fibrillation Pericardial effusion Referrals: [facility] [Other] - 1 Week [facility] [Outside] Glenny Henderson PA-C [Primary Care Provider] - 1 Week Discharge Medications: New sennosides [Senna Lax] 8.6 mg Tablet 17.2 mg PO BEDTIME Qty: 30 0RF polyethylene glycol 3350 17 gram Powder In Packet 17 g PO DAILY Qty: 30 0RF melatonin 3 mg Tablet 6 mg PO BEDTIME PRN (Reason: Insomnia) Qty: 30 0RF docusate sodium 100 mg Capsule 200 mg PO DAILY Qty: 30 0RF oxycodone [OxyContin] 10 mg Tablet,Oral Only,Ext.Rel.12 Hr 20 mg PO BID Qty: 20 0RF acetaminophen 325 mg Tablet 650 mg PO BID Qty: 60 0RF oxycodone 5 mg Tablet 5 mg PO Q6H PRN (Reason: Pain, Moderate) Qty: 20 0RF meropenem 1 gram recon soln 1 g IV Q8H Qty: 10 0RF Rx Instructions: End date 10/01/2021 Continued metoprolol succinate 25 mg tablet extended release 24 hr 25 mg PO DAILY Qty: 90 3RF tamsulosin 0.4 mg capsule 1 cap PO DAILY 0RF pravastatin 80 mg tablet 80 mg PO BEDTIME 0RF warfarin 2.5 mg tablet 2.5 mg PO DAILY@1700 0RF latanoprost 0.005 % drops 1 drp ophthalmic (eye) BEDTIME 0RF brimonidine 0.2 % drops 1 drp ophthalmic (eye) BID 0RF dorzolamide-timolol 22.3-6.8 mg/mL drops 1 drp ophthalmic (eye) BID 0RF Discontinued oxycodone 5 mg tablet 1 tab PO BID PRN (Reason: Pain, Moderate) 0RF Discharge Orders: Discharge Order (Routine); Ordered 09/27/21 Ordered By: Isac Luna Diet: advance to usual diet and low fat, low cholesterol Activity on Discharge: As tolerated Stand Alone Forms: Patient Portal Discharge page Care Plan Goals: Pseudomonas UTI take IV meropenem end date 10/01/2021/continue pain medication as prescribed increase dosage as needed, Check calcium and phosphorous on Thursday09/29/21 follow-up with Dr. Serrano for hypercalcemia and lung biopsy report next week Health Concerns: Continue all home medications as before Plan of Treatment: Outpatient follow-up with Dr. Serrano next week to obtain report of lung biopsy. Assessment: As per discharge summary
--- NOTE | 2021-09-27 13:45 | PC.NURSE ---
Addendum entered by Marlen Collazo RN 09/27/21 15:40: REPORT GIVEN TO RN (ANNIE) AT [facility] BY THIS RN. Addendum entered by Marlen Collazo RN 09/27/21 15:07: BACK IN ROOM. OBTAINING COVID SWAB NOW. Original Note: OFF UNIT FOR MIDLINE PLACEMENT FAMILY UPDATED THROUGHOUT SHIFT. NEW HCP PAPERWORK COMPLETED. MILA(PATIENTS DAUGHTER) [phone] LISTED NEW HCP.
--- NOTE | 2021-09-27 13:58 | MHC.CM.PN ---
pt to be dcd today at 4 to [facility]
[2021-09-27 15:26] VITALS: BP 157/81; PULSE 64; RESP 18; TEMP 36.6; O2SAT 97
--- NOTE | 2021-09-27 15:28 | HO.MIDLINE_ITS ---
PICC Line Insertion MIDLINE INSERTION Diagnosis: [INFECTED PROSTHETIC KNEE JOINT] Indication: [NEEDS IV ACCESS FOR IV ANTIBIOTICS] Pertinent Labs: [REVIEWED] Technique:Using sterile technique including cap and mask, sterile gown, glove and drape, the [right] arm was prepped and draped in the usual sterile fashion of full barrier technique with CHG. Using ultrasound guidance, the [right brachial] vein access was obtained in a second attempt by this RN. A SINGLE LUMEN, NON-PASV, (20G X 10CM) MIDLINE was positioned. The procedure was performed in [S272]. Ultrasound was used to document vein patency and for needle entry. A formal ultrasound picture was recorded. Vascular Mechanical Operator has released the line for use and it is currently dressed with a StatLock, Tegaderm, and CHG disc. Verification has been performed for blood return and line patency. Arm Circumference: [27 CM] Equipment: [[employer] POWERGLIDE PRO MIDLINE] Catheter Type: [SINGLE LUMEN, NON-PASV, (20G X 10CM)] Lot #: [[id number]]
[2021-09-27 15:46] LABS: COVID-19 Test Negative (Negative); IDNOW Serial# 16C4AD1C
--- NOTE | 2021-09-27 16:01 | MHC.CM.PN ---
PT WILL DC TO [facility] TODAY FOR STR PENDING NEGATIVE COVID RESULTS AND MIDLINE INSERTION MIDLINE REPORT SENT TO [facility]IA [facility] CURRENTLY AWAITING COVID-19 RESULTS BLS TRANSPORT ARRANGED FOR 1600 HOWEVER WILL BE DELAYED PER ACTION REPORT. DAUGHTER MILA [phone] CONTACTED AND INFORMED OF ABOVE SHE REPORTS BEING AGREEABLE WITH DCP AND SAYS SHE SPOKE TO PTS NURSE WHO HAS AGREED TO CALL HER WHEN THE PT IS LEAVING
[2021-09-27] MEDS: Warfarin Sodium 5 MG TABLET PO (17:29)
[2021-09-27] MEDS: Tamsulosin HCL 0.4 MG CAPSULE PO (17:29)
[2021-09-27 17:41] LABS: Prot Elec - Albumin 3.8 g/dL (3.8-4.8); Prot Elec - Alpha1 0.4 g/dL (0.2-0.3); Prot Elec - Alpha2 1.2 g/dL (0.5-0.9); Prot Elec - Beta 1 0.5 g/dL (0.4-0.6); Prot Elec - Beta 2 0.5 g/dL (0.2-0.5); Prot Elec - Gamma 1.2 g/dL (0.8-1.7); Prot Elec - Total Protein 7.6 g/dL (6.1-8.1)
[2021-10-01 22:02] LABS: Parathyroid Hormone Related Pr 12 pg/mL (11-20)
== END 2021-09-27 19:58 | disposition skilled nursing facility (03) | DRG 167 ==
LOC: HO.ED 19:31 → HO.EDOVER 21:02 → HO.IMC 09-21 14:10
PROVIDERS: Family Medicine; Hospitalist; Nurse Practitioner Family; Admitting Provider Hospitalist; Emergency Provider Emergency Medicine Emergency Medical Services; PCP Physician Assistant Medical; Visit Provider Hospitalist
PROC: 07974ZX Drainage of Thorax Lymphatic, Percutaneous Endoscopic Approach, Diagnostic (ICD-10-PCS; principal; 2021-09-24 13:00)
DX: C34.81 Malignant neoplasm of overlapping sites of right bronchus and lung (principal); C77.1 Secondary and unspecified malignant neoplasm of intrathoracic lymph nodes; C79.51 Secondary malignant neoplasm of bone; I45.2 Bifascicular block; N39.0 Urinary tract infection, site not specified; J91.0 Malignant pleural effusion; E86.0 Dehydration; I73.00 Raynaud's syndrome without gangrene; I48.0 Paroxysmal atrial fibrillation; I25.10 Atherosclerotic heart disease of native coronary artery without angina pectoris; I10 Essential (primary) hypertension; N40.0 Benign prostatic hyperplasia without lower urinary tract symptoms; H40.9 Unspecified glaucoma; E83.52 Hypercalcemia; R29.6 Repeated falls; B96.5 Pseudomonas (aeruginosa) (mallei) (pseudomallei) as the cause of diseases classified elsewhere; G89.3 Neoplasm related pain (acute) (chronic); E78.5 Hyperlipidemia, unspecified; Z91.81 History of falling; Z20.822 Contact with and (suspected) exposure to COVID-19; Z96.651 Presence of right artificial knee joint; Z87.891 Personal history of nicotine dependence; Z88.1 Allergy status to other antibiotic agents; Z79.01 Long term (current) use of anticoagulants; Z79.899 Other long term (current) drug therapy
CPT/HCPCS: 36410; 36415; 70450; 71111; 71260; 72070; 72125; 72131; 73030; 80048; 80053; 81001; 82306; 82310; 82570; 83519; 83735; 83970; 84100; 84156; 84165; 84166; 84484; 85025; 85027; 85610; 87071; 87086; 87088; 87186; 87205; 87502; 87635; 88112; 88172; 88173; 88177; 88184; 88185; 88305; 88341; 88342; 93005; 93308; 96361; 96365; 97163; 97530; 99285; J0171; J0696; J1100; J1170; J2185; J2250; J2405; J2430; J3010; Q9967